=== PATIENT | female | born 1960 | race Caucasian/White ===

== ENCOUNTER 2017-05-21 11:41 | Emergency (ER) | payer OTHER ==
[2017-05-21 11:52] VITALS: TEMP 98.2
[2017-05-21 12:09] LABS: Basophils % (A) 1 %; CHCM 33.4; Eosinophils % (A) 2 %; HCT 43.5 % (34.0-46.0); HDW 2.57; HGB 14.5 gm/dL (11.4-16.0); Luc % (Auto) 2; Lymphocytes % (A) 32 %; MCHC 33.3 g/dL (31.0-37.0); MCV 90.1 fL (80.0-100.0); Mean Platelet Volume 6.3; Monocytes % (A) 4 %; Neutrophils % (A) 59 %; RBC 4.83 m/uL (3.80-5.40); WBC 6.3 k/uL (3.8-10.6); WBC (Perox) 5.92
[2017-05-21 12:10] LABS: Eosinophils # (A) 0.1 k/uL (0-0.7); Luc # (Auto) 0.14; Monocytes # (A) 0.3 k/uL (0-1.0); Neutrophils # (A) 3.7 k/uL (1.3-7.7)
[2017-05-21 12:11] LABS: Anion Gap 9 mmol/L; Blood Urea Nitrogen 16 mg/dL (7-17); Carbon Dioxide 25 mmol/L (22-30); Chloride 105 mmol/L (98-107); Glucose 98 mg/dL (74-99); Sodium 139 mmol/L (137-145)
[2017-05-21 12:12] LABS: ALT 27 U/L (9-52); AST 23 U/L (14-36); Alkaline Phosphatase 82 U/L (38-126); Calcium 9.7 mg/dL (8.4-10.2); Magnesium 1.9 mg/dL (1.6-2.3); Non-African American GFR(MDRD) >60 (>60 ml/min/1.73 sqM); Total Bilirubin 0.3 mg/dL (0.2-1.3); Total Protein 7.5 g/dL (6.3-8.2)
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
[2017-05-21 12:22] LABS: Creatine Kinase 610 U/L (30-135)
--- NOTE | 2017-05-21 12:22 | XR ---
EXAMINATION TYPE: XR chest 2V DATE OF EXAM: 05/21/2017 COMPARISON: 08/01/2016 TECHNIQUE: PA and lateral views submitted. HISTORY: Chest pain FINDINGS: The lungs are clear and there is no pneumothorax, pleural effusion, or focal pneumonia. Postsurgica l change overlying the cervical spine. Atherosclerotic change aorta. No overt failure. Chronic deform ities of the left rib cage. Arthropathy of the shoulder and hypertrophic change of the spine. Subcuta neous metallic device stable. IMPRESSION: 1. No acute process.
[2017-05-21 12:27] LABS: INR 0.9 (<1.2); Partial Thromboplastin Time 28.3 sec (22.0-30.0); Prothrombin Time 9.5 sec (9.0-12.0)
[2017-05-21 12:35] LABS: Creatine Kinase MB 1.4 ng/mL (0.0-2.4); Troponin I <0.012 ng/mL (0.000-0.034)
[2017-05-21 12:45] VITALS: RESP 18
[2017-05-21 13:33] VITALS: BP 186/81; PULSE 74
== END 2017-05-21 13:34 | disposition home or self-care (01) ==
LOC: EC 11:41
DX: R07.1 Chest pain on breathing (principal); E86.0 Dehydration; I10 Essential (primary) hypertension; R55 Syncope and collapse; K21.9 Gastro-esophageal reflux disease without esophagitis; Z79.899 Other long term (current) drug therapy; Z88.6 Allergy status to analgesic agent; Z91.041 Radiographic dye allergy status; Z88.8 Allergy status to other drugs, medicaments and biological substances; Z91.013 Allergy to seafood
CPT/HCPCS: 36415; 71020; 80053; 82550; 82553; 83735; 83880; 84484; 85025; 85379; 85610; 85730; 93005; 99285

== ENCOUNTER 2020-12-27 07:10 | Day surgery (SDC) | payer OTHER ==
[2020-12-25 09:54] VITALS: BMI 34.2
[~2020-12-27 07:10] MED LIST: ALPRAZolam 0.25 MG TAB PO PRN; ALPRAZolam 0.5 MG TAB PO PRN; ATORVASTATIN 80 MG TAB PO STA; NITROGLYCERIN SL TABS 0.4 MG TAB SUBLINGUAL PRN; SODIUM CHLORIDE 0.9% 1,000 ML in EMPTY BAG 1 BAG IV ONE
[2020-12-27] MEDS ORDERED: SODIUM CHLORIDE 0.9% 1,000 ML IV ONE (07:43)
[2020-12-27 07:45] VITALS: RESP 16; TEMP 97.7
[2020-12-27] MEDS ORDERED: METOPROLOL SUCCINATE (ER) 25 MG TAB.ER.24H PO STA (07:49)
[2020-12-27 07:54] LABS: Basophils % (A) 0 %; Eosinophils % (A) 0 %; HCT 42.1 % (34.0-46.0); Lymphocytes # (A) 1.4 k/uL (1.0-4.8); Lymphocytes % (A) 11 %; MCH 30.3 pg (25.0-35.0); MCHC 33.1 g/dL (31.0-37.0); MCV 91.3 fL (80.0-100.0); Mean Platelet Volume 6.9; Monocytes # (A) 0.5 k/uL (0-1.0); Monocytes % (A) 4 %; Neutrophils # (A) 10.3 k/uL (1.3-7.7); Neutrophils % (A) 84 %; Platelet Count 355 k/uL (150-450); RBC 4.61 m/uL (3.80-5.40); RDW 13.7 % (11.5-15.5); WBC 12.3 k/uL (3.8-10.6)
[2020-12-27 08:26] LABS: African American GFR (CKD) >90 (>60 ml/min/1.73 sqM); Anion Gap 12 mmol/L; Blood Urea Nitrogen 23 mg/dL (7-17); Carbon Dioxide 23 mmol/L (22-30); Chloride 106 mmol/L (98-107); Glucose 146 mg/dL (74-99); Non-African American GFR(CKD) 79 (>60 ml/min/1.73 sqM); Potassium 4.5 mmol/L (3.5-5.1); Sodium 141 mmol/L (137-145)
[2020-12-27] MEDS ORDERED: BENZOCAINE SPRAY 1 CAN MUCOUS MEM ONE (09:25)
[2020-12-27] MEDS: fentaNYL (PF) 50 MCG/ML 2 ML AMP IV ONE ×2 (09:25→09:28)
[2020-12-27] MEDS ORDERED: MIDAZOLAM 2 MG/2 ML VIAL IV ONE ×4 (09:25→10:10)
[2020-12-27] MEDS ORDERED: IV FLUID CONTINUATION 1,000 ML IV ONE (10:00)
[2020-12-27] MEDS ORDERED: fentaNYL (PF) 50 MCG/ML 2 ML AMP IV ONE (10:10)
[2020-12-27] MEDS ORDERED: LIDOCAINE 1% INJ 10MG/ML (20 ML MDV) SQ ONE (10:12)
[2020-12-27] MEDS ORDERED: VERAPAMIL SYRINGE (5 MG/10 ML) INTRAARTER ONE (10:15)
[2020-12-27] MEDS ORDERED: HEPARIN SODIUM 1,000 UN/ML (10ML VL) IV ONE (10:21)
[2020-12-27] MEDS ORDERED: IOPAMIDOL-370 125ML BTL INJ ONE (10:27)
--- NOTE | 2020-12-27 12:42 | P.TEE ---
Description of Procedure(s): Procedure performed: Transesophageal Echocardiogram with color flow doppler, pulsed wave doppler and continuous wave doppler, moderate conscious sedation Moderate conscious sedation: Moderate conscious sedation was supplied with direct supervision of myself using Versed and Fentanyl. Complications: none Indications: Moderate to severe aortic stenosis, chest pain and shortness breath with exertion History: Patient is a pleasant 60-year-old female with history of atrial tachycardia and moderate to severe aortic stenosis. She has been having increased symptoms of dyspnea on exertion and chest pain and therefore primary tube builder recommended MARLENE and heart catheterization to further assess. PROCEDURE: After the risks, benefits and alternatives of the above mentioned procedure was explained in detail with the patient, informed consent was obtained. Patient was brought to the lab in a fasting state. Patient was given IV Versed and Fentanyl for sedation. The throat was sprayed with Hurricane to anesthetize the throat. A lubricated Omni probe was then introduced into the esophagus and stomach and multiple views were obtained. 2D echo with color flow doppler, pulsed wave doppler and continuous wave doppler was utilized. Agitated saline bubbles were injected to assess for any intra-atrial shunt. The probe was then removed. Patient tolerated the procedure well. Patient was transferred to the post procedure area in stable and satisfactory condition. FINDINGS: 1. The aortic valve appears to be bicuspid with fusion of the noncoronary and left coronary cusps. There is severe aortic calcification and sclerosis with decreased cusp mobility. There is severe aortic stenosis with a max of 4.7 m/s and a mean gradient of 56 mmHg. There is mild to moderate aortic regurgitation. 2. The mitral valve appears be normal with mild mitral regurgitation.. 3. Tricuspid valve appears to be normal with trace tricuspid regurgitation. 4. The interatrial septum is intact. No evidence of PFO. 5. Left atrial appendage is free of clot. 6. Left ventricular size and function appear to be normal. Ejection fraction 60% without wall motion abnormalities 7. Left atrium appears to be mildly dilated.
[2020-12-27] MEDS ORDERED: RX INFO: IV CONTRAST WAS GIVEN 1 EACH MISC MISCELLANE PRN (12:44)
--- NOTE | 2020-12-27 12:44 | P.CARDCATH ---
Description of Procedure: PROCEDURES PERFORMED: Bilateral coronary angiography INDICATION: Severe aortic stenosis HISTORY: Patient is a pleasant 60-year-old female with history of hypertension, hyperlipidemia, moderate to severe aortic stenosis who has been having increased episodes of dyspnea on exertion as well as chest pain and therefore was recommended by primary digital advertising specialist to have MARLENE and heart catheterization to further assess. CONSENT:I have discussed the risks, benefits and alternative therapies for the above-mentioned procedure and for both sedation/analgesia as well as necessary blood product administration, if indicated, as they pertain to this patient. The patient has indicated understanding and acceptance of the risks and procedures discussed. PROCEDURE: After the risks, benefits and alternatives of the above mentioned procedure explained in detail with the patient, informed consent was obtained. Patient was taken to the catheterization lab and prepped and draped in usual fashion. 1% lidocaine was used to anesthetize the right radial artery. A 6- Bhutanese sheath was placed in the right radial artery using modified Seldinger technique. Left coronary angiography was performed with a 5-Bhutanese JL 3.5 catheter and right coronary angiography was performed with a 5-Bhutanese JR5 catheter in various views. The right radial sheath was removed and a TR band was placed with hemostasis achieved. The patient tolerated the procedure well. Patient was transported back to the post catheterization holding area in stable condition. Conscious Sedation: Patient was monitored under the direct supervision of vision of myself for conscious sedation using Versed and fentanyl for a total duration of 20 minutes HEMODYNAMICS: Aorta: 147/82 SELECTIVE CORONARY ARTERIOGRAPHY: LEFT MAIN: The left main is a large caliber vessel which bifurcates into the LAD and circumflex. There is no significant stenosis. LEFT ANTERIOR DESCENDING CORONARY ARTERY: LAD is a large caliber vessel which wraps around to the apex. There is a mid 40% LAD stenosis and otherwise only mild luminal irregularities. LEFT CIRCUMFLEX CORONARY ARTERY: Left circumflex is a moderate caliber vessel. The circumflex is tortuous. There are mild luminal irregularities. RIGHT CORONARY ARTERY: The right coronary artery is a large caliber vessel which gives off a PDA and PLV branch and is the dominant vessel. There is no significant stenosis. FINAL IMPRESSION: 1. Relatively normal coronary arteries other than a mid LAD 40% stenosis PLAN: 1. Aggressive risk factor modification per most recent ACC/AHA guidelines. 2. Follow-up in the office in 1-2 weeks.
[2020-12-27 14:10] VITALS: BP 132/69; PULSE 65
== END 2020-12-27 14:23 | disposition home or self-care (01) ==
LOC: CATHCVL 07:10
PROVIDERS: ATTEND Internal Medicine
DX: I08.3 Combined rheumatic disorders of mitral, aortic and tricuspid valves (principal); I25.10 Atherosclerotic heart disease of native coronary artery without angina pectoris; I77.1 Stricture of artery; I47.1 Supraventricular tachycardia; I10 Essential (primary) hypertension; Z20.822 Contact with and (suspected) exposure to COVID-19; M32.9 Systemic lupus erythematosus, unspecified; E78.5 Hyperlipidemia, unspecified; M79.7 Fibromyalgia; M06.9 Rheumatoid arthritis, unspecified; E78.01 Familial hypercholesterolemia; Z91.040 Latex allergy status; Z88.8 Allergy status to other drugs, medicaments and biological substances; Z91.048 Other nonmedicinal substance allergy status; Z79.899 Other long term (current) drug therapy
CPT/HCPCS: 93312; 93320; 93325; 93454; 80048; 85025; 87635; C1894; C1769; J2250; J2001; J3010; J1644; Q9967

== ENCOUNTER 2021-02-19 12:04 | Observation (INO) | payer OTHER ==
[2021-02-19] MEDS ORDERED: NITROGLYCERIN OINT 1 INCH/GM PACKET TOPICAL STA (12:18)
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
[2021-02-19 12:55] LABS: Basophils # (A) 0.1 k/uL (0-0.2); Basophils % (A) 1 %; Eosinophils # (A) 0.1 k/uL (0-0.7); Eosinophils % (A) 1 %; HCT 43.3 % (34.0-46.0); HGB 14.2 gm/dL (11.4-16.0); Lymphocytes # (A) 2.2 k/uL (1.0-4.8); Lymphocytes % (A) 26 %; MCH 29.7 pg (25.0-35.0); MCHC 32.8 g/dL (31.0-37.0); MCV 90.5 fL (80.0-100.0); Mean Platelet Volume 7.1; Monocytes # (A) 0.3 k/uL (0-1.0); Monocytes % (A) 4 %; Neutrophils # (A) 5.5 k/uL (1.3-7.7); Neutrophils % (A) 67 %; Platelet Count 292 k/uL (150-450); RBC 4.78 m/uL (3.80-5.40); RDW 13.5 % (11.5-15.5); WBC 8.2 k/uL (3.8-10.6)
--- NOTE | 2021-02-19 12:57 | XR ---
EXAMINATION TYPE: XR chest 2V DATE OF EXAM: 02/19/2021 COMPARISON: 05/21/2017 TECHNIQUE: PA and lateral views submitted. HISTORY: Pain FINDINGS: The heart is normal in size and there is atherosclerotic changes aorta with coarsened interstitium an d chronic rib deformities. Arthropathy of the shoulders. Postsurgical change overlying the cervical s pine. No pneumothorax or pleural effusion. Degenerative changes of the spine. IMPRESSION: 1. Heart size is normal in the interstitium is coarsened which may be chronic correlate for bronchiti s. Chronic interstitial lung disease in the differential.
[2021-02-19 13:12] LABS: ALT 21 U/L (4-34); AST 29 U/L (14-36); African American GFR (CKD) >90 (>60 ml/min/1.73 sqM); Albumin 4.7 g/dL (3.5-5.0); Alkaline Phosphatase 76 U/L (38-126); Anion Gap 7 mmol/L; Blood Urea Nitrogen 18 mg/dL (7-17); Calcium 10.2 mg/dL (8.4-10.2); Carbon Dioxide 29 mmol/L (22-30); Chloride 103 mmol/L (98-107); Glucose 110 mg/dL (74-99); Non-African American GFR(CKD) >90 (>60 ml/min/1.73 sqM); Potassium 4.8 mmol/L (3.5-5.1); Sodium 139 mmol/L (137-145); Total Bilirubin 0.4 mg/dL (0.2-1.3); Total Protein 7.5 g/dL (6.3-8.2)
[2021-02-19 13:17] LABS: D-Dimer 0.41 mg/L FEU (<0.60); INR 0.9 (<1.2); Prothrombin Time 9.6 sec (9.0-12.0)
[2021-02-19 13:38] LABS: Partial Thromboplastin Time 21.9 sec (22.0-30.0)
[2021-02-19] MEDS ORDERED: NITROGLYCERIN SL TABS 0.4 MG TAB SUBLINGUAL PRN (14:41)
[2021-02-19] MEDS: NITROGLYCERIN OINT 1 INCH/GM PACKET TOPICAL SCH ×2 (16:05→18:30)
[2021-02-19] MEDS ORDERED: CYCLOBENZAPRINE 5 MG TAB PO PRN (17:38)
[2021-02-19] MEDS ORDERED: ONDANSETRON ODT 4 MG TAB PO PRN (17:38)
[2021-02-19] MEDS ORDERED: diazePAM 2 MG TAB PO PRN (17:38)
[2021-02-19] MEDS ORDERED: bisacodyL 5 MG TABLET.DR PO PRN (17:38)
[2021-02-19] MEDS ORDERED: HEPARIN SODIUM 1,000 UN/ML (10ML VL) IV ONE (17:42)
[2021-02-19] MEDS ORDERED: HEPARIN SODIUM 1,000 UN/ML (10ML VL) IV PRN (17:42)
[2021-02-19] MEDS ORDERED: HEPARIN SOD,PORK IN 0.45% NACL 25,000 UNIT in 0.45% NACL 1 250ML.BAG IV SCH (17:45)
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
[2021-02-19] MEDS ORDERED: lisinopriL 20 MG TAB PO SCH (21:00)
[2021-02-19] MEDS: FOLIC ACID 1 MG TAB PO SCH (21:32)
[2021-02-20] MEDS: NITROGLYCERIN OINT 1 INCH/GM PACKET TOPICAL SCH ×2 (00:13→06:23)
[2021-02-20 07:29] LABS: Basophils % (A) 1 %; Eosinophils # (A) 0.1 k/uL (0-0.7); Eosinophils % (A) 2 %; HCT 38.1 % (34.0-46.0); HGB 13.1 gm/dL (11.4-16.0); Lymphocytes # (A) 2.5 k/uL (1.0-4.8); Lymphocytes % (A) 39 %; MCH 31.1 pg (25.0-35.0); MCHC 34.2 g/dL (31.0-37.0); MCV 90.7 fL (80.0-100.0); Mean Platelet Volume 6.9; Monocytes # (A) 0.3 k/uL (0-1.0); Monocytes % (A) 5 %; Neutrophils # (A) 3.4 k/uL (1.3-7.7); Neutrophils % (A) 53 %; Platelet Count 231 k/uL (150-450); RBC 4.21 m/uL (3.80-5.40); RDW 13.1 % (11.5-15.5); WBC 6.4 k/uL (3.8-10.6)
[2021-02-20 07:37] LABS: INR 0.9 (<1.2); Prothrombin Time 10.2 sec (9.0-12.0)
[2021-02-20] MEDS ORDERED: METOPROLOL SUCCINATE (ER) 25 MG TAB.ER.24H PO SCH (09:00)
[2021-02-20] MEDS: FOLIC ACID 1 MG TAB PO SCH (09:22)
[2021-02-20 10:19] VITALS: BP 158/89; PULSE 72; RESP 18; TEMP 97.6
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
[2021-02-20 11:51] LABS: Chol/HDL Ratio 7.63
[2021-02-20] MEDS ORDERED: EZETIMIBE 10 MG TAB PO SCH (12:00)
--- NOTE | 2021-02-20 14:58 | P.DS ---
Providers Date of admission: 02/19/21 14:41 Attending physician: Enedina Barbour Consults: 02/19/21 14:41 Consult Physician Urgent Consulting Provider: Junaid Mcneill Consult Reason/Comments: cp Do you want consulting provider notified?: Yes Primary care physician: Aubrey Clinton MD Hospital Course: Patient was a 61-year-old female came in with complaints of chest pain which is started after she became anxious while at dentist's office and was in pain at that time at the time her blood pressure was high patient did take some of her blood pressure medication after the dental procedure. Patient believes it's her anxiety although the dental office did call EMS and patient was sent to ER. Patient had some T-wave inversions from lead 4 to lead 6 on the EKG patient chest pain resolved denied any diaphoresis denied any nausea lightheadedness associated with the her chest pain. Patient does have history of severe mitral valvular disease for which patient is being evaluated for valve replacement. Patient doesn't have any history of heart failure had a recent cardiac catheterization in month of December 2020 which did not show any significant occlusion in any of the coronary arteries except f or 40% occlusion in the mid LAD. Patient does have mildly elevated troponins of 0.04 and 0.06. Chest x-ray was suspicious for atypical pneumonia although patient doesn't have any symptoms of atypical pneumonia. D-dimer is negative 02/20/2021 Patient was evaluated by cardiology cleared for discharge. Patient had has a recent cardiac catheterization which did not show any significant atheroscle rotic vascular disease. PHYSICAL EXAMINATION: GENERAL: The patient is alert and oriented x3, not in any acute distress. Well developed, well nourished. HEENT: Pupils are round and equally reacting to light. EOMI. No scleral icterus. No conjunctival pallor. Normocephalic, atraumatic. No pharyngeal erythema. No thyromegaly. CARDIOVASCULAR: S1 and S2 present. No murmurs, rubs, or gallops. PULMONARY: Chest is clear to auscultation, no wheezing or crackles. ABDOMEN: Soft, nontender, nondistended, normoactive bowel sounds. No palpable organomegaly. MUSCULOSKELETAL: No joint swelling or deformity. EXTREMITIES: No cyanosis, clubbing, or pedal edema. NEUROLOGICAL: Gross neurological examination did not reveal any focal deficits. SKIN: No rashes. Assessment and plan -Chest pain: Most probably related to anxiety patient had a recent cardiac catheterization and cardiac catheterization findings as mentioned above. Patient will be discharged today. I did stenosis may have contributed to her chest pain and other symptoms of occasional lightheadedness -Mildly elevated troponins low possibility of type I non-ST elevation [place] -Ruled out pulmonary embolism -Severe aortic stenosis without any congestive heart failure -Gastroesophageal reflux disease -hypertension -hyperlipidemia -Fibromyalgia Plan - Discharge Summary Discharge Rx Participant: No New Discharge Prescriptions: Continue diazePAM [Valium] 2 mg PO BID PRN PRN Reason: Anxiety oxyCODONE HCL [OxyIR] 5 mg PO Q6H PRN PRN Reason: Pain Ondansetron [Zofran ODT] 4 mg PO TID PRN PRN Reason: Nausea And Vomiting Cyclobenzaprine [Flexeril] 10 mg PO Q8H PRN PRN Reason: Muscle Pain/Spasm lisinopriL [Zestril] 20 mg PO HS Ergocalciferol (Vitamin D2) [Vitamin D2] 50,000 unit PO MOFR bisacodyL [Dulcolax] 5 mg PO DAILY PRN PRN Reason: Constipation Folic Acid 1 mg PO BID Ezetimibe [Zetia] 10 mg PO DAILY@1200 Metoprolol Succinate [Toprol XL] 25 mg PO DAILY Discharge Medication List Cyclobenzaprine [Flexeril] 10 mg PO Q8H PRN 05/28/16 [History] Ondansetron [Zofran ODT] 4 mg PO TID PRN 05/28/16 [History] diazePAM [Valium] 2 mg PO BID PRN 05/28/16 [History] lisinopriL [Zestril] 20 mg PO HS 05/28/16 [History] oxyCODONE HCL [OxyIR] 5 mg PO Q6H PRN 05/28/16 [History] Ergocalciferol (Vitamin D2) [Vitamin D2] 50,000 unit PO MOFR 05/21/17 [History] Ezetimibe [Zetia] 10 mg PO DAILY@1200 12/25/20 [History] Metoprolol Succinate [Toprol XL] 25 mg PO DAILY 12/25/20 [History] bisacodyL [Dulcolax] 5 mg PO DAILY PRN 12/25/20 [History] Folic Acid 1 mg PO BID 02/19/21 [History] Follow up Appointment(s)/Referral(s): Junaid Mcneill MD [STAFF PHYSICIAN] - 02/28/21 4:15 pm (Please keep previously scheduled appointment. ) Aubrey Clinton MD [Primary Care Provider] - 03/11/21 1:30 pm (Please keep previously scheduled appointment. ) Patient Instructions/Handouts: Chest Pain (DC), Aortic Stenosis (DC) Discharge Disposition: HOME SELF-CARE
[2021-02-21] MEDS ORDERED: ERGOCALCIFEROL 1,250 MCG (50,000 IU) CAPSULE PO SCH (09:00)
== END 2021-02-20 14:15 | disposition home or self-care (01) ==
LOC: EC 12:04 → 3SCARD 14:41
PROVIDERS: ADMIT Internal Medicine; ATTEND Internal Medicine
DX: R07.89 Other chest pain (principal); I08.0 Rheumatic disorders of both mitral and aortic valves; I25.10 Atherosclerotic heart disease of native coronary artery without angina pectoris; R79.89 Other specified abnormal findings of blood chemistry; I10 Essential (primary) hypertension; I47.1 Supraventricular tachycardia; I48.0 Paroxysmal atrial fibrillation; J84.9 Interstitial pulmonary disease, unspecified; E78.5 Hyperlipidemia, unspecified; F41.9 Anxiety disorder, unspecified; K21.9 Gastro-esophageal reflux disease without esophagitis; M06.9 Rheumatoid arthritis, unspecified; M79.7 Fibromyalgia; G43.909 Migraine, unspecified, not intractable, without status migrainosus; L93.1 Subacute cutaneous lupus erythematosus; K51.90 Ulcerative colitis, unspecified, without complications; G62.9 Polyneuropathy, unspecified; R41.3 Other amnesia; Z20.822 Contact with and (suspected) exposure to COVID-19; Z79.899 Other long term (current) drug therapy; Z88.6 Allergy status to analgesic agent; Z91.041 Radiographic dye allergy status; Z91.040 Latex allergy status; Z91.013 Allergy to seafood; Z88.8 Allergy status to other drugs, medicaments and biological substances; Z91.048 Other nonmedicinal substance allergy status; Z87.11 Personal history of peptic ulcer disease; Z87.820 Personal history of traumatic brain injury; Z90.710 Acquired absence of both cervix and uterus; Z90.49 Acquired absence of other specified parts of digestive tract; Z98.891 History of uterine scar from previous surgery; Z98.890 Other specified postprocedural states; Z80.9 Family history of malignant neoplasm, unspecified
CPT/HCPCS: 96366 ×3; 93005 ×2; 96376; 96365; 99285; 36415; 85379; 83880; 80061; 80053; 83735; 84484; 85025 ×2; 85610 ×2; 85730 ×2; 83721; 87635; 71046; G0378 ×2; J1644 ×2

== ENCOUNTER → 2021-03-11 | Outpatient (CLI) | payer OTHER ==
[2021-03-11 10:12] LABS: INR 0.9 (<1.2)
[2021-03-11 10:14] LABS: HCT 38.8 % (34.0-46.0); HGB 13.3 gm/dL (11.4-16.0); MCHC 34.2 g/dL (31.0-37.0); MCV 90.5 fL (80.0-100.0); Mean Platelet Volume 7.4; Platelet Count 281 k/uL (150-450); RBC 4.28 m/uL (3.80-5.40); RDW 12.9 % (11.5-15.5); WBC 9.7 k/uL (3.8-10.6)
[2021-03-11 10:20] LABS: ALT 26 U/L (4-34); AST 34 U/L (14-36); African American GFR (CKD) >90 (>60 ml/min/1.73 sqM); Albumin 4.8 g/dL (3.5-5.0); Alkaline Phosphatase 81 U/L (38-126); Anion Gap 6 mmol/L; Appearance,Urine Clear (Clear); Bilirubin,Urine Negative (Negative); Blood Urea Nitrogen 11 mg/dL (7-17); Blood,Urine Negative (Negative); Calcium 10.2 mg/dL (8.4-10.2); Carbon Dioxide 29 mmol/L (22-30); Chloride 104 mmol/L (98-107); Color,Urine Yellow; Glucose 115 mg/dL (74-99); Glucose,Urine (UA) Negative (Negative); Ketones,Urine Negative (Negative); Leukocyte Esterase,Urine Negative (Negative); Magnesium 1.9 mg/dL (1.6-2.3); Nitrite,Urine Negative (Negative); Non-African American GFR(CKD) 85 (>60 ml/min/1.73 sqM); Potassium 3.8 mmol/L (3.5-5.1); Protein,Urine Trace (Negative); Sodium 139 mmol/L (137-145); Specific Gravity,Urine 1.017 (1.001-1.035); Total Bilirubin 0.7 mg/dL (0.2-1.3); Total Protein 7.7 g/dL (6.3-8.2); Urobilinogen,Urine <2.0 mg/dL (<2.0)
[2021-03-11 11:53] LABS: T4, Free (Free Thyroxine) 1.29 ng/dL (0.78-2.19)
--- NOTE | 2021-03-11 14:36 | US ---
EXAMINATION TYPE: US carotid duplex BILAT DATE OF EXAM: 03/11/2021 COMPARISON: NONE CLINICAL HISTORY: OPEN HEART. EXAM MEASUREMENTS: RIGHT: Peak Systolic Velocity (PSV) cm/sec ----- Right CCA: 81.7 ----- Right ICA: 94.3 ----- Right ECA: 91.0 ICA/CCA ratio: 1.2 RIGHT: End Diastole cm/sec ----- Right CCA: 22.3 ----- Right ICA: 32.6 ----- Right ECA: 19.4 LEFT: Peak Systolic Velocity (PSV) cm/sec ----- Left CCA: 78.9 ----- Left ICA: 103.1 ----- Left ECA: 119.0 ICA/CCA ratio: 1.3 LEFT: End Diastole cm/sec ----- Left CCA: 18.3 ----- Left ICA: 34.5 ----- Left ECA: 18.8 VERTEBRALS (direction of flow): Right Vertebral: Antegrade Left Vertebral: Antegrade Rhythm: Normal Moderate plaque at bulbs bilaterally. No significant stenosis IMPRESSION: Atherosclerosis without sonographic evidence for hemodynamically significant stenosis in the bilatera l carotid arteries. Criteria for Assigning % of Stenosis / Diameter reduction (Estimation based on the indirect measurements of the internal carotid artery velocities (ICA PSV). 1. Normal (no stenosis)=ICA PSV < 125 cm/s: ratio < 2.0: ICA EDV<40 cm/s. 2. Less than 50% stenosis=ICA PSV < 125 cm/s: ratio < 2.0: ICA EDV<40 cm/s. 3. 50 to 69% stenosis=ICA PSV of 125 to 230 cm/s: ration 2.0 ? 4.0: ICA EDV 40-100 cm/s. 4. Greater than 70% stenosis to near occlusion= ICA PSV > 230 cm/s: ratio > 4.0: ICA EDV > 100 cm/s. 5. Near occlusion= ICA PSV velocities may be low or undetectable: variable ratio and ICA EDV. 6. Total occlusion=unable to detect flow.
[2021-03-11 18:53] LABS: Hemoglobin A1C 5.7 % (4.0-6.0)
[2021-03-12 01:20] LABS: Chol/HDL Ratio 5.88; Cholesterol 247 mg/dL (0-200)
[2021-03-12 03:01] LABS: Hepatitis B Core IgM Non-Reactive (Non-Reactive); Hepatitis B Surface Antigen Non-Reactive (Non-Reactive); Hepatitis C IgG Antibody Non-Reactive (Non-Reactive)
--- NOTE | 2021-03-12 12:30 | P.VSCSTY ---
Greater Saphenous Vein Mapping This is bilateral lower extremity greater saphenous vein mapping. Date of service: 03/11/2021 Vein quality and ultrasound appearance: We see no intraluminal thrombus or obvious wall changes.. Vein size groin right : 6.6 x 6.0 groin left: 6.2 x 5.0 High thigh right: 2.7 x 2.8 high thigh left: 5.1 x 4.0 Mid thigh right: 1.6 x 2.2 mid thigh left: 3.2 x 3.1 Above-knee right: 1.6 x 1.9 above- knee left: 2.5 x 2.0 Below knee right: 2.3 x 2.1 below-knee left: 2.2 x 2.4 Mid calf right: 2.3 x 2.7 mid calf left: 2.3 x 2.2 Ankle right: 2.6 x 1.7 ankle left: 2.2 x 2.1 Impression: Usable greater saphenous vein left leg. There is an area at the knee that may be a bit small for use as conduit. There may be some upper thigh vein usable on the right greater saphenous and potentially below the knee on the right. Mid thigh to knee appear to small for use as conduit. Clinical correlation recommended..
--- NOTE | 2021-03-12 12:30 | P.ARTDOP ---
Arterial Doppler LOWER EXTREMITY ARTERIAL DOPPLER: DATE OF SERVICE: 03/11/2021 Reason for study: Preop CABG. Doppler waveforms: Multiphasic bilaterally throughout. Pulse volume recording: []. Pressure gradients: None. Ankle-brachial indices: Greater than 1 bilaterally. Toe brachial indices: [] on the right, [] on the left Impression: Normal study.
[2021-03-13 16:36] LABS: Hepatitis A Antibody IgM Non-Reactive (Non-Reactive)
== END | disposition home or self-care (01) ==
LOC: LABPAT 08:50
PROVIDERS: ATTEND Thoracic Surgery (Cardiothoracic Vascular Surgery)
DX: Z01.810 Encounter for preprocedural cardiovascular examination (principal); Z20.822 Contact with and (suspected) exposure to COVID-19; I65.23 Occlusion and stenosis of bilateral carotid arteries; I10 Essential (primary) hypertension; I25.10 Atherosclerotic heart disease of native coronary artery without angina pectoris; I35.0 Nonrheumatic aortic (valve) stenosis; M06.9 Rheumatoid arthritis, unspecified; E78.5 Hyperlipidemia, unspecified
CPT/HCPCS: 94150; 84439; 80061; 80053; 80074; 84443; 83735; 85027; 85610; 85730; 81003; 87070; 87086; 83036; 93970; 93922; 93880; 36415; U0003; C9803; U0005; 93923

== ENCOUNTER 2021-03-14 05:32 | Inpatient (IN) | payer OTHER ==
--- NOTE | 2021-03-11 10:26 | P.PN ---
Progress Note - Text Progress Note Date: 03/11/21 5 meter walk test completed without difficulty: #1 4.02 sec #2 4.05 sec #3 3.66 sec
[~2021-03-14 05:32] MED LIST changes: +ALBUMIN HUMAN 25% 50 ML IV ONE; +ALBUMIN HUMAN 5% 500 ML IVPB ONE; -ALPRAZolam 0.25 MG TAB PO PRN; -ALPRAZolam 0.5 MG TAB PO PRN; +ASPIRIN 325 MG TAB PO ONE; +ATORVASTATIN 10 MG TAB PO ONE; -ATORVASTATIN 80 MG TAB PO STA; +CALCIUM CHLORIDE 100 MG/ML 10 ML SYRINGE IV ONE; +CHLORHEXIDINE GLUCONATE 15 ML CUP MUCOUS MEM ONE; +CLEVIDIPINE BUTYRATE 25 MG in EMPTY BAG 1 BAG IV ONE; +ELECTROLYTE-A SOLUTION 1,000 ML with POTASSIUM CHLORIDE 100 MEQ, MAGNESIUM SULFATE 16 M... IV ONE; +ELECTROLYTE-A SOLUTION 1,000 ML with POTASSIUM CHLORIDE 40 MEQ, MAGNESIUM SULFATE 16 ME... IV ONE; +HEPARIN SODIUM 1,000 UN/ML (10ML VL) IV ONE; +HEPARIN SODIUM,PORCINE 5,000 UNIT in SODIUM CHLORIDE 0.9% 500 ML 500 ML IV ONE; +INSULIN REGULAR 100 UNIT in SODIUM CHLORIDE 0.9% 100 ML IV ONE; +LACTATED RINGERS 1,000 ML IV ONE; +LACTATED RINGERS 1,000 ML IV SCH; +MAGNESIUM SULFATE MG 500 MG/ML IV ONE; +MANNITOL 25% 12.5 GM/50 ML VIAL IV ONE; +METOPROLOL TARTRATE 12.5 MG TAB PO ONE; +NITROGLYCERIN SL TABS 0.4 MG TAB SUBLINGUAL ONE; -NITROGLYCERIN SL TABS 0.4 MG TAB SUBLINGUAL PRN; +NITROGLYCERIN-D5W PMX 25 MG/250 ML BTL IV ONE; +NITROGLYCERIN-D5W PMX 50 MG in DEXTROSE/WATER 1 250ML.BAG IV ONE; +NOREPINEPHRINE 4 MG in SODIUM CHLORIDE 0.9% 250 ML IV ONE; +PAPAVERINE 360 MG in SODIUM CHLORIDE 0.9% 90 ML IV ONE; +PHENYLEPHRINE 10 MG/ML VIAL IV ONE; +PHENYLEPHRINE 40 MG in SODIUM CHLORIDE 0.9% 250 ML IV ONE; +PROTAMINE SULFATE 10 MG/ML 25 ML VIAL IV ONE; +PROTAMINE SULFATE 250 MG in EMPTY BAG 1 BAG IV ONE; +SODIUM BICARB 8.4% 50 ML SYR (1 MEQ/ML) IV ONE; +SODIUM CHLORIDE 0.9% 1,000 ML IV ONE; -SODIUM CHLORIDE 0.9% 1,000 ML in EMPTY BAG 1 BAG IV ONE; +TRANEXAMIC ACID 2,000 MG in SODIUM CHLORIDE 0.9% 80 ML IV ONE; +propofoL 1,000 MG/100 ML VIAL IV ONE
[2021-03-14] MEDS ORDERED: LIDOCAINE 1% (10MG/ML) FOR IV START INTRADERMA ONE (06:18)
[2021-03-14] MEDS ORDERED: MIDAZOLAM 2 MG/2 ML VIAL IV PRN (07:00)
[2021-03-14] MEDS ORDERED: VECURONIUM 10 MG VIAL IV ONE (07:44)
[2021-03-14] MEDS ORDERED: ELECTROLYTE-R (PH 7.4) 1,000 ML IV.SOLN IV ONE (07:44)
[2021-03-14] MEDS ORDERED: SODIUM CHLORIDE 0.9% 250 ML BAG ONE (07:44)
[2021-03-14] MEDS ORDERED: TRANEXAMIC ACID 1,000 MG/10 ML VIAL ONE (07:44)
[2021-03-14] MEDS ORDERED: MAGNESIUM SULFATE 4 MEQ/ML 10ML VIAL ONE (07:44)
[2021-03-14] MEDS ORDERED: CALCIUM CHLORIDE 100 MG/ML 10 ML SYRINGE ONE (07:44)
[2021-03-14] MEDS ORDERED: PROTAMINE SULFATE 10 MG/ML 25 ML VIAL IV ONE (07:44)
[2021-03-14] MEDS ORDERED: fentaNYL (PF) 50 MCG/ML 50 ML VIAL ONE (07:44)
[2021-03-14] MEDS ORDERED: CLEVIDIPINE BUTYRATE 25 MG/50 ML VIAL IV ONE (07:44)
[2021-03-14] MEDS ORDERED: PROPOFOL 10 MG/ML 20 ML VIAL IV ONE (07:44)
[2021-03-14] MEDS ORDERED: SODIUM CHLORIDE 0.9% IRRIG 1,000 ML BTL IRRIGATION ONE (07:44)
[2021-03-14] MEDS ORDERED: HEPARIN SODIUM,PORCINE 10,000 UNIT/ML 1 ML VIAL ONE (07:44)
[2021-03-14] MEDS ORDERED: LIDOCAINE 2% SYG (PF) 100 MG/5 ML ONE (07:44)
[2021-03-14] MEDS ORDERED: MIDAZOLAM 2 MG/2 ML VIAL ONE (07:44)
--- NOTE | 2021-03-14 08:00 | P.ANPRN ---
Procedure Note - Anesthesia - Invasive Line Right Arterial Line Time Out Performed: Yes Date of Procedure: 03/14/21 Time of Procedure: 07:41 Location of Patient: Phase II Preparation: Sterile Prep, Sterile Dressing Arterial Line Location: Radial Needle Guage: 20 Narrative: R arterial line placed by PROGRAM MANAGEMENT MANAGER Right Central Line Time Out Performed: Yes Date of Procedure: 03/14/21 Time of Procedure: 07:44 Location of Patient: Phase II Preparation: Sterile Prep, Sterile Dressing Ultrasound Used: Yes Purpose - Visualization and Identification of Vasculature: Yes Needle Guage: 18 Image Stored and Saved: Yes Narrative: 9F cordis placed using Seldinger technique Right Aurora Omar Time Out Performed: Yes Date of Procedure: 03/14/21 Time of Procedure: 07:49 Location of Patient: PreOp Preparation: Sterile Prep, Sterile Dressing Narrative: RICOAN floated to main PA. Secured @ 41 cm
[2021-03-14 08:49] LABS: ABG Base Excess 0.3 mmol/L; ABG HCO3 27 mmol/L (21-25); ABG Hematocrit 36 % (34.0-46.0); ABG PCO2 50 mmHg (35-45); ABG PH 7.33 (7.35-7.45); ABG PO2 281 mmHg (83-108); ABG Potassium Whole Blood 4.1 mmol/L (3.4-4.5); ABG TCO2 28 mmol/L (19-24)
[2021-03-14 09:40] LABS: ABG Base Excess 1.6 mmol/L; ABG HCO3 27 mmol/L (21-25); ABG Hematocrit 33 % (34.0-46.0); ABG Ionized Calcium 4.7 mg/dL (4.5-5.3); ABG PCO2 44 mmHg (35-45); ABG PO2 267 mmHg (83-108); ABG Potassium Whole Blood 4.1 mmol/L (3.4-4.5); ABG Sodium Whole Blood 140 mmol/L (135-146); ABG TCO2 28 mmol/L (19-24)
[2021-03-14 10:10] LABS: ABG Base Excess 0.6 mmol/L; ABG HCO3 25 mmol/L (21-25); ABG Hematocrit 26 % (34.0-46.0); ABG Lactic Acid Whole Blood 0.9 mmol/L (0.5-1.6); ABG PCO2 40 mmHg (35-45); ABG PH 7.41 (7.35-7.45); ABG PO2 318 mmHg (83-108); ABG Sodium Whole Blood 135 mmol/L (135-146); ABG TCO2 27 mmol/L (19-24)
[2021-03-14 10:45] LABS: ABG Base Excess 0.9 mmol/L; ABG HCO3 25 mmol/L (21-25); ABG Hematocrit 25 % (34.0-46.0); ABG Ionized Calcium 4.2 mg/dL (4.5-5.3); ABG Lactic Acid Whole Blood 0.8 mmol/L (0.5-1.6); ABG PCO2 39 mmHg (35-45); ABG PH 7.43 (7.35-7.45); ABG PO2 390 mmHg (83-108); ABG Potassium Whole Blood 5.1 mmol/L (3.4-4.5); ABG Sodium Whole Blood 137 mmol/L (135-146); ABG TCO2 27 mmol/L (19-24)
[2021-03-14 11:42] LABS: ABG Base Excess -0.4 mmol/L; ABG Glucose Whole Blood 136 mg/dL (75-99); ABG HCO3 25 mmol/L (21-25); ABG Hematocrit 29 % (34.0-46.0); ABG Ionized Calcium 4.7 mg/dL (4.5-5.3); ABG Lactic Acid Whole Blood 1.9 mmol/L (0.5-1.6); ABG PCO2 43 mmHg (35-45); ABG PH 7.37 (7.35-7.45); ABG PO2 362 mmHg (83-108); ABG Potassium Whole Blood 4.5 mmol/L (3.4-4.5); ABG Sodium Whole Blood 138 mmol/L (135-146); ABG TCO2 26 mmol/L (19-24)
[2021-03-14 11:46] LABS: ABG Glucose Whole Blood 105 mg/dL (75-99); ABG Lactic Acid Whole Blood 1.5 mmol/L (0.5-1.6); ABG Sodium Whole Blood 140 mmol/L (135-146)
[2021-03-14 11:48] LABS: ABG Glucose Whole Blood 118 mg/dL (75-99); ABG Lactic Acid Whole Blood 1.2 mmol/L (0.5-1.6)
[2021-03-14 11:49] LABS: ABG Glucose Whole Blood 126 mg/dL (75-99)
[2021-03-14 11:50] LABS: ABG Glucose Whole Blood 144 mg/dL (75-99)
--- NOTE | 2021-03-14 12:14 | P.ANPRN ---
Procedure Note - Anesthesia - MARLENE Intraop Pre Bypass MARLENE Intraop - Anesthesia Indication: Aortic stenosis Date of Procedure: 03/14/21 Pre-operative Diagnosis: Post-operative Diagnosis: Same Surgeon: Sergey Mercado Left Ventricle: EF 65% Ejection Fraction: Normal Regional Wall Motion Abnormalities: None Left Ventricle Hypertrophy: Yes (1.2 cm) R. Ventricle Function: Normal Aortic Valve: Peak 70 mmHg, Mean 40 mmHg Anatomy: Trileaflet Aortic Stenosis: Severe Aortic Regurgitation: Mild Mitral Stenosis: None Mitral Regurgitation: Mild Tricuspid Stenosis: None Tricuspid Regurgitation: Mild Pulmonic Stenosis: None Pulmonic Regurgitation: Trace R. Atrial Dilation: No R. Atrial PFO: Yes L. Atrial Dilation: No Aortic Dissection: No Aortic Calcification: Moderate Plural Effusion: None - MARLENE Intraop Post Bypass MARLENE Intraop Post Bypass Procedure Performed: AVR 23 mm bioprosthetic Ejection Fraction: Normal Regional Wall Motion Abnormalities: None R. Ventricle Function: Normal Aortic Valve: Peak 23 mmHg, Mean 9 mmHg Mitral Valve: Unchanged Tricuspid: moderate TR Pulmonic: Unchanged Aortic Dissection: No
[2021-03-14 12:37] LABS: Glucose,Whole Blood 139 mg/dL (75-99)
[2021-03-14] MEDS ORDERED: hydrALAZINE HCL 20 MG/ML 1 ML VIAL IVP PRN (12:38)
[2021-03-14] MEDS ORDERED: DEXTROSE 5% IN WATER 100 ML with AMIODARONE 150 MG IV PRN (12:38)
[2021-03-14] MEDS ORDERED: ALBUMIN HUMAN 5% 250 ML in EMPTY BAG 1 BAG IVPB PRN (12:38)
[2021-03-14] MEDS ORDERED: BENZOCAINE/MENTHOL LOZENG 1 EACH LOZENGE MUCOUS MEM PRN (12:38)
[2021-03-14] MEDS ORDERED: METOCLOPRAMIDE 5 MG/ML 2 ML VIAL IVP PRN (12:38)
[2021-03-14] MEDS ORDERED: Magnesium Replacement Protocol 1 EACH MISC MISCELLANE PRN (12:38)
[2021-03-14] MEDS ORDERED: Potassium Replacement Protocol 1 EACH MISC MISCELLANE PRN (12:38)
[2021-03-14] MEDS ORDERED: CALCIUM GLUCONATE 2 GM in SODIUM CHLORIDE 0.9% 100 ML IVPB PRN (12:38)
[2021-03-14] MEDS ORDERED: Phosphorus Replacement Protoco 1 EACH MISC MISCELLANE PRN (12:38)
[2021-03-14] MEDS ORDERED: IPRATROPIUM-ALBUTEROL 3 ML NEB INHALATION PRN (12:38)
[2021-03-14 12:49] LABS: ABG Base Excess 0.3 mmol/L; ABG HCO3 26 mmol/L (21-25); ABG Oxygen Saturation 99.6 % (94-97); ABG PCO2 45 mmHg (35-45); ABG PH 7.36 (7.35-7.45); ABG PO2 268 mmHg (83-108); ABG TCO2 27 mmol/L (19-24); Allen Test Performed? Yes
[2021-03-14 12:59] LABS: Basophils % (A) 0 %; Eosinophils # (A) 0.1 k/uL (0-0.7); Eosinophils % (A) 1 %; HCT 30.3 % (34.0-46.0); HGB 10.4 gm/dL (11.4-16.0); Lymphocytes # (A) 1.4 k/uL (1.0-4.8); Lymphocytes % (A) 16 %; MCH 31.6 pg (25.0-35.0); MCHC 34.3 g/dL (31.0-37.0); MCV 91.9 fL (80.0-100.0); Mean Platelet Volume 8.1; Monocytes # (A) 0.3 k/uL (0-1.0); Monocytes % (A) 4 %; Neutrophils # (A) 6.9 k/uL (1.3-7.7); Neutrophils % (A) 79 %; Platelet Count 160 k/uL (150-450); RDW 12.9 % (11.5-15.5); WBC 8.8 k/uL (3.8-10.6)
[2021-03-14 13:03] LABS: Ionized Calcium 5.1 mg/dL (4.5-5.3)
--- NOTE | 2021-03-14 13:03 | XR ---
EXAMINATION TYPE: XR chest 1V portable DATE OF EXAM: 03/14/2021 COMPARISON: Chest x-ray 02/19/2021 HISTORY: Postop cardiac surgery TECHNIQUE: Single frontal view of the chest is obtained. FINDINGS: Endotracheal tube and NG tube, right-sided chest tube, median sternal drain and right jugu lar central venous catheter are overlying appropriate positions. Patient is rotated and post median s ternotomy. Left atrial appendage clip placement is noted. Aorta is dense. There is no evident pneumot horax or pleural effusion. Lung volumes are low. Heart size may be accentuated due to rotation. Patie nt shows postop change to the cervical spine. Minimal basilar atelectatic changes are suspected. The osseous structures are stable. IMPRESSION: Satisfactory postoperative chest x-ray, expiratory rotated exam.
[2021-03-14] MEDS: CLEVIDIPINE BUTYRATE 25 MG in EMPTY BAG 1 BAG IV SCH ×2 (13:19→14:39)
[2021-03-14] MEDS: LACTATED RINGERS 1,000 ML IV SCH (13:19)
[2021-03-14 13:23] LABS: Glucose,Whole Blood 143 mg/dL (75-99)
[2021-03-14 13:24] LABS: ALT 25 U/L (4-34); AST 58 U/L (14-36); African American GFR (CKD) >90 (>60 ml/min/1.73 sqM); Albumin 2.6 g/dL (3.5-5.0); Alkaline Phosphatase 37 U/L (38-126); Anion Gap 3 mmol/L; Blood Urea Nitrogen 12 mg/dL (7-17); Calcium 8.4 mg/dL (8.4-10.2); Carbon Dioxide 26 mmol/L (22-30); Chloride 108 mmol/L (98-107); Glucose 130 mg/dL (74-99); Magnesium 2.8 mg/dL (1.6-2.3); Non-African American GFR(CKD) >90 (>60 ml/min/1.73 sqM); Potassium 4.3 mmol/L (3.5-5.1); Sodium 137 mmol/L (137-145); Total Bilirubin 0.4 mg/dL (0.2-1.3); Total Protein 4.4 g/dL (6.3-8.2)
[2021-03-14 13:26] LABS: Partial Thromboplastin Time 30.6 sec (22.0-30.0); Prothrombin Time 10.8 sec (9.0-12.0)
[2021-03-14 14:22] LABS: Glucose,Whole Blood 146 mg/dL (75-99)
[2021-03-14] MEDS: INSULIN REGULAR 100 UNIT in SODIUM CHLORIDE 0.9% 100 ML IV SCH (14:40)
[2021-03-14 15:08] LABS: Glucose,Whole Blood 148 mg/dL (75-99)
[2021-03-14 15:37] LABS: Basophils % (A) 0 %; Eosinophils % (A) 0 %; HCT 36.1 % (34.0-46.0); HGB 12.4 gm/dL (11.4-16.0); Lymphocytes # (A) 1.8 k/uL (1.0-4.8); Lymphocytes % (A) 14 %; MCH 31.4 pg (25.0-35.0); MCHC 34.3 g/dL (31.0-37.0); MCV 91.7 fL (80.0-100.0); Mean Platelet Volume 7.9; Monocytes # (A) 0.5 k/uL (0-1.0); Monocytes % (A) 4 %; Neutrophils # (A) 10.9 k/uL (1.3-7.7); Neutrophils % (A) 81 %; Platelet Count 245 k/uL (150-450); RBC 3.94 m/uL (3.80-5.40); WBC 13.4 k/uL (3.8-10.6)
[2021-03-14] MEDS: DEXMEDETOMIDINE/0.9% NACL(PMX) 400 MCG in EMPTY BAG 1 BAG IV SCH (15:53)
[2021-03-14] MEDS ORDERED: IPRATROPIUM-ALBUTEROL 3 ML NEB INHALATION SCH (16:00)
[2021-03-14 16:19] LABS: Glucose,Whole Blood 160 mg/dL (75-99)
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
[2021-03-14] MEDS ORDERED: MUPIROCIN 2% OINT 22 GM TUBE NASAL ONE (16:30)
[2021-03-14 16:37] LABS: ABG Base Excess 1.1 mmol/L; ABG HCO3 27 mmol/L (21-25); ABG Oxygen Saturation 98.6 % (94-97); ABG PCO2 47 mmHg (35-45); ABG PH 7.36 (7.35-7.45); ABG PO2 117 mmHg (83-108); ABG TCO2 28 mmol/L (19-24); Allen Test Performed? Yes
[2021-03-14 17:06] LABS: Glucose,Whole Blood 166 mg/dL (75-99)
[2021-03-14] MEDS: ACETAMINOPHEN IV (For NPO) 1,000 MG in EMPTY BAG 1 BAG IVPB SCH ×2 (17:09→23:01)
[2021-03-14 18:03] LABS: Glucose,Whole Blood 155 mg/dL (75-99)
--- NOTE | 2021-03-14 18:43 | CONS ---
CONSULTATION Mrs. Chowdhury is a 61-year-old female who is followed by Dr. Mcneill, underwent aortic valve replacement by Dr. Mercado. The patient has underwent cardiac catheterization in December by Dr. Pineda. At that time, was found to have mild obstructive disease in the mid LAD and had a transesophageal echocardiogram performed at the same time, showed bicuspid aortic valve with severe calcification and severe aortic stenosis with a mean gradient of 56 mmHg with mild to moderate aortic regurgitation. She also had mild mitral regurgitation and her left ventricle systolic function was normal. She is intubated and sedated at this time. Hemodynamically stable, in sinus mechanism. She was in the hospital on the 19 of February for vague chest discomfort. She has history of paroxysmal atrial tachycardia and atrial fibrillation, not anticoagulated because of prior bleeding. History of fibromyalgia, rheumatoid arthritis, and hyperlipidemia. MEDICATION: At the time of admission included Zestril 20 mg daily, metoprolol succinate 25 mg daily, Zetia 10 mg daily, and Flexeril. REVIEW OF SYSTEMS: Review of systems could not be obtained. PHYSICAL EXAMINATION: Blood pressure 120/70 with a heart rate in 70s. HEAD: Normocephalic. EYES: Sclerae anicteric. NECK: A Hamilton-Omar catheter noted in the right IJ. LUNGS: Clear to auscultation anteriorly. HEART: Regular rhythm, S1, S2. No S3. No rub or gallop appreciated. ABDOMEN: Soft, hypoactive bowel sounds. No organomegaly. EXTREMITIES: No edema. Dressing in place. LAB DATA: Lab data revealed a BUN and creatinine 12 and 0.62, potassium 4.3. IMPRESSION: 1. Status post aortic valve replacement. 2. Prior history of hyperlipidemia. 3. History of hypertension. 4. History of paroxysmal atrial fibrillation. RECOMMENDATION: From the cardiac standpoint, will continue the routine postoperative care. I am hopeful that she will be able to be weaned and extubated soon and depending on her blood pressure trend, her medical regimen will be adjusted. Thank you for this consult. We will follow with you. FELIPE / FRANCON: [id number] /
[2021-03-14 18:57] LABS: Glucose,Whole Blood 150 mg/dL (75-99)
[2021-03-14] MEDS: HEPARIN SODIUM,PORCINE/PF 5,000 UNIT/0.5 ML SYRINGE SQ SCH ×2 (19:00→23:47)
[2021-03-14] MEDS: EZETIMIBE 10 MG TAB PO SCH (19:00)
[2021-03-14] MEDS: ERGOCALCIFEROL 1,250 MCG (50,000 IU) CAPSULE PO SCH (19:00)
[2021-03-14 19:05] LABS: Basophils % (A) 0 %; Eosinophils % (A) 0 %; HGB 11.8 gm/dL (11.4-16.0); Lymphocytes # (A) 0.7 k/uL (1.0-4.8); Lymphocytes % (A) 6 %; MCH 31.7 pg (25.0-35.0); MCHC 34.8 g/dL (31.0-37.0); MCV 91.1 fL (80.0-100.0); Mean Platelet Volume 6.9; Monocytes # (A) 0.3 k/uL (0-1.0); Monocytes % (A) 3 %; Neutrophils # (A) 9.9 k/uL (1.3-7.7); Neutrophils % (A) 90 %; Platelet Count 215 k/uL (150-450); RBC 3.73 m/uL (3.80-5.40); RDW 13.4 % (11.5-15.5)
[2021-03-14 19:56] LABS: Glucose,Whole Blood 138 mg/dL (75-99)
[2021-03-14] MEDS: IPRATROPIUM-ALBUTEROL 3 ML NEB INHALATION SCH (20:11)
[2021-03-14] MEDS: FOLIC ACID 1 MG TAB PO SCH (20:21)
--- NOTE | 2021-03-14 20:48 | OP ---
OPERATIVE REPORT DATE OF SERVICE: 03/14/2021 ATTENDING SURGEON: Dr. Sergey Mercado. ASSISTANTS: Curt Munoz NP and DALIA Encarnacion. PREOPERATIVE DIAGNOSIS: Severe aortic stenosis. POSTOPERATIVE DIAGNOSIS: Same. PROCEDURE: Aortic valve replacement with a #23 mm Li Inspiris bioprosthetic aortic valve, clip ligation of the left atrial appendage with a 35 mm AtriClip, intraoperative MARLENE, and removal of the left anterior chest wall loop recorder. ANESTHESIA: General. BLOOD LOSS: 500 mL. SUMMARY: Patient brought to the operating room, placed supine position. From confucianist of a general endotracheal anesthetic, placement of a [place]-Omar catheter arterial line adequate IV access and a Pace catheter, the patient was carefully prepped and draped in normal sterile fashion using chlorhexidine paint and sterile towels. A midline incision in the chest made, sternum divided. Pericardium was opened. Heart size was mildly enlarged. Aorta was soft. The patient was then heparinized to an AST of greater than 480. The aorta and vena cava were cannulated. Antegrade and retrograde cardioplegic catheters positioned in the ascending aorta and the coronary sinus. The patient was placed on bypass cross-clamp placed. Heart arrested with 1 L of antegrade followed by 500 mL retrograde cardioplegia. Retrograde cardioplegia was delivered 3-500 mL at the end of each 20 minute interval. First, the base of the left atrial appendage was measured. A 35 mm AtriClip was secured at the base, officially obliterating the left atrial appendage. Next, a transverse aortotomy incision was made 2 cm distal to the takeoff of the right coronary artery. A handheld retractor was placed. The aortic valve was a trileaflet, extremely heavily calcified valve. The valve leaflet was excised, the anulus debrided and it was irrigated out again and again copiously with 2 L of cold saline. There were couple of calcific plaques on the proximal aortic wall and these were gently debrided until there was no evidence of any soft or mobile pieces, and again irrigated out again and again. It sized to a 23 mm Li Inspiris bioprosthetic aortic valve. 2-0 Tycron pledgeted sutures were placed ventricularly based circumferentially. These were then passed through the sewing cuff of the valve, which was seated and seated well. All sutures were then secured, tied and cut using the cor knot ligature system device. The aortotomy incision was then closed in a double layered pledgeted 4-0 Prolene vertical mattress followed by an over and over stitch from both sides. The patient was placed head down. Complete de-airing maneuvers performed 3 times. One L of warm blood retrograde cardioplegia was run. Cross-clamp was then removed. Once beating in normal sinus rhythm, the patient was brought off bypass. Came off bypass uneventfully with good hemodynamics. Protamine delivered, patient decannulated. Atrial ventricular pacing wires were placed. Mediastinal right pleural chest tubes were placed. At this point, the sternum was closed with four #6 sternal wires and 2 [id number] [place] sternal cable closure devices. Skin and subcutaneous tissue, fascia closed in 3 layers. Before closing the subcutaneous tissue, dissection was undertaken through the subcutaneous tissue to the left lateral chest wall, where the loop recorder was opened, removed, and excised and sent to pathology. The capsule was removed. Hemostasis was maintained and then the skin and the subcutaneous tissues and skin were closed. No complications. Postoperative MARLENE showed excellent aortic valve function. No perivalvular leak. Excellent gradients and the patient were transported to the cardiovascular intensive care unit in critical but stable condition. MMODL / IJN: [id number] /
[2021-03-14] MEDS: MUPIROCIN 2% OINT 22 GM TUBE NASAL SCH (20:56)
[2021-03-14 21:13] LABS: Glucose,Whole Blood 127 mg/dL (75-99)
[2021-03-14 23:09] LABS: Glucose,Whole Blood 110 mg/dL (75-99)
[2021-03-15] MEDS ORDERED: HYDROcodone/APAP 5-325MG 1 EACH TAB PO PRN (00:04)
[2021-03-15 00:14] LABS: Glucose,Whole Blood 144 mg/dL (75-99)
[2021-03-15] MEDS: DEXMEDETOMIDINE/0.9% NACL(PMX) 400 MCG in EMPTY BAG 1 BAG IV SCH (01:12)
[2021-03-15 01:24] LABS: Glucose,Whole Blood 130 mg/dL (75-99)
[2021-03-15] MEDS: HYDROcodone/APAP 5-325MG 1 EACH TAB PO PRN ×5 (02:41→21:09)
[2021-03-15 03:06] LABS: Glucose,Whole Blood 119 mg/dL (75-99)
[2021-03-15] MEDS: ONDANSETRON 4 MG/2 ML VIAL IVP PRN (03:37)
[2021-03-15 04:03] LABS: Glucose,Whole Blood 114 mg/dL (75-99)
[2021-03-15 04:37] LABS: Basophils % (A) 0 %; Eosinophils % (A) 0 %; HCT 29.7 % (34.0-46.0); HGB 10.1 gm/dL (11.4-16.0); Lymphocytes # (A) 1.3 k/uL (1.0-4.8); Lymphocytes % (A) 16 %; MCH 31.1 pg (25.0-35.0); MCHC 34.1 g/dL (31.0-37.0); MCV 91.2 fL (80.0-100.0); Mean Platelet Volume 7.5; Monocytes # (A) 0.3 k/uL (0-1.0); Monocytes % (A) 4 %; Neutrophils # (A) 6.3 k/uL (1.3-7.7); Neutrophils % (A) 78 %; Platelet Count 171 k/uL (150-450); RBC 3.25 m/uL (3.80-5.40); RDW 13.4 % (11.5-15.5); WBC 8.1 k/uL (3.8-10.6)
[2021-03-15 05:04] LABS: ALT 24 U/L (4-34); AST 41 U/L (14-36); African American GFR (CKD) >90 (>60 ml/min/1.73 sqM); Albumin 2.7 g/dL (3.5-5.0); Alkaline Phosphatase 44 U/L (38-126); Anion Gap 1 mmol/L; Blood Urea Nitrogen 9 mg/dL (7-17); Calcium 8.2 mg/dL (8.4-10.2); Carbon Dioxide 29 mmol/L (22-30); Chloride 103 mmol/L (98-107); Glucose 105 mg/dL (74-99); Magnesium 2.1 mg/dL (1.6-2.3); Non-African American GFR(CKD) >90 (>60 ml/min/1.73 sqM); Sodium 133 mmol/L (137-145); Total Bilirubin 0.2 mg/dL (0.2-1.3); Total Protein 4.8 g/dL (6.3-8.2)
[2021-03-15] MEDS: CYCLOBENZAPRINE 10 MG TAB PO PRN (05:35)
[2021-03-15 05:40] LABS: Glucose,Whole Blood 133 mg/dL (75-99)
[2021-03-15 07:08] LABS: Glucose,Whole Blood 121 mg/dL (75-99)
[2021-03-15 07:48] LABS: Glucose,Whole Blood 123 mg/dL (75-99)
--- NOTE | 2021-03-15 07:55 | XR ---
EXAMINATION TYPE: XR chest 1V portable DATE OF EXAM: 03/15/2021 COMPARISON: 03/14/2021 and prior HISTORY: 61 years Female. STUDY INDICATION GIVEN: Postoperative cardiac surgery TECHNIQUE: Portable AP semiupright chest radiograph FINDINGS AND IMPRESSION: Right thoracostomy tube tip projecting over the right hemithorax stable in position. [place]-Omar catheter again seen and is also stable in position. A catheter or mediastinal drain courses from inferiorly projecting over the middle mediastinum stable . Postsurgical changes in the mediastinum unchanged. Bibasilar left greater than right opacities again demonstrated with no significant change, could be o n the basis of atelectasis/edema/pneumonia. Enlarged cardiac silhouette stable. No pneumothorax or pleural effusion. No acute osseous abnormality.
--- NOTE | 2021-03-15 08:23 | PN ---
PROGRESS NOTE Mrs. Chowdhury is a 61-year-old female who underwent aortic valve replacement for bicuspid aortic valve disease and had a left atrial appendage clipping. She is doing well this morning. Hemodynamically, she is stable. She denies any chest pain. She denies any dizziness or palpitation. She denies any nausea. She is in sinus mechanism. She has some generalized discomfort. She is using her incentive spirometry and continues to be at this time on aspirin once a day, Lipitor 40 mg daily, Plavix 75 mg daily, and metoprolol tartrate 25 mg twice a day. PHYSICAL EXAMINATION: VITAL SIGNS: Blood pressure 107/56 with a heart in 70s. LUNGS: With mild decrease in breath sounds, no wheezes. HEART: Regular rate and rhythm, S1, S2. No S3 with systolic murmur. No diastolic murmur. ABDOMEN: Soft and nontender. EXTREMITIES: No edema. LAB DATA: BUN and creatinine of 9 and 0.54, potassium 4.0, hemoglobin 10.1. IMPRESSION: 1. Status post aortic valve replacement, stable. 2. History of hypertension. 3. History of hyperlipidemia. 4. Paroxysmal atrial fibrillation. Patient continues to be in sinus mechanism. RECOMMENDATION: From the cardiac standpoint, will continue present therapy. Follow her rhythm and depending on that, further recommendation will be made. In the past the patient was not anticoagulated because of the episodes of GI bleeding. MMODL / IJN: [id number] /
[2021-03-15] MEDS: IPRATROPIUM-ALBUTEROL 3 ML NEB INHALATION SCH ×4 (08:33→19:37)
--- NOTE | 2021-03-15 08:44 | P.PN ---
Subjective Progress Note Date: 03/15/21 Principal diagnosis: Severe aortic valve stenosis. Past medical history significant for hypertension, hyperlipidemia, fibromyalgia, lupus, rheumatoid arthritis, paroxysmal atrial tachycardia and fibrillation, GERD and memory impairment. POD #1 aortic valve replacement with a 23 mm Li Inspiris bioprosthetic aortic valve, clip ligation of the left atrial appendage with a 35 mm Atriclip, intraoperative transesophageal echocardiogram and removal of her left anterior chest wall loop recorder. The patient was seen in follow-up today 03/15/2021 at her bedside in the intens tran care unit. Currently she is sitting up to the bedside chair, is awake, alert and oriented 3 and is in no acute distress. She denies any complaints of shortness of breath at this time although was complaining of some surgical type pain to her chest tube insertion sites and with taking a deep breath. She was successfully extubated at 4:45 PM last evening and is currently on 2 L nasal cannula with oxygen saturations 97%. Achieving 500-750 mL on her incentive spirometry with much encouragement. Remained hemodynamically stable and currently is on no inotropic or pressor support. Right IJ Cordis with [place]-Omar catheter in place with current hemodynamic showing a cardiac output of 4.9, c ardiac index 2.6, PA pressures 26/8 and CVP 10 mmHg. Mediastinal and right pleural chest in place to low continuous wall suction -20 cm H2O. Draining thin serosanguineous drainage and no air leak is present. Objective - Vital Signs Vital signs: Vital Signs Temp 98.1 F 03/14/21 16:30 Pulse 76 03/15/21 07:00 Resp 12 03/15/21 07:00 BP 96/59 03/15/21 07:00 Pulse Ox 97 03/15/21 07:00 Intake & Output 03/14/21 03/15/21 03/15/21 18:59 06:59 18:59 Intake Total 712.784 317.903 78.369 Output Total 2965 1185 70 Balance -2252.216 -867.097 8.369 Weight 88.7 kg Intake: IV 205 162 23 cardiac output 100 120 20 pressure bag 54 42 3 Intake, IV Titration 507.784 155.903 55.369 Amount ACETAMINOPHEN IV (For NPO 100 ) 1,000 mg In Empty Bag 1 bag @ 400 mls/hr IVPB Q6HR DEAN Rx#:[id number] Clevidipine Butyrate 25 3 25.333 mg In Empty Bag 1 bag @ 1 MG/HR 2 mls/hr IV .Q24H DEAN Rx#:[id number] Dexmedetomidine/0.9% NaCl 11.297 56.414 50.908 (Pmx) 400 mcg In Empty Bag 1 bag @ Titrate IV . Q0M DEAN Rx#:[id number] Insulin Regular 100 unit 11.227 24.156 4.461 In Sodium Chloride 0.9% 100 ml @ Per Protocol IV .Q0M DEAN Rx#:[id number] Lactated Ringers 1,000 ml 300 50 @ 20 mls/hr IV .Q24H DEAN Rx#:[id number] ceFAZolin 2 gm In Sodium 50 Chloride 0.9% 50 ml @ 100 mls/hr IVPB Q8HR DEAN Rx# :[id number] propofoL 1,000 mg In 32.260 Empty Bag 1 bag @ Titrate IV .Q0M DEAN Rx#: [id number] Output: Chest Tube Drainage 140 185 40 mediastinal and right 140 185 40 pleural Urine 1625 1000 30 Estimated Blood Loss 1200 Other: Voiding Method Indwelling Catheter Indwelling Catheter ABP, PAP, CO, CI - Last Documented Arterial Blood Pressure 107/56 Pulmonary Artery Pressure 20/7 Cardiac Output 4.8 Cardiac Index 2.6 - Exam CONSTITUTIONAL: Sitting up to the bedside chair in the intensive care unit, appears comfortable, cooperative, no apparent acute distress. HEENT: Neck is supple, no JVD, no lymphadenopathy. Right IJ Cordis and [place]- Omar catheter in place and functioning. RESPIRATORY: Lungs sounds essentially clear throughout, diminished to his bilateral bases. Respirations are symmetrical and nonlabored. Currently on 2 L nasal cannula with oxygen saturations 97%. Able to achieve 500-750 mL on her incentive spirometry. Strong cough. CARDIOVASCULAR: Regular rhythm and rate. S1 and S2 present, negative for S3, gallop or murmur. Sternum is stable. Palpable peripheral pulses bilaterally, +1 edema to his bilateral lower extremities. No calf pain or tenderness noted. Heart hugger in place with patient demonstrating appropriate use. Knee-high SELENE hose and sequential compression devices in place to his bilateral lower extremities. GASTROINTESTINAL: Abdomen soft, nontender, nondistended. Hypoactive bowel sounds present 4 quadrants. Tolerating diet. No guarding or rigidity. GENITOURINARY: Pace present draining clear, yellow urine. Output 450 mL in the last 8 hours INTEGUMENTARY: Skin is warm and dry with no evidence of clubbing or cyanosis. Midline sternal incision clean dry and well approximated, covered with dry intact dressing. NEUROLOGIC: Cranial nerves II through XII intact. No focal deficits. MUSKULOSKELETAL: Able to move all extremities, strength equal bilaterally, generalized weakness. PSYCHIATRIC: Alert and oriented to person place and time, appropriate affect, intact judgment and insight. INVASIVE LINES AND TUBES: Mediastinal/right pleural chest tubes present and connected to low continuous wall suction -20 cm H2O, no air leaks present. Draining thin serosanguineous drainage with 85 mL output in the last 8 hours and 350 mL output since surgery. Atrial and ventricular epicardial pacemaker wires present, connected to a backup bedside pacemaker generator, VVI backup rate 50 bpm. Right internal jugular [place]/Cordis, right radial arterial line present. Last CO 4.9, CI 2.6, PA 26/8 and CVP 10 mmHg. - Labs CBC & Chem 7: 03/15/21 04:00 03/15/21 04:00 Labs: Abnormal Lab Results - Last 24 Hours (Table) 03/11/21 03/14/21 03/14/21 Range/Units 08:55 08:52 09:43 WBC (3.8-10.6) k/uL RBC (3.80-5.40) m/uL Hgb (11.4-16.0) gm/dL Hct (34.0-46.0) % Neutrophils # (1.3-7.7) k/uL Lymphocytes # (1.0-4.8) k/uL APTT (22.0-30.0) sec ABG pH 7.33 L (7.35-7.45) ABG pCO2 50 H (35-45) mmHg ABG pO2 281 H 267 H (83-108) mmHg ABG HCO3 27 H 27 H (21-25) mmol/L ABG Total CO2 28 H 28 H (19-24) mmol/L ABG O2 Saturation 100.0 H 100.0 H (94-97) % ABG Hematocrit 33 L (34.0-46.0) % ABG Potassium (3.4-4.5) mmol/L ABG Ionized Calcium (4.5-5.3) mg/dL ABG Glucose 105 H 118 H (75-99) mg/dL ABG Lactic Acid (0.5-1.6) mmol/L Hemoglobin 10.7 L (11.4-16.0) gm/dL Sodium (137-145) mmol/L Chloride (98-107) mmol/L Glucose (74-99) mg/dL POC Glucose (mg/dL) (75-99) mg/dL Calcium (8.4-10.2) mg/dL Magnesium (1.6-2.3) mg/dL AST (14-36) U/L Alkaline Phosphatase (38-126) U/L Total Protein (6.3-8.2) g/dL Albumin (3.5-5.0) g/dL Arterial Blood Potassium (3.4-4.5) mmol/L Arterial Blood Glucose 105 H 118 H (75-99) mg/dL Crossmatch See Detail 03/14/21 03/14/21 03/14/21 Range/Units 10:13 10:49 11:45 WBC (3.8-10.6) k/uL RBC (3.80-5.40) m/uL Hgb (11.4-16.0) gm/dL Hct (34.0-46.0) % Neutrophils # (1.3-7.7) k/uL Lymphocytes # (1.0-4.8) k/uL APTT (22.0-30.0) sec ABG pH (7.35-7.45) ABG pCO2 (35-45) mmHg ABG pO2 318 H 390 H 362 H (83-108) mmHg ABG HCO3 (21-25) mmol/L ABG Total CO2 27 H 27 H 26 H (19-24) mmol/L ABG O2 Saturation 100.0 H 100.0 H 100.0 H (94-97) % ABG Hematocrit 26 L 25 L 29 L (34.0-46.0) % ABG Potassium 5.0 H 5.1 H (3.4-4.5) mmol/L ABG Ionized Calcium 4.0 L 4.2 L (4.5-5.3) mg/dL ABG Glucose 126 H 144 H 136 H (75-99) mg/dL ABG Lactic Acid 1.9 H (0.5-1.6) mmol/L Hemoglobin 8.5 L 8.1 L 9.6 L (11.4-16.0) gm/dL Sodium (137-145) mmol/L Chloride (98-107) mmol/L Glucose (74-99) mg/dL POC Glucose (mg/dL) (75-99) mg/dL Calcium (8.4-10.2) mg/dL Magnesium (1.6-2.3) mg/dL AST (14-36) U/L Alkaline Phosphatase (38-126) U/L Total Protein (6.3-8.2) g/dL Albumin (3.5-5.0) g/dL Arterial Blood Potassium 5.0 H 5.1 H (3.4-4.5) mmol/L Arterial Blood Glucose 126 H 144 H 136 H (75-99) mg/dL Crossmatch 03/14/21 03/14/21 03/14/21 Range/Units 12:35 12:35 12:35 WBC (3.8-10.6) k/uL RBC 3.30 L (3.80-5.40) m/uL Hgb 10.4 L (11.4-16.0) gm/dL Hct 30.3 L (34.0-46.0) % Neutrophils # (1.3-7.7) k/uL Lymphocytes # (1.0-4.8) k/uL APTT 30.6 H (22.0-30.0) sec ABG pH (7.35-7.45) ABG pCO2 (35-45) mmHg ABG pO2 (83-108) mmHg ABG HCO3 (21-25) mmol/L ABG Total CO2 (19-24) mmol/L ABG O2 Saturation (94-97) % ABG Hematocrit (34.0-46.0) % ABG Potassium (3.4-4.5) mmol/L ABG Ionized Calcium (4.5-5.3) mg/dL ABG Glucose (75-99) mg/dL ABG Lactic Acid (0.5-1.6) mmol/L Hemoglobin (11.4-16.0) gm/dL Sodium (137-145) mmol/L Chloride (98-107) mmol/L Glucose (74-99) mg/dL POC Glucose (mg/dL) 139 H (75-99) mg/dL Calcium (8.4-10.2) mg/dL Magnesium (1.6-2.3) mg/dL AST (14-36) U/L Alkaline Phosphatase (38-126) U/L Total Protein (6.3-8.2) g/dL Albumin (3.5-5.0) g/dL Arterial Blood Potassium (3.4-4.5) mmol/L Arterial Blood Glucose (75-99) mg/dL Crossmatch 03/14/21 03/14/21 03/14/21 Range/Units 12:35 12:45 13:22 WBC (3.8-10.6) k/uL RBC (3.80-5.40) m/uL Hgb (11.4-16.0) gm/dL Hct (34.0-46.0) % Neutrophils # (1.3-7.7) k/uL Lymphocytes # (1.0-4.8) k/uL APTT (22.0-30.0) sec ABG pH (7.35-7.45) ABG pCO2 (35-45) mmHg ABG pO2 268 H (83-108) mmHg ABG HCO3 26 H (21-25) mmol/L ABG Total CO2 27 H (19-24) mmol/L ABG O2 Saturation 99.6 H (94-97) % ABG Hematocrit (34.0-46.0) % ABG Potassium (3.4-4.5) mmol/L ABG Ionized Calcium (4.5-5.3) mg/dL ABG Glucose (75-99) mg/dL ABG Lactic Acid (0.5-1.6) mmol/L Hemoglobin (11.4-16.0) gm/dL Sodium (137-145) mmol/L Chloride 108 H (98-107) mmol/L Glucose 130 H (74-99) mg/dL POC Glucose (mg/dL) 143 H (75-99) mg/dL Calcium (8.4-10.2) mg/dL Magnesium 2.8 H (1.6-2.3) mg/dL AST 58 H (14-36) U/L Alkaline Phosphatase 37 L (38-126) U/L Total Protein 4.4 L (6.3-8.2) g/dL Albumin 2.6 L (3.5-5.0) g/dL Arterial Blood Potassium (3.4-4.5) mmol/L Arterial Blood Glucose (75-99) mg/dL Crossmatch 03/14/21 03/14/21 03/14/21 Range/Units 14:21 15:06 15:27 WBC 13.4 H (3.8-10.6) k/uL RBC (3.80-5.40) m/uL Hgb (11.4-16.0) gm/dL Hct (34.0-46.0) % Neutrophils # 10.9 H (1.3-7.7) k/uL Lymphocytes # (1.0-4.8) k/uL APTT (22.0-30.0) sec ABG pH (7.35-7.45) ABG pCO2 (35-45) mmHg ABG pO2 (83-108) mmHg ABG HCO3 (21-25) mmol/L ABG Total CO2 (19-24) mmol/L ABG O2 Saturation (94-97) % ABG Hematocrit (34.0-46.0) % ABG Potassium (3.4-4.5) mmol/L ABG Ionized Calcium (4.5-5.3) mg/dL ABG Glucose (75-99) mg/dL ABG Lactic Acid (0.5-1.6) mmol/L Hemoglobin (11.4-16.0) gm/dL Sodium (137-145) mmol/L Chloride (98-107) mmol/L Glucose (74-99) mg/dL POC Glucose (mg/dL) 146 H 148 H (75-99) mg/dL Calcium (8.4-10.2) mg/dL Magnesium (1.6-2.3) mg/dL AST (14-36) U/L Alkaline Phosphatase (38-126) U/L Total Protein (6.3-8.2) g/dL Albumin (3.5-5.0) g/dL Arterial Blood Potassium (3.4-4.5) mmol/L Arterial Blood Glucose (75-99) mg/dL Crossmatch 03/14/21 03/14/21 03/14/21 Range/Units 16:18 16:31 17:04 WBC (3.8-10.6) k/uL RBC (3.80-5.40) m/uL Hgb (11.4-16.0) gm/dL Hct (34.0-46.0) % Neutrophils # (1.3-7.7) k/uL Lymphocytes # (1.0-4.8) k/uL APTT (22.0-30.0) sec ABG pH (7.35-7.45) ABG pCO2 47 H (35-45) mmHg ABG pO2 117 H (83-108) mmHg ABG HCO3 27 H (21-25) mmol/L ABG Total CO2 28 H (19-24) mmol/L ABG O2 Saturation 98.6 H (94-97) % ABG Hematocrit (34.0-46.0) % ABG Potassium (3.4-4.5) mmol/L ABG Ionized Calcium (4.5-5.3) mg/dL ABG Glucose (75-99) mg/dL ABG Lactic Acid (0.5-1.6) mmol/L Hemoglobin (11.4-16.0) gm/dL Sodium (137-145) mmol/L Chloride (98-107) mmol/L Glucose (74-99) mg/dL POC Glucose (mg/dL) 160 H 166 H (75-99) mg/dL Calcium (8.4-10.2) mg/dL Magnesium (1.6-2.3) mg/dL AST (14-36) U/L Alkaline Phosphatase (38-126) U/L Total Protein (6.3-8.2) g/dL Albumin (3.5-5.0) g/dL Arterial Blood Potassium (3.4-4.5) mmol/L Arterial Blood Glucose (75-99) mg/dL Crossmatch 03/14/21 03/14/21 03/14/21 Range/Units 18:03 18:55 18:56 WBC 11.0 H (3.8-10.6) k/uL RBC 3.73 L (3.80-5.40) m/uL Hgb (11.4-16.0) gm/dL Hct (34.0-46.0) % Neutrophils # 9.9 H (1.3-7.7) k/uL Lymphocytes # 0.7 L (1.0-4.8) k/uL APTT (22.0-30.0) sec ABG pH (7.35-7.45) ABG pCO2 (35-45) mmHg ABG pO2 (83-108) mmHg ABG HCO3 (21-25) mmol/L ABG Total CO2 (19-24) mmol/L ABG O2 Saturation (94-97) % ABG Hematocrit (34.0-46.0) % ABG Potassium (3.4-4.5) mmol/L ABG Ionized Calcium (4.5-5.3) mg/dL ABG Glucose (75-99) mg/dL ABG Lactic Acid (0.5-1.6) mmol/L Hemoglobin (11.4-16.0) gm/dL Sodium (137-145) mmol/L Chloride (98-107) mmol/L Glucose (74-99) mg/dL POC Glucose (mg/dL) 155 H 150 H (75-99) mg/dL Calcium (8.4-10.2) mg/dL Magnesium (1.6-2.3) mg/dL AST (14-36) U/L Alkaline Phosphatase (38-126) U/L Total Protein (6.3-8.2) g/dL Albumin (3.5-5.0) g/dL Arterial Blood Potassium (3.4-4.5) mmol/L Arterial Blood Glucose (75-99) mg/dL Crossmatch 03/14/21 03/14/21 03/14/21 Range/Units 19:55 21:01 22:57 WBC (3.8-10.6) k/uL RBC (3.80-5.40) m/uL Hgb (11.4-16.0) gm/dL Hct (34.0-46.0) % Neutrophils # (1.3-7.7) k/uL Lymphocytes # (1.0-4.8) k/uL APTT (22.0-30.0) sec ABG pH (7.35-7.45) ABG pCO2 (35-45) mmHg ABG pO2 (83-108) mmHg ABG HCO3 (21-25) mmol/L ABG Total CO2 (19-24) mmol/L ABG O2 Saturation (94-97) % ABG Hematocrit (34.0-46.0) % ABG Potassium (3.4-4.5) mmol/L ABG Ionized Calcium (4.5-5.3) mg/dL ABG Glucose (75-99) mg/dL ABG Lactic Acid (0.5-1.6) mmol/L Hemoglobin (11.4-16.0) gm/dL Sodium (137-145) mmol/L Chloride (98-107) mmol/L Glucose (74-99) mg/dL POC Glucose (mg/dL) 138 H 127 H 110 H (75-99) mg/dL Calcium (8.4-10.2) mg/dL Magnesium (1.6-2.3) mg/dL AST (14-36) U/L Alkaline Phosphatase (38-126) U/L Total Protein (6.3-8.2) g/dL Albumin (3.5-5.0) g/dL Arterial Blood Potassium (3.4-4.5) mmol/L Arterial Blood Glucose (75-99) mg/dL Crossmatch 03/15/21 03/15/21 03/15/21 Range/Units 00:13 01:13 02:55 WBC (3.8-10.6) k/uL RBC (3.80-5.40) m/uL Hgb (11.4-16.0) gm/dL Hct (34.0-46.0) % Neutrophils # (1.3-7.7) k/uL Lymphocytes # (1.0-4.8) k/uL APTT (22.0-30.0) sec ABG pH (7.35-7.45) ABG pCO2 (35-45) mmHg ABG pO2 (83-108) mmHg ABG HCO3 (21-25) mmol/L ABG Total CO2 (19-24) mmol/L ABG O2 Saturation (94-97) % ABG Hematocrit (34.0-46.0) % ABG Potassium (3.4-4.5) mmol/L ABG Ionized Calcium (4.5-5.3) mg/dL ABG Glucose (75-99) mg/dL ABG Lactic Acid (0.5-1.6) mmol/L Hemoglobin (11.4-16.0) gm/dL Sodium (137-145) mmol/L Chloride (98-107) mmol/L Glucose (74-99) mg/dL POC Glucose (mg/dL) 144 H 130 H 119 H (75-99) mg/dL Calcium (8.4-10.2) mg/dL Magnesium (1.6-2.3) mg/dL AST (14-36) U/L Alkaline Phosphatase (38-126) U/L Total Protein (6.3-8.2) g/dL Albumin (3.5-5.0) g/dL Arterial Blood Potassium (3.4-4.5) mmol/L Arterial Blood Glucose (75-99) mg/dL Crossmatch 03/15/21 03/15/21 03/15/21 Range/Units 04:00 04:00 04:01 WBC (3.8-10.6) k/uL RBC 3.25 L (3.80-5.40) m/uL Hgb 10.1 L (11.4-16.0) gm/dL Hct 29.7 L (34.0-46.0) % Neutrophils # (1.3-7.7) k/uL Lymphocytes # (1.0-4.8) k/uL APTT (22.0-30.0) sec ABG pH (7.35-7.45) ABG pCO2 (35-45) mmHg ABG pO2 (83-108) mmHg ABG HCO3 (21-25) mmol/L ABG Total CO2 (19-24) mmol/L ABG O2 Saturation (94-97) % ABG Hematocrit (34.0-46.0) % ABG Potassium (3.4-4.5) mmol/L ABG Ionized Calcium (4.5-5.3) mg/dL ABG Glucose (75-99) mg/dL ABG Lactic Acid (0.5-1.6) mmol/L Hemoglobin (11.4-16.0) gm/dL Sodium 133 L (137-145) mmol/L Chloride (98-107) mmol/L Glucose 105 H (74-99) mg/dL POC Glucose (mg/dL) 114 H (75-99) mg/dL Calcium 8.2 L (8.4-10.2) mg/dL Magnesium (1.6-2.3) mg/dL AST 41 H (14-36) U/L Alkaline Phosphatase (38-126) U/L Total Protein 4.8 L (6.3-8.2) g/dL Albumin 2.7 L (3.5-5.0) g/dL Arterial Blood Potassium (3.4-4.5) mmol/L Arterial Blood Glucose (75-99) mg/dL Crossmatch 03/15/21 03/15/21 03/15/21 Range/Units 05:21 07:07 07:47 WBC (3.8-10.6) k/uL RBC (3.80-5.40) m/uL Hgb (11.4-16.0) gm/dL Hct (34.0-46.0) % Neutrophils # (1.3-7.7) k/uL Lymphocytes # (1.0-4.8) k/uL APTT (22.0-30.0) sec ABG pH (7.35-7.45) ABG pCO2 (35-45) mmHg ABG pO2 (83-108) mmHg ABG HCO3 (21-25) mmol/L ABG Total CO2 (19-24) mmol/L ABG O2 Saturation (94-97) % ABG Hematocrit (34.0-46.0) % ABG Potassium (3.4-4.5) mmol/L ABG Ionized Calcium (4.5-5.3) mg/dL ABG Glucose (75-99) mg/dL ABG Lactic Acid (0.5-1.6) mmol/L Hemoglobin (11.4-16.0) gm/dL Sodium (137-145) mmol/L Chloride (98-107) mmol/L Glucose (74-99) mg/dL POC Glucose (mg/dL) 133 H 121 H 123 H (75-99) mg/dL Calcium (8.4-10.2) mg/dL Magnesium (1.6-2.3) mg/dL AST (14-36) U/L Alkaline Phosphatase (38-126) U/L Total Protein (6.3-8.2) g/dL Albumin (3.5-5.0) g/dL Arterial Blood Potassium (3.4-4.5) mmol/L Arterial Blood Glucose (75-99) mg/dL Crossmatch Assessment and Plan Assessment: 1. Severe aortic valve stenosis, status post aortic valve replacement with a 23 mm Li Inspiris bioprosthetic aortic valve 2. History of paroxysmal atrial tachycardia and fibrillation, status post clipping of her left atrial appendage and removal of loop recorder 3. Hypertension 4. Hyperlipidemia 5. Fibromyalgia 6. Lupus 7. Rheumatoid arthritis 8. GERD 9. Memory impairment 10. Lifetime nonsmoker Plan: 1. Continue aspirin, statin, zetia, Plavix, beta mo. Will increase her metoprolol titrate to 25 mg by mouth twice a day. 2. Encourage incentive spirometry 10 times every hour while awake. Bronchodilators per pulmonology management. 3. Increase activity, ambulate as tolerated. PT/OT/cardiac rehab consulted. 4. Will monitor daily labs and chest x-rays. Electrolyte replacement per protocol. No transfusion 5. GI/DVT prophylaxis. 6. Pain control with current medication regimen. 7. Insulin management per primary care service. Patient is not diabetic, hemoglobin A1c 5.7 %, although patient does need tight blood sugar control to prevent infection and promote sternal union. 8. Discontinue [place]. Connect Cordis to continueous CVP monitoring. 9. Continue mediastinal/right pleural chest tubes for another 24 hours 10. Continue Pace catheter for another 24 hours for strict accurate intake and output. Daily weights. 11. Home dose of folic acid and vitamin D2 restarted. 12. More recommendations to follow based on patient's clinical course. Time with Patient: Greater than 30
[2021-03-15] MEDS ORDERED: METOPROLOL TARTRATE 12.5 MG TAB PO SCH (09:00)
[2021-03-15] MEDS ORDERED: MAGNESIUM HYDROXIDE 2,400 MG/10 ML CUP PO PRN (09:00)
[2021-03-15] MEDS ORDERED: bisacodyL 10 MG SUPP RECTAL PRN (09:00)
[2021-03-15] MEDS: CLOPIDOGREL 75 MG TAB PO SCH (09:12)
[2021-03-15] MEDS: METOPROLOL TARTRATE 25 MG TAB PO SCH ×2 (09:12→21:11)
[2021-03-15] MEDS: FOLIC ACID 1 MG TAB PO SCH ×2 (09:12→21:11)
[2021-03-15] MEDS: ASPIRIN 325 MG TAB PO SCH (09:12)
[2021-03-15] MEDS: HEPARIN SODIUM,PORCINE/PF 5,000 UNIT/0.5 ML SYRINGE SQ SCH ×2 (09:12→17:22)
[2021-03-15] MEDS: ATORVASTATIN 40 MG TAB PO SCH (09:12)
[2021-03-15] MEDS: PANTOPRAZOLE 40 MG/10 ML VIAL IVP SCH (09:12)
[2021-03-15 09:25] LABS: Glucose,Whole Blood 131 mg/dL (75-99)
--- NOTE | 2021-03-15 10:37 | P.PN ---
Subjective Progress Note Date: 03/15/21 Principal diagnosis: Severe aortic valve stenosis This is a 61-year-old white female patient with past medical history severe aortic stenosis, hypertension, hyperlipidemia, fibromyalgia, paroxysmal atrial tachycardia and fibrillation, lupus, rheumatoid arthritis and dyslipidemia. Patient follows with Dr. Freed [facility]. Patient had a recent hospitalization for chest pain. Patient was undergoing outpatient evaluation with Dr. Cam jackson for possibility of aortic valve replacement. Recent cardiac catheterization showed 40% lesion in the mid LAD, a transesophageal echocardiogram showed severe aortic stenosis with a bicuspid valve with a mean gradient 56 mmHg. His chest x-ray from 02/19/2021 showed coarsened interstitium. And normal heart size. Patient outpatient PFT showed FEV1 of 1.9 L or 88% of predicted, FVC of 2.29 or 77% of predicted, consistent with mild restriction, MVV was 74.6. On 03/14/2021 patient underwent aortic valve replacement with a 23 mm bioprosthetic valve. Patient is seen in the postoperative period in the intensive care unit, on assist control mode of ventilation with a rate of 14, tidal volume is 400, FiO2 of 50% and PEEP of 10, sedated. Postoperative blood gas showed a pO2 of 268, pCO2 45, and pH of 7.36, and this was on the 100% FiO2 and FiO2 has since been dropped down to 50%, currently hemodynamically stable although requiring small amount of clot proximal for blood pressure control, at 2 mg per hour, Diprivan is a 40 mics per kilo per minute, insulin drip is at 2 units per hour, and lactated Ringer's at 50 ML per hour. In sinus mechanism with a rate of 70 BPM. PA pressure is 20/17, with CVP of 7, cardiac output is 3.8, and cardiac index is 2.0. One mediastinal and right pleural chest tube are Y-connected together, with small amount of serosanguineous output in the Pleur-evac, no evidence of air leak, postoperative chest x-ray shows satisfactory postoperative chest x-ray, no evident pneumothorax or pleural effusion, low lung volumes, minimal basilar atelectatic changes. Postoperative labs have been noted, white blood cell count is 13.4, hemoglobin is 12.4, no significant chest tube output, patient is producing in the order of 200-300 ML per hour. On 03/15/2021 patient seen in follow-up in the intensive care unit, she was successfully weaned and extubated from the mechanical ventilator last night at 1645, and patient was successfully weaned from the mechanical ventilator within 6 hours of or exit time which was 1223. She is currently awake and alert, oriented 3, breathing comfortably, she sits up in the chair, currently on 2 L of oxygen with a pulse ox of 96%, she is working on the incentive spirometer, she has been up out of bed this morning and ambulated out of for room in the unit, tolerated activity well, hemodynamically she is stable, not requiring any vasopressor support, she is in sinus mechanism with a rate of 90 BPM, she is currently on lactated Ringer's at 30 in all per hour, insulin drip is 2.5 units per hour. Her PA pressure is 20/6, CVP is 4, her cardiac output this morning is 5.9, and cardiac index is 3.2, she has one mediastinal and right pleural chest tube with small amount of serosanguineous output, no evidence of air leak, today's chest x-ray has been reviewed showing bibasilar opacities. Labs have been reviewed, white blood cell count is 8.1, hemoglobin is 10.1, sodium is 133, there is electrolyte and renal profile were unremarkable. Pace catheter is in place, and urine output is in the order of 20-50 ML per hour, chest tube output was 325 ML in the last 24 hours. Incisions are clean dry and intact. Objective - Vital Signs Vital signs: Vital Signs Temp 99.7 F H 03/15/21 08:00 Pulse 87 03/15/21 09:00 Resp 10 L 03/15/21 09:00 BP 96/59 03/15/21 07:00 Pulse Ox 96 03/15/21 09:00 Intake & Output 03/14/21 03/15/21 03/15/21 18:59 06:59 18:59 Intake Total 712.784 317.903 176.369 Output Total 2965 1185 245 Balance -2252.216 -867.097 -68.631 Weight 88.7 kg Intake: IV 205 162 121 Lactated Ringers 1,000 ml 80 @ 20 mls/hr IV .Q24H [facility] Rx#:[id number] cardiac output 100 120 20 pressure bag 54 42 21 Intake, IV Titration 507.784 155.903 55.369 Amount ACETAMINOPHEN IV (For NPO 100 ) 1,000 mg In Empty Bag 1 bag @ 400 mls/hr IVPB Q6HR [facility] Rx#:[id number] Clevidipine Butyrate 25 3 25.333 mg In Empty Bag 1 bag @ 1 MG/HR 2 mls/hr IV .Q24H [facility] Rx#:[id number] Dexmedetomidine/0.9% NaCl 11.297 56.414 50.908 (Pmx) 400 mcg In Empty Bag 1 bag @ Titrate IV . Q0M [facility] Rx#:[id number] Insulin Regular 100 unit 11.227 24.156 4.461 In Sodium Chloride 0.9% 100 ml @ Per Protocol IV .Q0M [facility] Rx#:[id number] Lactated Ringers 1,000 ml 300 50 @ 20 mls/hr IV .Q24H [facility] Rx#:[id number] ceFAZolin 2 gm In Sodium 50 Chloride 0.9% 50 ml @ 100 mls/hr IVPB Q8HR [facility] Rx# :[id number] propofoL 1,000 mg In 32.260 Empty Bag 1 bag @ Titrate IV .Q0M [facility] Rx#: [id number] Output: Chest Tube Drainage 140 185 90 mediastinal and right 140 185 90 pleural Urine 1625 1000 155 Estimated Blood Loss 1200 Other: Voiding Method Indwelling Catheter Indwelling Catheter Indwelling Catheter ABP, PAP, CO, CI - Last Documented Arterial Blood Pressure 92/64 Pulmonary Artery Pressure 18/6 Cardiac Output 4.9 Cardiac Index 2.6 - Exam GENERAL EXAM: Awake and alert and oriented 3, 61-year-old white [facility] in no apparent distress. HEAD: Normocephalic/atraumatic. EYES: Normal reaction of pupils, equal size. Conjunctiva pink, sclera white. NOSE: Clear with pink turbinates. THROAT: No erythema or exudates. NECK: No masses, no JVD, no thyroid enlargement, no adenopathy. CHEST: No chest wall deformity. Symmetrical expansion. Mediastinal chest tube clean dry and intact, 1 mediastinal and right pleural chest tube in place, connected together, small amount of sanguinous output in the Pleur-evac, co nnected to wall suction, epicardial wires connected to external pacemaker with backup mode, intrinsic rhythm is sinus rhythm LUNGS: Equal air entry with no crackles, wheeze, rhonchi or dullness. CVS: Regular rate and rhythm, normal S1 and S2, no gallops, no murmurs, no rubs ABDOMEN: Soft, nontender. No hepatosplenomegaly, normal bowel sounds, no guarding or rigidity. EXTREMITIES: No clubbing, no edema, no cyanosis, 2+ pulses and upper and lower extremities. MUSCULOSKELETAL: Muscle strength and tone normal. SPINE: No scoliosis or deformity SKIN: No rashes CENTRAL NERVOUS SYSTEM: Awake and alert, oriented 3 No focal deficits, tone is normal in all 4 extremities. - Labs CBC & Chem 7: 03/15/21 04:00 03/15/21 04:00 Labs: Abnormal Lab Results - Last 24 Hours (Table) 03/11/21 03/14/21 03/14/21 Range/Units 08:55 08:52 09:43 WBC (3.8-10.6) k/uL RBC (3.80-5.40) m/uL Hgb (11.4-16.0) gm/dL Hct (34.0-46.0) % Neutrophils # (1.3-7.7) k/uL Lymphocytes # (1.0-4.8) k/uL APTT (22.0-30.0) sec ABG pH 7.33 L (7.35-7.45) ABG pCO2 50 H (35-45) mmHg ABG pO2 281 H 267 H (83-108) mmHg ABG HCO3 27 H 27 H (21-25) mmol/L ABG Total CO2 28 H 28 H (19-24) mmol/L ABG O2 Saturation 100.0 H 100.0 H (94-97) % ABG Hematocrit 33 L (34.0-46.0) % ABG Potassium (3.4-4.5) mmol/L ABG Ionized Calcium (4.5-5.3) mg/dL ABG Glucose 105 H 118 H (75-99) mg/dL ABG Lactic Acid (0.5-1.6) mmol/L Hemoglobin 10.7 L (11.4-16.0) gm/dL Sodium (137-145) mmol/L Chloride (98-107) mmol/L Glucose (74-99) mg/dL POC Glucose (mg/dL) (75-99) mg/dL Calcium (8.4-10.2) mg/dL Magnesium (1.6-2.3) mg/dL AST (14-36) U/L Alkaline Phosphatase (38-126) U/L Total Protein (6.3-8.2) g/dL Albumin (3.5-5.0) g/dL Arterial Blood Potassium (3.4-4.5) mmol/L Arterial Blood Glucose 105 H 118 H (75-99) mg/dL Crossmatch See Detail 03/14/21 03/14/21 03/14/21 Range/Units 10:13 10:49 11:45 WBC (3.8-10.6) k/uL RBC (3.80-5.40) m/uL Hgb (11.4-16.0) gm/dL Hct (34.0-46.0) % Neutrophils # (1.3-7.7) k/uL Lymphocytes # (1.0-4.8) k/uL APTT (22.0-30.0) sec ABG pH (7.35-7.45) ABG pCO2 (35-45) mmHg ABG pO2 318 H 390 H 362 H (83-108) mmHg ABG HCO3 (21-25) mmol/L ABG Total CO2 27 H 27 H 26 H (19-24) mmol/L ABG O2 Saturation 100.0 H 100.0 H 100.0 H (94-97) % ABG Hematocrit 26 L 25 L 29 L (34.0-46.0) % ABG Potassium 5.0 H 5.1 H (3.4-4.5) mmol/L ABG Ionized Calcium 4.0 L 4.2 L (4.5-5.3) mg/dL ABG Glucose 126 H 144 H 136 H (75-99) mg/dL ABG Lactic Acid 1.9 H (0.5-1.6) mmol/L Hemoglobin 8.5 L 8.1 L 9.6 L (11.4-16.0) gm/dL Sodium (137-145) mmol/L Chloride (98-107) mmol/L Glucose (74-99) mg/dL POC Glucose (mg/dL) (75-99) mg/dL Calcium (8.4-10.2) mg/dL Magnesium (1.6-2.3) mg/dL AST (14-36) U/L Alkaline Phosphatase (38-126) U/L Total Protein (6.3-8.2) g/dL Albumin (3.5-5.0) g/dL Arterial Blood Potassium 5.0 H 5.1 H (3.4-4.5) mmol/L Arterial Blood Glucose 126 H 144 H 136 H (75-99) mg/dL Crossmatch 03/14/21 03/14/21 03/14/21 Range/Units 12:35 12:35 12:35 WBC (3.8-10.6) k/uL RBC 3.30 L (3.80-5.40) m/uL Hgb 10.4 L (11.4-16.0) gm/dL Hct 30.3 L (34.0-46.0) % Neutrophils # (1.3-7.7) k/uL Lymphocytes # (1.0-4.8) k/uL APTT 30.6 H (22.0-30.0) sec ABG pH (7.35-7.45) ABG pCO2 (35-45) mmHg ABG pO2 (83-108) mmHg ABG HCO3 (21-25) mmol/L ABG Total CO2 (19-24) mmol/L ABG O2 Saturation (94-97) % ABG Hematocrit (34.0-46.0) % ABG Potassium (3.4-4.5) mmol/L ABG Ionized Calcium (4.5-5.3) mg/dL ABG Glucose (75-99) mg/dL ABG Lactic Acid (0.5-1.6) mmol/L Hemoglobin (11.4-16.0) gm/dL Sodium (137-145) mmol/L Chloride (98-107) mmol/L Glucose (74-99) mg/dL POC Glucose (mg/dL) 139 H (75-99) mg/dL Calcium (8.4-10.2) mg/dL Magnesium (1.6-2.3) mg/dL AST (14-36) U/L Alkaline Phosphatase (38-126) U/L Total Protein (6.3-8.2) g/dL Albumin (3.5-5.0) g/dL Arterial Blood Potassium (3.4-4.5) mmol/L Arterial Blood Glucose (75-99) mg/dL Crossmatch 03/14/21 03/14/21 03/14/21 Range/Units 12:35 12:45 13:22 WBC (3.8-10.6) k/uL RBC (3.80-5.40) m/uL Hgb (11.4-16.0) gm/dL Hct (34.0-46.0) % Neutrophils # (1.3-7.7) k/uL Lymphocytes # (1.0-4.8) k/uL APTT (22.0-30.0) sec ABG pH (7.35-7.45) ABG pCO2 (35-45) mmHg ABG pO2 268 H (83-108) mmHg ABG HCO3 26 H (21-25) mmol/L ABG Total CO2 27 H (19-24) mmol/L ABG O2 Saturation 99.6 H (94-97) % ABG Hematocrit (34.0-46.0) % ABG Potassium (3.4-4.5) mmol/L ABG Ionized Calcium (4.5-5.3) mg/dL ABG Glucose (75-99) mg/dL ABG Lactic Acid (0.5-1.6) mmol/L Hemoglobin (11.4-16.0) gm/dL Sodium (137-145) mmol/L Chloride 108 H (98-107) mmol/L Glucose 130 H (74-99) mg/dL POC Glucose (mg/dL) 143 H (75-99) mg/dL Calcium (8.4-10.2) mg/dL Magnesium 2.8 H (1.6-2.3) mg/dL AST 58 H (14-36) U/L Alkaline Phosphatase 37 L (38-126) U/L Total Protein 4.4 L (6.3-8.2) g/dL Albumin 2.6 L (3.5-5.0) g/dL Arterial Blood Potassium (3.4-4.5) mmol/L Arterial Blood Glucose (75-99) mg/dL Crossmatch 03/14/21 03/14/21 03/14/21 Range/Units 14:21 15:06 15:27 WBC 13.4 H (3.8-10.6) k/uL RBC (3.80-5.40) m/uL Hgb (11.4-16.0) gm/dL Hct (34.0-46.0) % Neutrophils # 10.9 H (1.3-7.7) k/uL Lymphocytes # (1.0-4.8) k/uL APTT (22.0-30.0) sec ABG pH (7.35-7.45) ABG pCO2 (35-45) mmHg ABG pO2 (83-108) mmHg ABG HCO3 (21-25) mmol/L ABG Total CO2 (19-24) mmol/L ABG O2 Saturation (94-97) % ABG Hematocrit (34.0-46.0) % ABG Potassium (3.4-4.5) mmol/L ABG Ionized Calcium (4.5-5.3) mg/dL ABG Glucose (75-99) mg/dL ABG Lactic Acid (0.5-1.6) mmol/L Hemoglobin (11.4-16.0) gm/dL Sodium (137-145) mmol/L Chloride (98-107) mmol/L Glucose (74-99) mg/dL POC Glucose (mg/dL) 146 H 148 H (75-99) mg/dL Calcium (8.4-10.2) mg/dL Magnesium (1.6-2.3) mg/dL AST (14-36) U/L Alkaline Phosphatase (38-126) U/L Total Protein (6.3-8.2) g/dL Albumin (3.5-5.0) g/dL Arterial Blood Potassium (3.4-4.5) mmol/L Arterial Blood Glucose (75-99) mg/dL Crossmatch 03/14/21 03/14/21 03/14/21 Range/Units 16:18 16:31 17:04 WBC (3.8-10.6) k/uL RBC (3.80-5.40) m/uL Hgb (11.4-16.0) gm/dL Hct (34.0-46.0) % Neutrophils # (1.3-7.7) k/uL Lymphocytes # (1.0-4.8) k/uL APTT (22.0-30.0) sec ABG pH (7.35-7.45) ABG pCO2 47 H (35-45) mmHg ABG pO2 117 H (83-108) mmHg ABG HCO3 27 H (21-25) mmol/L ABG Total CO2 28 H (19-24) mmol/L ABG O2 Saturation 98.6 H (94-97) % ABG Hematocrit (34.0-46.0) % ABG Potassium (3.4-4.5) mmol/L ABG Ionized Calcium (4.5-5.3) mg/dL ABG Glucose (75-99) mg/dL ABG Lactic Acid (0.5-1.6) mmol/L Hemoglobin (11.4-16.0) gm/dL Sodium (137-145) mmol/L Chloride (98-107) mmol/L Glucose (74-99) mg/dL POC Glucose (mg/dL) 160 H 166 H (75-99) mg/dL Calcium (8.4-10.2) mg/dL Magnesium (1.6-2.3) mg/dL AST (14-36) U/L Alkaline Phosphatase (38-126) U/L Total Protein (6.3-8.2) g/dL Albumin (3.5-5.0) g/dL Arterial Blood Potassium (3.4-4.5) mmol/L Arterial Blood Glucose (75-99) mg/dL Crossmatch 03/14/21 03/14/21 03/14/21 Range/Units 18:03 18:55 18:56 WBC 11.0 H (3.8-10.6) k/uL RBC 3.73 L (3.80-5.40) m/uL Hgb (11.4-16.0) gm/dL Hct (34.0-46.0) % Neutrophils # 9.9 H (1.3-7.7) k/uL Lymphocytes # 0.7 L (1.0-4.8) k/uL APTT (22.0-30.0) sec ABG pH (7.35-7.45) ABG pCO2 (35-45) mmHg ABG pO2 (83-108) mmHg ABG HCO3 (21-25) mmol/L ABG Total CO2 (19-24) mmol/L ABG O2 Saturation (94-97) % ABG Hematocrit (34.0-46.0) % ABG Potassium (3.4-4.5) mmol/L ABG Ionized Calcium (4.5-5.3) mg/dL ABG Glucose (75-99) mg/dL ABG Lactic Acid (0.5-1.6) mmol/L Hemoglobin (11.4-16.0) gm/dL Sodium (137-145) mmol/L Chloride (98-107) mmol/L Glucose (74-99) mg/dL POC Glucose (mg/dL) 155 H 150 H (75-99) mg/dL Calcium (8.4-10.2) mg/dL Magnesium (1.6-2.3) mg/dL AST (14-36) U/L Alkaline Phosphatase (38-126) U/L Total Protein (6.3-8.2) g/dL Albumin (3.5-5.0) g/dL Arterial Blood Potassium (3.4-4.5) mmol/L Arterial Blood Glucose (75-99) mg/dL Crossmatch 03/14/21 03/14/21 03/14/21 Range/Units 19:55 21:01 22:57 WBC (3.8-10.6) k/uL RBC (3.80-5.40) m/uL Hgb (11.4-16.0) gm/dL Hct (34.0-46.0) % Neutrophils # (1.3-7.7) k/uL Lymphocytes # (1.0-4.8) k/uL APTT (22.0-30.0) sec ABG pH (7.35-7.45) ABG pCO2 (35-45) mmHg ABG pO2 (83-108) mmHg ABG HCO3 (21-25) mmol/L ABG Total CO2 (19-24) mmol/L ABG O2 Saturation (94-97) % ABG Hematocrit (34.0-46.0) % ABG Potassium (3.4-4.5) mmol/L ABG Ionized Calcium (4.5-5.3) mg/dL ABG Glucose (75-99) mg/dL ABG Lactic Acid (0.5-1.6) mmol/L Hemoglobin (11.4-16.0) gm/dL Sodium (137-145) mmol/L Chloride (98-107) mmol/L Glucose (74-99) mg/dL POC Glucose (mg/dL) 138 H 127 H 110 H (75-99) mg/dL Calcium (8.4-10.2) mg/dL Magnesium (1.6-2.3) mg/dL AST (14-36) U/L Alkaline Phosphatase (38-126) U/L Total Protein (6.3-8.2) g/dL Albumin (3.5-5.0) g/dL Arterial Blood Potassium (3.4-4.5) mmol/L Arterial Blood Glucose (75-99) mg/dL Crossmatch 03/15/21 03/15/21 03/15/21 Range/Units 00:13 01:13 02:55 WBC (3.8-10.6) k/uL RBC (3.80-5.40) m/uL Hgb (11.4-16.0) gm/dL Hct (34.0-46.0) % Neutrophils # (1.3-7.7) k/uL Lymphocytes # (1.0-4.8) k/uL APTT (22.0-30.0) sec ABG pH (7.35-7.45) ABG pCO2 (35-45) mmHg ABG pO2 (83-108) mmHg ABG HCO3 (21-25) mmol/L ABG Total CO2 (19-24) mmol/L ABG O2 Saturation (94-97) % ABG Hematocrit (34.0-46.0) % ABG Potassium (3.4-4.5) mmol/L ABG Ionized Calcium (4.5-5.3) mg/dL ABG Glucose (75-99) mg/dL ABG Lactic Acid (0.5-1.6) mmol/L Hemoglobin (11.4-16.0) gm/dL Sodium (137-145) mmol/L Chloride (98-107) mmol/L Glucose (74-99) mg/dL POC Glucose (mg/dL) 144 H 130 H 119 H (75-99) mg/dL Calcium (8.4-10.2) mg/dL Magnesium (1.6-2.3) mg/dL AST (14-36) U/L Alkaline Phosphatase (38-126) U/L Total Protein (6.3-8.2) g/dL Albumin (3.5-5.0) g/dL Arterial Blood Potassium (3.4-4.5) mmol/L Arterial Blood Glucose (75-99) mg/dL Crossmatch 03/15/21 03/15/21 03/15/21 Range/Units 04:00 04:00 04:01 WBC (3.8-10.6) k/uL RBC 3.25 L (3.80-5.40) m/uL Hgb 10.1 L (11.4-16.0) gm/dL Hct 29.7 L (34.0-46.0) % Neutrophils # (1.3-7.7) k/uL Lymphocytes # (1.0-4.8) k/uL APTT (22.0-30.0) sec ABG pH (7.35-7.45) ABG pCO2 (35-45) mmHg ABG pO2 (83-108) mmHg ABG HCO3 (21-25) mmol/L ABG Total CO2 (19-24) mmol/L ABG O2 Saturation (94-97) % ABG Hematocrit (34.0-46.0) % ABG Potassium (3.4-4.5) mmol/L ABG Ionized Calcium (4.5-5.3) mg/dL ABG Glucose (75-99) mg/dL ABG Lactic Acid (0.5-1.6) mmol/L Hemoglobin (11.4-16.0) gm/dL Sodium 133 L (137-145) mmol/L Chloride (98-107) mmol/L Glucose 105 H (74-99) mg/dL POC Glucose (mg/dL) 114 H (75-99) mg/dL Calcium 8.2 L (8.4-10.2) mg/dL Magnesium (1.6-2.3) mg/dL AST 41 H (14-36) U/L Alkaline Phosphatase (38-126) U/L Total Protein 4.8 L (6.3-8.2) g/dL Albumin 2.7 L (3.5-5.0) g/dL Arterial Blood Potassium (3.4-4.5) mmol/L Arterial Blood Glucose (75-99) mg/dL Crossmatch 03/15/21 03/15/21 03/15/21 Range/Units 05:21 07:07 07:47 WBC (3.8-10.6) k/uL RBC (3.80-5.40) m/uL Hgb (11.4-16.0) gm/dL Hct (34.0-46.0) % Neutrophils # (1.3-7.7) k/uL Lymphocytes # (1.0-4.8) k/uL APTT (22.0-30.0) sec ABG pH (7.35-7.45) ABG pCO2 (35-45) mmHg ABG pO2 (83-108) mmHg ABG HCO3 (21-25) mmol/L ABG Total CO2 (19-24) mmol/L ABG O2 Saturation (94-97) % ABG Hematocrit (34.0-46.0) % ABG Potassium (3.4-4.5) mmol/L ABG Ionized Calcium (4.5-5.3) mg/dL ABG Glucose (75-99) mg/dL ABG Lactic Acid (0.5-1.6) mmol/L Hemoglobin (11.4-16.0) gm/dL Sodium (137-145) mmol/L Chloride (98-107) mmol/L Glucose (74-99) mg/dL POC Glucose (mg/dL) 133 H 121 H 123 H (75-99) mg/dL Calcium (8.4-10.2) mg/dL Magnesium (1.6-2.3) mg/dL AST (14-36) U/L Alkaline Phosphatase (38-126) U/L Total Protein (6.3-8.2) g/dL Albumin (3.5-5.0) g/dL Arterial Blood Potassium (3.4-4.5) mmol/L Arterial Blood Glucose (75-99) mg/dL Crossmatch 03/15/21 Range/Units 09:23 WBC (3.8-10.6) k/uL RBC (3.80-5.40) m/uL Hgb (11.4-16.0) gm/dL Hct (34.0-46.0) % Neutrophils # (1.3-7.7) k/uL Lymphocytes # (1.0-4.8) k/uL APTT (22.0-30.0) sec ABG pH (7.35-7.45) ABG pCO2 (35-45) mmHg ABG pO2 (83-108) mmHg ABG HCO3 (21-25) mmol/L ABG Total CO2 (19-24) mmol/L ABG O2 Saturation (94-97) % ABG Hematocrit (34.0-46.0) % ABG Potassium (3.4-4.5) mmol/L ABG Ionized Calcium (4.5-5.3) mg/dL ABG Glucose (75-99) mg/dL ABG Lactic Acid (0.5-1.6) mmol/L Hemoglobin (11.4-16.0) gm/dL Sodium (137-145) mmol/L Chloride (98-107) mmol/L Glucose (74-99) mg/dL POC Glucose (mg/dL) 131 H (75-99) mg/dL Calcium (8.4-10.2) mg/dL Magnesium (1.6-2.3) mg/dL AST (14-36) U/L Alkaline Phosphatase (38-126) U/L Total Protein (6.3-8.2) g/dL Albumin (3.5-5.0) g/dL Arterial Blood Potassium (3.4-4.5) mmol/L Arterial Blood Glucose (75-99) mg/dL Crossmatch Assessment and Plan Plan: Assessment: #1. Severe aortic stenosis, status post aortic valve replacement, on 03/14/2021, postoperative day #1 #2. Routine ventilator management, patient successfully weaned and extubated within 6 hours of OR exit time on 03/14/2021 #3. History of bicuspid aortic stenosis #4. Hypertension #5. Fibromyalgia #6. History of ulcerative colitis #7. Lupus #8. Paroxysmal atrial tachycardia and fibrillation Plan: Patient is doing well, Tolerating extubation quite well so far Encouraging deep breathing and coughing, incentive spirometry use Todays chest x-ray has been reviewed Hemodynamic patient is stable In sinus mechanism not requiring any vasopressor support Tolerating ambulation GI and DVT prophylaxis We'll continue to follow I performed a history & physical examination of the patient and discussed their management with my nurse practitioner, Stephania Ying. I reviewed the nurse practitioner's note and agree with the documented findings and plan of care. Lung sounds are positive for diminished breath sounds throughout the lung beach. The findings and the impression was discussed with the patient. I a ttest to the documentation by the nurse practitioner. Time with Patient: Less than 30
[2021-03-15 11:01] LABS: Glucose,Whole Blood 117 mg/dL (75-99)
[2021-03-15] MEDS: LACTATED RINGERS 1,000 ML IV SCH (11:16)
[2021-03-15] MEDS: MUPIROCIN 2% OINT 22 GM TUBE NASAL SCH ×2 (12:23→21:11)
[2021-03-15] MEDS: EZETIMIBE 10 MG TAB PO SCH (12:25)
[2021-03-15 12:36] VITALS: BMI 35.7
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
[2021-03-15 13:09] LABS: Glucose,Whole Blood 109 mg/dL (75-99)
[2021-03-15 14:04] LABS: Glucose,Whole Blood 148 mg/dL (75-99)
[2021-03-15 17:07] LABS: Glucose,Whole Blood 115 mg/dL (75-99)
[2021-03-15 18:11] LABS: Glucose,Whole Blood 196 mg/dL (75-99)
[2021-03-15 19:07] LABS: Glucose,Whole Blood 225 mg/dL (75-99)
[2021-03-15 20:22] LABS: Glucose,Whole Blood 138 mg/dL (75-99)
[2021-03-15] MEDS: SENNOSIDES-DOCUSATE SODIUM 1 EACH TAB PO SCH (21:10)
[2021-03-15 21:19] LABS: Glucose,Whole Blood 124 mg/dL (75-99)
[2021-03-15 23:10] LABS: Glucose,Whole Blood 119 mg/dL (75-99)
[2021-03-16] MEDS: HEPARIN SODIUM,PORCINE/PF 5,000 UNIT/0.5 ML SYRINGE SQ SCH ×4 (00:04→23:10)
[2021-03-16 00:19] LABS: Glucose,Whole Blood 120 mg/dL (75-99)
[2021-03-16] MEDS: HYDROcodone/APAP 5-325MG 1 EACH TAB PO PRN ×3 (00:32→08:37)
[2021-03-16 02:05] LABS: Glucose,Whole Blood 128 mg/dL (75-99)
[2021-03-16] MEDS: INSULIN REGULAR 100 UNIT in SODIUM CHLORIDE 0.9% 100 ML IV SCH (02:08)
[2021-03-16 04:05] LABS: Glucose,Whole Blood 69 mg/dL (75-99)
[2021-03-16 04:23] LABS: Basophils % (A) 0 %; Eosinophils # (A) 0.1 k/uL (0-0.7); Eosinophils % (A) 1 %; HCT 30.1 % (34.0-46.0); HGB 10.2 gm/dL (11.4-16.0); Lymphocytes # (A) 2.3 k/uL (1.0-4.8); Lymphocytes % (A) 18 %; MCH 31.3 pg (25.0-35.0); MCHC 33.9 g/dL (31.0-37.0); MCV 92.5 fL (80.0-100.0); Mean Platelet Volume 7.8; Monocytes # (A) 0.6 k/uL (0-1.0); Monocytes % (A) 5 %; Neutrophils # (A) 9.4 k/uL (1.3-7.7); Neutrophils % (A) 75 %; Platelet Count 195 k/uL (150-450); RBC 3.26 m/uL (3.80-5.40); RDW 13.1 % (11.5-15.5); WBC 12.6 k/uL (3.8-10.6)
[2021-03-16 04:34] LABS: Ionized Calcium 4.9 mg/dL (4.5-5.3)
[2021-03-16 04:43] LABS: ALT 20 U/L (4-34); AST 45 U/L (14-36); African American GFR (CKD) >90 (>60 ml/min/1.73 sqM); Alkaline Phosphatase 57 U/L (38-126); Anion Gap 3 mmol/L; Blood Urea Nitrogen 11 mg/dL (7-17); Calcium 8.3 mg/dL (8.4-10.2); Carbon Dioxide 30 mmol/L (22-30); Chloride 101 mmol/L (98-107); Glucose 105 mg/dL (74-99); Non-African American GFR(CKD) >90 (>60 ml/min/1.73 sqM); Potassium 4.1 mmol/L (3.5-5.1); Sodium 134 mmol/L (137-145); Total Bilirubin 0.5 mg/dL (0.2-1.3); Total Protein 5.3 g/dL (6.3-8.2)
[2021-03-16 04:45] LABS: Glucose,Whole Blood 102 mg/dL (75-99)
[2021-03-16 06:14] LABS: Glucose,Whole Blood 129 mg/dL (75-99)
[2021-03-16 07:28] LABS: Glucose,Whole Blood 114 mg/dL (75-99)
--- NOTE | 2021-03-16 07:37 | XR ---
EXAMINATION TYPE: XR chest 1V portable DATE OF EXAM: 03/16/2021 COMPARISON: 03/15/2021 HISTORY: 61 years Female. STUDY INDICATION GIVEN: Postoperative cardiac surgery TECHNIQUE: AP portable chest radiograph FINDINGS AND IMPRESSION: Right thoracostomy tube tip projecting over the right hemithorax stable in position. [place] catheter not seen on this study. A catheter or mediastinal drain courses from inferiorly projecting over the middle mediastinum stabl e. Postsurgical changes in the mediastinum unchanged. Bibasilar left greater than right opacities again demonstrated with no significant change, could be o n the basis of atelectasis/edema/pneumonia. Enlarged cardiac silhouette stable. New small left pleural effusion. No pleural effusion on the right. No pneumothorax. Stable osseous structures
[2021-03-16] MEDS: PANTOPRAZOLE 40 MG/10 ML VIAL IVP SCH (08:36)
[2021-03-16] MEDS: FOLIC ACID 1 MG TAB PO SCH ×2 (08:37→21:03)
[2021-03-16] MEDS: CLOPIDOGREL 75 MG TAB PO SCH (08:38)
[2021-03-16] MEDS: METOPROLOL TARTRATE 25 MG TAB PO SCH ×2 (08:38→21:03)
[2021-03-16] MEDS: ASPIRIN 325 MG TAB PO SCH (08:38)
[2021-03-16] MEDS: ATORVASTATIN 40 MG TAB PO SCH (08:38)
[2021-03-16] MEDS: MUPIROCIN 2% OINT 22 GM TUBE NASAL SCH ×2 (08:39→21:20)
[2021-03-16] MEDS: LACTATED RINGERS 1,000 ML IV SCH (08:39)
[2021-03-16] MEDS: IPRATROPIUM-ALBUTEROL 3 ML NEB INHALATION SCH ×4 (08:48→20:45)
[2021-03-16] MEDS ORDERED: ACETAMINOPHEN TAB 325 MG TAB PO PRN (09:25)
[2021-03-16] MEDS ORDERED: FUROSEMIDE 10 MG/ML 4 ML VIAL IV STA (09:31)
--- NOTE | 2021-03-16 09:36 | P.PN ---
Subjective Progress Note Date: 03/16/21 Principal diagnosis: Severe aortic valve stenosis. Past medical history significant for hypertension, hyperlipidemia, fibromyalgia, lupus, rheumatoid arthritis, paroxysmal atrial tachycardia and fibrillation, GERD and memory impairment. POD #2 aortic valve replacement with a 23 mm Li Inspiris bioprosthetic aortic valve, clip ligation of the left atrial appendage with a 35 mm Atriclip, intraoperative transesophageal echocardiogram and removal of her left anterior chest wall loop recorder. Postoperative acute blood loss anemia, expected given hemodilution and cardiopu lmonary bypass. The patient was seen in follow-up today 03/16/2021 at her bedside in the intensive care unit. Currently she is sitting up to the bedside chair, is awake, alert and oriented 3 and is in no acute distress. She is complaining of some pain to her right pleural chest tube insertion site and to her right shoulder area, denies any complaints of shortness of breath. Bedside telemetry showing normal sinus rhythm heart rate 83 BPM. Right IJ cordis remains in place with current CVP pressure 11 mmHg. She remains hemodynamically stable and is currently on no inotropic or pressor support. Oxygen saturations are 98% on room air and she is achieving 750-1000 mL on her incentive spirometry with encouragement. She reports she was up ambulating in the intensive care unit hallway yesterday with assistance from nursing staff and physical therapy staff. Mediastinal and right pleural chest tubes remain in place to low continuous wall suction -20 cm H2O. No air leak is present. Draining thin serosanguineous drainage. Objective - Vital Signs Vital signs: Vital Signs Temp 98.2 F 03/16/21 04:00 Pulse 80 03/16/21 07:00 Resp 21 03/16/21 07:00 BP 134/71 03/16/21 07:00 Pulse Ox 98 03/16/21 07:00 Intake & Output 03/15/21 03/16/21 03/16/21 18:59 06:59 18:59 Intake Total 448.625 58.659 Output Total 860 530 Balance -411.375 -471.341 Weight 88.7 kg 89.1 kg Intake: IV 375 36 Lactated Ringers 1,000 ml 280 @ 20 mls/hr IV .Q24H [facility] [place] Rx#:[id number] cardiac output 20 pressure bag 75 36 Intake, IV Titration 73.625 22.659 Amount Dexmedetomidine/0.9% NaCl 50.908 (Pmx) 400 mcg In Empty Bag 1 bag @ Titrate IV . Q0M [facility] [place] Rx#:[id number] Insulin Regular 100 unit 22.717 22.659 In Sodium Chloride 0.9% 100 ml @ Per Protocol IV .Q0M [facility] Rx#:[id number] Output: Chest Tube Drainage 190 60 mediastinal and right 190 60 pleural Urine 670 470 Other: Voiding Method Indwelling Catheter Indwelling Catheter ABP, PAP, CO, CI - Last Documented Arterial Blood Pressure 133/60 Pulmonary Artery Pressure 23/9 Cardiac Output 4.9 Cardiac Index 2.6 - Exam CONSTITUTIONAL: Sitting up to the bedside chair in the intensive care unit, appears comfortable, cooperative, no apparent acute distress. HEENT: Neck is supple, no JVD, no lymphadenopathy. Right IJ Cordis in place and functioning. RESPIRATORY: Lungs sounds essentially clear throughout, diminished to her bilateral bases. Respirations are symmetrical and nonlabored. Currently on room air with oxygen saturations 98%. Able to achieve 750-1000 mL on her incentive spirometry. Strong cough. CARDIOVASCULAR: Regular rhythm and rate. S1 and S2 present, negative for S3, gallop or murmur. Sternum is stable. Palpable peripheral pulses bilaterally, +1 edema to his bilateral lower extremities. No calf pain or tenderness noted. Heart hugger in place with patient demonstrating appropriate use. Knee-high SELENE hose and sequential compression devices in place to her bilateral lower extremities. GASTROINTESTINAL: Abdomen soft, nontender, nondistended. Active bowel sounds present 4 quadrants. Tolerating diet. No guarding or rigidity. GENITOURINARY: Pace present draining clear, yellow urine. Output 270 mL in the last 8 hours INTEGUMENTARY: Skin is warm and dry with no evidence of clubbing or cyanosis. Midline sternal incision clean dry and well approximated, covered with dry intact dressing. NEUROLOGIC: Cranial nerves II through XII intact. No focal deficits. MUSKULOSKELETAL: Able to move all extremities, strength equal bilaterally, generalized weakness. PSYCHIATRIC: Alert and oriented to person place and time, appropriate affect, intact judgment and insight. INVASIVE LINES AND TUBES: Mediastinal/right pleural chest tubes present and connected to low continuous wall suction -20 cm H2O, no air leaks present. Draining thin serosanguineous drainage with 50 mL output in the last 8 hours and 250 mL output since surgery. Atrial and ventricular epicardial pacemaker wires present, connected to a backup bedside pacemaker generator, VVI backup rate 50 bpm. Right internal jugular Cordis, with CVP 11 mmHg. - Labs CBC & Chem 7: 03/16/21 03:45 03/16/21 03:45 Labs: Abnormal Lab Results - Last 24 Hours (Table) 03/15/21 03/15/21 03/15/21 Range/Units 09:23 11:00 13:08 WBC (3.8-10.6) k/uL RBC (3.80-5.40) m/uL Hgb (11.4-16.0) gm/dL Hct (34.0-46.0) % Neutrophils # (1.3-7.7) k/uL Sodium (137-145) mmol/L Glucose (74-99) mg/dL POC Glucose (mg/dL) 131 H 117 H 109 H (75-99) mg/dL Calcium (8.4-10.2) mg/dL AST (14-36) U/L Total Protein (6.3-8.2) g/dL Albumin (3.5-5.0) g/dL 03/15/21 03/15/21 03/15/21 Range/Units 14:02 17:06 18:10 WBC (3.8-10.6) k/uL RBC (3.80-5.40) m/uL Hgb (11.4-16.0) gm/dL Hct (34.0-46.0) % Neutrophils # (1.3-7.7) k/uL Sodium (137-145) mmol/L Glucose (74-99) mg/dL POC Glucose (mg/dL) 148 H 115 H 196 H (75-99) mg/dL Calcium (8.4-10.2) mg/dL AST (14-36) U/L Total Protein (6.3-8.2) g/dL Albumin (3.5-5.0) g/dL 03/15/21 03/15/21 03/15/21 Range/Units 19:06 20:09 21:17 WBC (3.8-10.6) k/uL RBC (3.80-5.40) m/uL Hgb (11.4-16.0) gm/dL Hct (34.0-46.0) % Neutrophils # (1.3-7.7) k/uL Sodium (137-145) mmol/L Glucose (74-99) mg/dL POC Glucose (mg/dL) 225 H 138 H 124 H (75-99) mg/dL Calcium (8.4-10.2) mg/dL AST (14-36) U/L Total Protein (6.3-8.2) g/dL Albumin (3.5-5.0) g/dL 03/15/21 03/16/21 03/16/21 Range/Units 23:08 00:07 02:03 WBC (3.8-10.6) k/uL RBC (3.80-5.40) m/uL Hgb (11.4-16.0) gm/dL Hct (34.0-46.0) % Neutrophils # (1.3-7.7) k/uL Sodium (137-145) mmol/L Glucose (74-99) mg/dL POC Glucose (mg/dL) 119 H 120 H 128 H (75-99) mg/dL Calcium (8.4-10.2) mg/dL AST (14-36) U/L Total Protein (6.3-8.2) g/dL Albumin (3.5-5.0) g/dL 03/16/21 03/16/21 03/16/21 Range/Units 03:45 03:45 04:02 WBC 12.6 H (3.8-10.6) k/uL RBC 3.26 L (3.80-5.40) m/uL Hgb 10.2 L (11.4-16.0) gm/dL Hct 30.1 L (34.0-46.0) % Neutrophils # 9.4 H (1.3-7.7) k/uL Sodium 134 L (137-145) mmol/L Glucose 105 H (74-99) mg/dL POC Glucose (mg/dL) 69 L (75-99) mg/dL Calcium 8.3 L (8.4-10.2) mg/dL AST 45 H (14-36) U/L Total Protein 5.3 L (6.3-8.2) g/dL Albumin 3.0 L (3.5-5.0) g/dL 03/16/21 03/16/21 03/16/21 Range/Units 04:43 06:13 07:26 WBC (3.8-10.6) k/uL RBC (3.80-5.40) m/uL Hgb (11.4-16.0) gm/dL Hct (34.0-46.0) % Neutrophils # (1.3-7.7) k/uL Sodium (137-145) mmol/L Glucose (74-99) mg/dL POC Glucose (mg/dL) 102 H 129 H 114 H (75-99) mg/dL Calcium (8.4-10.2) mg/dL AST (14-36) U/L Total Protein (6.3-8.2) g/dL Albumin (3.5-5.0) g/dL Assessment and Plan Assessment: 1. Severe aortic valve stenosis, status post aortic valve replacement with a 23 mm Li Inspiris bioprosthetic aortic valve 2. History of paroxysmal atrial tachycardia and fibrillation, status post clipping of her left atrial appendage and removal of loop recorder 3. Hypertension 4. Hyperlipidemia 5. Fibromyalgia 6. Lupus 7. Rheumatoid arthritis 8. GERD 9. Memory impairment 10. Lifetime nonsmoker 11. Postoperative acute blood loss anemia, expected given hemodilution and cardiopulmonary bypass pump Plan: 1. Continue aspirin, statin, zetia, Plavix, beta mo. Will increase her metoprolol titrate as tolerated. 2. Encourage incentive spirometry 10 times every hour while awake. Bronchodilators per pulmonology management. 3. Increase activity, ambulate as tolerated. PT/OT/cardiac rehab following. 4. Will monitor daily labs and chest x-rays. Electrolyte replacement per protocol. No transfusion. 5. GI/DVT prophylaxis. 6. Pain control with current medication regimen. Once her chest tubes have been removed we will discontinue the [place] and restart her on her home dose of oxycodone 5 mg by mouth every 6 hours when necessary pain. 7. Insulin management per primary care service. Patient is not diabetic, hemoglobin A1c 5.7 %, although patient does need tight blood sugar control to prevent infection and promote sternal union. 8. Discontinue right IJ Cordis. Remove right radial arterial line. 9. We will remove her mediastinal/right pleural chest tubes today. 10. Discontinue Pace catheter. Continue to record strict and accurate intake and output. Daily weights. 11. Continue home dose of folic acid and vitamin D2. 12. Ground her atrial and ventricular epicardial pacemaker wires. 13. Lasix 40 mg IV 1 now. 14. More recommendations to follow based on patient's clinical course. Time with Patient: Greater than 30
--- NOTE | 2021-03-16 10:41 | P.PN ---
Subjective This is a pleasant 61 years old female with past medical history of hypertension, hyperlipidemia, migraine headache, rheumatoid arthritis, ulcerativ e colitis, lupus, pancreatitis. History of anxiety. Patient was admitted for severe aortic valve stenosis status post aortic valve replacement with bioprosthetic aortic valve. Today is postoperative day #1. Patient today is lying in chair in the ICU, still in distress due to pain at the surgical site. She is hemodynamically stable Glucose control CBC and BMP and liver enzymes are unremarkable Patient is currently is on aspirin, Plavix, Zetia and metoprolol 03/16/2021 Patient generally doing well, this chest pain. No respiratory symptoms. Chest Place. She Is Hemodynamically Stable, Oxygen Saturation Long 90s. Mild Leukocytosis Mostly Reactive at 12.5 K. Hemoglobin Stable at 10.2. She Is Getting 1-2 Units of Insulin Every Hour, and Is on Diet, She Is with Hemoglobin A1c of 5.7%, Discussed with the Staff Patient Consultation to Insulin Sliding Scale. Normal bowel movement but she does not want laxative Several consultants on the case Objective - Vital Signs Vital signs: Vital Signs Temp 98.2 F 03/16/21 08:00 Pulse 81 03/16/21 10:00 Resp 12 03/16/21 10:00 BP 119/69 03/16/21 10:00 Pulse Ox 85 L 03/16/21 10:00 Intake & Output 03/15/21 03/16/21 03/16/21 18:59 06:59 18:59 Intake Total 448.625 58.659 309 Output Total 860 530 540 Balance -411.375 -471.341 -231 Weight 88.7 kg 89.1 kg Intake: IV 375 36 69 Lactated Ringers 1,000 ml 280 60 @ 20 mls/hr IV .Q24H [facility] Rx#:[id number] cardiac output 20 pressure bag 75 36 9 Intake, IV Titration 73.625 22.659 Amount Dexmedetomidine/0.9% NaCl 50.908 (Pmx) 400 mcg In Empty Bag 1 bag @ Titrate IV . Q0M [facility] Rx#:[id number] Insulin Regular 100 unit 22.717 22.659 In Sodium Chloride 0.9% 100 ml @ Per Protocol IV .Q0M [facility] Rx#:[id number] Oral 240 Output: Chest Tube Drainage 190 60 40 mediastinal and right 190 60 40 pleural Urine 670 470 500 Other: Voiding Method Indwelling Catheter Indwelling Catheter Indwelling Catheter ABP, PAP, CO, CI - Last Documented Arterial Blood Pressure 133/60 Pulmonary Artery Pressure 23/9 Cardiac Output 4.9 Cardiac Index 2.6 - Exam GENERAL: The patient is alert and oriented x3, not in any acute distress. Well developed, well nourished. HEENT: Pupils are round and equally reacting to light. EOMI. No scleral icterus. No conjunctival pallor. Normocephalic, atraumatic. No pharyngeal erythema. No thyromegaly. -CARDIOVASCULAR: S1 and S2 present. No murmurs, rubs, or gallops. Chest wall wound with dressing is in place, we will defer the rest of the exam to surgical team PULMONARY: Chest is clear to auscultation, no wheezing or crackles. ABDOMEN: Soft, nontender, nondistended, normoactive bowel sounds. No palpable organomegaly. MUSCULOSKELETAL: No joint swelling or deformity. EXTREMITIES: No cyanosis, clubbing, or pedal edema. NEUROLOGICAL: Gross neurological examination did not reveal any focal deficits. SKIN: No rashes. No petechiae - Labs CBC & Chem 7: 03/16/21 03:45 03/16/21 03:45 Labs: Abnormal Lab Results - Last 24 Hours (Table) 03/15/21 03/15/21 03/15/21 Range/Units 11:00 13:08 14:02 WBC (3.8-10.6) k/uL RBC (3.80-5.40) m/uL Hgb (11.4-16.0) gm/dL Hct (34.0-46.0) % Neutrophils # (1.3-7.7) k/uL Sodium (137-145) mmol/L Glucose (74-99) mg/dL POC Glucose (mg/dL) 117 H 109 H 148 H (75-99) mg/dL Calcium (8.4-10.2) mg/dL AST (14-36) U/L Total Protein (6.3-8.2) g/dL Albumin (3.5-5.0) g/dL 03/15/21 03/15/21 03/15/21 Range/Units 17:06 18:10 19:06 WBC (3.8-10.6) k/uL RBC (3.80-5.40) m/uL Hgb (11.4-16.0) gm/dL Hct (34.0-46.0) % Neutrophils # (1.3-7.7) k/uL Sodium (137-145) mmol/L Glucose (74-99) mg/dL POC Glucose (mg/dL) 115 H 196 H 225 H (75-99) mg/dL Calcium (8.4-10.2) mg/dL AST (14-36) U/L Total Protein (6.3-8.2) g/dL Albumin (3.5-5.0) g/dL 03/15/21 03/15/21 03/15/21 Range/Units 20:09 21:17 23:08 WBC (3.8-10.6) k/uL RBC (3.80-5.40) m/uL Hgb (11.4-16.0) gm/dL Hct (34.0-46.0) % Neutrophils # (1.3-7.7) k/uL Sodium (137-145) mmol/L Glucose (74-99) mg/dL POC Glucose (mg/dL) 138 H 124 H 119 H (75-99) mg/dL Calcium (8.4-10.2) mg/dL AST (14-36) U/L Total Protein (6.3-8.2) g/dL Albumin (3.5-5.0) g/dL 03/16/21 03/16/21 03/16/21 Range/Units 00:07 02:03 03:45 WBC 12.6 H (3.8-10.6) k/uL RBC 3.26 L (3.80-5.40) m/uL Hgb 10.2 L (11.4-16.0) gm/dL Hct 30.1 L (34.0-46.0) % Neutrophils # 9.4 H (1.3-7.7) k/uL Sodium (137-145) mmol/L Glucose (74-99) mg/dL POC Glucose (mg/dL) 120 H 128 H (75-99) mg/dL Calcium (8.4-10.2) mg/dL AST (14-36) U/L Total Protein (6.3-8.2) g/dL Albumin (3.5-5.0) g/dL 03/16/21 03/16/21 03/16/21 Range/Units 03:45 04:02 04:43 WBC (3.8-10.6) k/uL RBC (3.80-5.40) m/uL Hgb (11.4-16.0) gm/dL Hct (34.0-46.0) % Neutrophils # (1.3-7.7) k/uL Sodium 134 L (137-145) mmol/L Glucose 105 H (74-99) mg/dL POC Glucose (mg/dL) 69 L 102 H (75-99) mg/dL Calcium 8.3 L (8.4-10.2) mg/dL AST 45 H (14-36) U/L Total Protein 5.3 L (6.3-8.2) g/dL Albumin 3.0 L (3.5-5.0) g/dL 03/16/21 03/16/21 Range/Units 06:13 07:26 WBC (3.8-10.6) k/uL RBC (3.80-5.40) m/uL Hgb (11.4-16.0) gm/dL Hct (34.0-46.0) % Neutrophils # (1.3-7.7) k/uL Sodium (137-145) mmol/L Glucose (74-99) mg/dL POC Glucose (mg/dL) 129 H 114 H (75-99) mg/dL Calcium (8.4-10.2) mg/dL AST (14-36) U/L Total Protein (6.3-8.2) g/dL Albumin (3.5-5.0) g/dL Assessment and Plan Assessment: Severe aortic valve disease status post aortic valve replacement with bioprosthetic valve Hypertension Hyperlipidemia History of migraine headache History of rheumatoid arthritis History of ulcerative colitis History of lupus History of pancreatitis Plan: This is a pleasant 61 years old female who presents for aortic valve replacement. Patient currently kept in the ICU, she is on aspirin, Plavix, metoprolol and Zetia. Monitor glucose with insulin sliding scale Cardiothoracic surgery team, pulmonary team and cardiology team on the case Labs and medication were reviewed.. Continue same treatment. Continue with symptomatic treatment. Resume home medication. Monitor lytes and vitals. DVT and GI prophylaxis. Further recommendations depends on the clinical course of the patient DVT prophylaxis: Subcutaneous heparin GI Prophylaxis: Ppi Prognosis is guarded
--- NOTE | 2021-03-16 10:45 | PN ---
PROGRESS NOTE Mrs. Chowdhury is a 61-year-old female who presented to undergo aortic valve replacement. She is feeling reasonably well this morning. She is complaining of right-sided chest discomfort with some dyspnea. She is in sinus mechanism. She denies any dizziness or palpitation. She continues to be at this time on aspirin once a day, Lipitor 40 mg daily, Plavix 75 mg daily, Zetia 10 mg daily, and metoprolol tartrate 25 mg twice a day. PHYSICAL EXAMINATION: VITAL SIGNS: Blood pressure 134/70 with a heart rate in the 80s. LUNGS: With decreased air exchange bilaterally. HEART: Regular rate and rhythm S1, S2. No S3 with systolic murmur. No diastolic murmur. ABDOMEN: Soft, obese, nontender. EXTREMITIES: No edema. LAB DATA: Lab data revealed BUN and creatinine 11 and 0.53, potassium 4.1, hemoglobin of 10.2. Her chest x-ray revealed small left pleural effusion. IMPRESSION: 1. Status post aortic valve replacement, stable. 2. Chest wall discomfort. 3. History of hypertension. 4. History of hyperlipidemia. RECOMMENDATION: From the cardiac standpoint, she is stable. We will continue present therapy. Continue incentive spirometry. Increase her activity gradually and depending on her progress further recommendation will be made. MMODL / IJN: [id number] /
--- NOTE | 2021-03-16 11:07 | P.PN ---
Subjective Progress Note Date: 03/16/21 Principal diagnosis: Severe aortic valve stenosis This is a 61-year-old white female patient with past medical history severe aortic stenosis, hypertension, hyperlipidemia, fibromyalgia, paroxysmal atrial tachycardia and fibrillation, lupus, rheumatoid arthritis and dyslipidemia. Patient follows with Dr. Freed [facility]. Patient had a recent hospitalization for chest pain. Patient was undergoing outpatient evaluation with Dr. Cam jackson for possibility of aortic valve replacement. Recent cardiac catheterization showed 40% lesion in the mid LAD, a transesophageal echocardiogram showed severe aortic stenosis with a bicuspid valve with a mean gradient 56 mmHg. His chest x-ray from 02/19/2021 showed coarsened interstitium. And normal heart size. Patient outpatient PFT showed FEV1 of 1.9 L or 88% of predicted, FVC of 2.29 or 77% of predicted, consistent with mild restriction, MVV was 74.6. On 03/14/2021 patient underwent aortic valve replacement with a 23 mm bioprosthetic valve. Patient is seen in the postoperative period in the intensive care unit, on assist control mode of ventilation with a rate of 14, tidal volume is 400, FiO2 of 50% and PEEP of 10, sedated. Postoperative blood gas showed a pO2 of 268, pCO2 45, and pH of 7.36, and this was on the 100% FiO2 and FiO2 has since been dropped down to 50%, currently hemodynamically stable although requiring small amount of clot proximal for blood pressure control, at 2 mg per hour, Diprivan is a 40 mics per kilo per minute, insulin drip is at 2 units per hour, and lactated Ringer's at 50 ML per hour. In sinus mechanism with a rate of 70 BPM. PA pressure is 20/17, with CVP of 7, cardiac output is 3.8, and cardiac index is 2.0. One mediastinal and right pleural chest tube are Y-connected together, with small amount of serosanguineous output in the Pleur-evac, no evidence of air leak, postoperative chest x-ray shows satisfactory postoperative chest x-ray, no evident pneumothorax or pleural effusion, low lung volumes, minimal basilar atelectatic changes. Postoperative labs have been noted, white blood cell count is 13.4, hemoglobin is 12.4, no significant chest tube output, patient is producing in the order of 200-300 ML per hour. On 03/15/2021 patient seen in follow-up in the intensive care unit, she was successfully weaned and extubated from the mechanical ventilator last night at 1645, and patient was successfully weaned from the mechanical ventilator within 6 hours of or exit time which was 1223. She is currently awake and alert, oriented 3, breathing comfortably, she sits up in the chair, currently on 2 L of oxygen with a pulse ox of 96%, she is working on the incentive spirometer, she has been up out of bed this morning and ambulated out of for room in the unit, tolerated activity well, hemodynamically she is stable, not requiring any vasopressor support, she is in sinus mechanism with a rate of 90 BPM, she is currently on lactated Ringer's at 30 in all per hour, insulin drip is 2.5 units per hour. Her PA pressure is 20/6, CVP is 4, her cardiac output this morning is 5.9, and cardiac index is 3.2, she has one mediastinal and right pleural chest tube with small amount of serosanguineous output, no evidence of air leak, today's chest x-ray has been reviewed showing bibasilar opacities. Labs have been reviewed, white blood cell count is 8.1, hemoglobin is 10.1, sodium is 133, there is electrolyte and renal profile were unremarkable. Pace catheter is in place, and urine output is in the order of 20-50 ML per hour, chest tube output was 325 ML in the last 24 hours. Incisions are clean dry and intact. On 03/16/2021 patient seen in follow-up in intensive care unit, today is postoperative day #2, status post aortic valve replacement. She is awake and alert, oriented 3, breathing comfortably, she is sitting up in the recliner, room air pulse ox is 85-90%, she is working on incentive spirometer, she is achieving 1000 ML on the today, she is in sinus mechanism, with a rate of 89 BPM, she is not on any vasopressor support, insulin drip has been discontinued, she is on maintenance IV fluids with lactated Ringer's at 20 ML per hour. She is complaining of moderate incisional pain, is receiving pain medications. Today's chest x-ray shows bibasilar left greater than right opacities related to basilar atelectasis, and new small left pleural effusion. Still has a mediastinal and right pleural chest tube in place and there has been 250 ML of thin serosanguineous output from the chest tubes in last 24 hours, anticipate discontinuation of the chest tube today per cardiothoracic surgery, urine output is adequate, Pace catheter is also going to be discontinued today, her PA catheter has been discontinued yesterday, hemodynamically she is been stable, no arrhythmias overnight. She has been tolerating ambulation, no nausea or vomiting, she is tolerating oral intake. Today's labs have been reviewed, white blood cell count is 12.6, hemoglobin is 10.2, sodium is 134, the rest of the electrolytes and the renal profile were unremarkable. Objective - Vital Signs Vital signs: Vital Signs Temp 98.2 F 03/16/21 08:00 Pulse 81 03/16/21 10:00 Resp 12 03/16/21 10:00 BP 119/69 03/16/21 10:00 Pulse Ox 85 L 03/16/21 10:00 Intake & Output 03/15/21 03/16/21 03/16/21 18:59 06:59 18:59 Intake Total 448.625 58.659 309 Output Total 860 530 540 Balance -411.375 -471.341 -231 Weight 88.7 kg 89.1 kg Intake: IV 375 36 69 Lactated Ringers 1,000 ml 280 60 @ 20 mls/hr IV .Q24H [facility] Rx#:[id number] cardiac output 20 pressure bag 75 36 9 Intake, IV Titration 73.625 22.659 Amount Dexmedetomidine/0.9% NaCl 50.908 (Pmx) 400 mcg In Empty Bag 1 bag @ Titrate IV . Q0M [facility] Rx#:[id number] Insulin Regular 100 unit 22.717 22.659 In Sodium Chloride 0.9% 100 ml @ Per Protocol IV .Q0M [facility] Rx#:[id number] Oral 240 Output: Chest Tube Drainage 190 60 40 mediastinal and right 190 60 40 pleural Urine 670 470 500 Other: Voiding Method Indwelling Catheter Indwelling Catheter Indwelling Catheter ABP, PAP, CO, CI - Last Documented Arterial Blood Pressure 133/60 Pulmonary Artery Pressure 23/9 Cardiac Output 4.9 Cardiac Index 2.6 - Exam GENERAL EXAM: Awake and alert and oriented 3, 61-year-old white female comfortab le in no apparent distress. HEAD: Normocephalic/atraumatic. EYES: Normal reaction of pupils, equal size. Conjunctiva pink, sclera white. NOSE: Clear with pink turbinates. THROAT: No erythema or exudates. NECK: No masses, no JVD, no thyroid enlargement, no adenopathy. CHEST: No chest wall deformity. Symmetrical expansion. Mediastinal chest tube clean dry and intact, 1 mediastinal and right pleural chest tube in place, connected together, small amount of sanguinous output in the Pleur-evac, con nected to wall suction, epicardial wires connected to external pacemaker with backup mode, intrinsic rhythm is sinus rhythm LUNGS: Equal air entry with no crackles, wheeze, rhonchi or dullness. CVS: Regular rate and rhythm, normal S1 and S2, no gallops, no murmurs, no rubs ABDOMEN: Soft, nontender. No hepatosplenomegaly, normal bowel sounds, no guarding or rigidity. EXTREMITIES: No clubbing, no edema, no cyanosis, 2+ pulses and upper and lower extremities. MUSCULOSKELETAL: Muscle strength and tone normal. SPINE: No scoliosis or deformity SKIN: No rashes CENTRAL NERVOUS SYSTEM: Awake and alert, oriented 3 No focal deficits, tone is normal in all 4 extremities. - Labs CBC & Chem 7: 03/16/21 03:45 03/16/21 03:45 Labs: Abnormal Lab Results - Last 24 Hours (Table) 03/15/21 03/15/21 03/15/21 Range/Units 11:00 13:08 14:02 WBC (3.8-10.6) k/uL RBC (3.80-5.40) m/uL Hgb (11.4-16.0) gm/dL Hct (34.0-46.0) % Neutrophils # (1.3-7.7) k/uL Sodium (137-145) mmol/L Glucose (74-99) mg/dL POC Glucose (mg/dL) 117 H 109 H 148 H (75-99) mg/dL Calcium (8.4-10.2) mg/dL AST (14-36) U/L Total Protein (6.3-8.2) g/dL Albumin (3.5-5.0) g/dL 03/15/21 03/15/21 03/15/21 Range/Units 17:06 18:10 19:06 WBC (3.8-10.6) k/uL RBC (3.80-5.40) m/uL Hgb (11.4-16.0) gm/dL Hct (34.0-46.0) % Neutrophils # (1.3-7.7) k/uL Sodium (137-145) mmol/L Glucose (74-99) mg/dL POC Glucose (mg/dL) 115 H 196 H 225 H (75-99) mg/dL Calcium (8.4-10.2) mg/dL AST (14-36) U/L Total Protein (6.3-8.2) g/dL Albumin (3.5-5.0) g/dL 03/15/21 03/15/21 03/15/21 Range/Units 20:09 21:17 23:08 WBC (3.8-10.6) k/uL RBC (3.80-5.40) m/uL Hgb (11.4-16.0) gm/dL Hct (34.0-46.0) % Neutrophils # (1.3-7.7) k/uL Sodium (137-145) mmol/L Glucose (74-99) mg/dL POC Glucose (mg/dL) 138 H 124 H 119 H (75-99) mg/dL Calcium (8.4-10.2) mg/dL AST (14-36) U/L Total Protein (6.3-8.2) g/dL Albumin (3.5-5.0) g/dL 03/16/21 03/16/21 03/16/21 Range/Units 00:07 02:03 03:45 WBC 12.6 H (3.8-10.6) k/uL RBC 3.26 L (3.80-5.40) m/uL Hgb 10.2 L (11.4-16.0) gm/dL Hct 30.1 L (34.0-46.0) % Neutrophils # 9.4 H (1.3-7.7) k/uL Sodium (137-145) mmol/L Glucose (74-99) mg/dL POC Glucose (mg/dL) 120 H 128 H (75-99) mg/dL Calcium (8.4-10.2) mg/dL AST (14-36) U/L Total Protein (6.3-8.2) g/dL Albumin (3.5-5.0) g/dL 03/16/21 03/16/21 03/16/21 Range/Units 03:45 04:02 04:43 WBC (3.8-10.6) k/uL RBC (3.80-5.40) m/uL Hgb (11.4-16.0) gm/dL Hct (34.0-46.0) % Neutrophils # (1.3-7.7) k/uL Sodium 134 L (137-145) mmol/L Glucose 105 H (74-99) mg/dL POC Glucose (mg/dL) 69 L 102 H (75-99) mg/dL Calcium 8.3 L (8.4-10.2) mg/dL AST 45 H (14-36) U/L Total Protein 5.3 L (6.3-8.2) g/dL Albumin 3.0 L (3.5-5.0) g/dL 03/16/21 03/16/21 Range/Units 06:13 07:26 WBC (3.8-10.6) k/uL RBC (3.80-5.40) m/uL Hgb (11.4-16.0) gm/dL Hct (34.0-46.0) % Neutrophils # (1.3-7.7) k/uL Sodium (137-145) mmol/L Glucose (74-99) mg/dL POC Glucose (mg/dL) 129 H 114 H (75-99) mg/dL Calcium (8.4-10.2) mg/dL AST (14-36) U/L Total Protein (6.3-8.2) g/dL Albumin (3.5-5.0) g/dL Assessment and Plan Plan: Assessment: #1. Severe aortic stenosis, status post aortic valve replacement, on 03/14/2021, postoperative day #2 #2. Routine ventilator management, patient successfully weaned and extubated within 6 hours of OR exit time on 03/14/2021 #3. History of bicuspid aortic stenosis #4. Hypertension #5. Fibromyalgia #6. History of ulcerative colitis #7. Lupus #8. Paroxysmal atrial tachycardia and fibrillation Plan: Encourage deep breathing and coughing, incentive spirometry use Todays chest x-ray has been reviewed, showing bibasilar atelectasis and small left pleural effusion Hemodynamically patient is stable In sinus mechanism not requiring any vasopressor support Tolerating ambulation GI and DVT prophylaxis We'll continue to follow I performed a history & physical examination of the patient and discussed their management with my nurse practitioner, Stephania Ying. I reviewed the nurse practitioner's note and agree with the documented findings and plan of care. Lung sounds are positive for diminished breath sounds throughout the lung beach. The findings and the impression was discussed with the patient. I attest to the documentation by the nurse practitioner. Time with Patient: Less than 30
[2021-03-16 13:00] LABS: Glucose,Whole Blood 185 mg/dL (75-99)
[2021-03-16] MEDS: INSULIN ASPART (NovoLOG) 100 UNIT/ML VIAL SQ SCH ×3 (13:03→21:02)
[2021-03-16] MEDS: EZETIMIBE 10 MG TAB PO SCH (13:03)
[2021-03-16 17:39] LABS: Glucose,Whole Blood 103 mg/dL (75-99)
[2021-03-16 20:01] LABS: Glucose,Whole Blood 217 mg/dL (75-99)
[2021-03-16] MEDS: SENNOSIDES-DOCUSATE SODIUM 1 EACH TAB PO SCH (21:03)
[2021-03-16] MEDS: CYCLOBENZAPRINE 10 MG TAB PO PRN (21:03)
[2021-03-17] MEDS: CYCLOBENZAPRINE 10 MG TAB PO PRN ×3 (04:57→21:10)
[2021-03-17 06:14] LABS: Glucose,Whole Blood 127 mg/dL (75-99)
[2021-03-17] MEDS: INSULIN ASPART (NovoLOG) 100 UNIT/ML VIAL SQ SCH ×4 (06:27→21:00)
[2021-03-17] MEDS: PANTOPRAZOLE 40 MG TABLET PO SCH (06:38)
[2021-03-17] MEDS: IPRATROPIUM-ALBUTEROL 3 ML NEB INHALATION SCH ×4 (07:18→19:53)
[2021-03-17 07:47] LABS: HGB 10.3 gm/dL (11.4-16.0); MCH 31.3 pg (25.0-35.0); MCHC 33.4 g/dL (31.0-37.0); MCV 93.8 fL (80.0-100.0); Mean Platelet Volume 7.9; Platelet Count 236 k/uL (150-450); RDW 13.1 % (11.5-15.5); WBC 11.9 k/uL (3.8-10.6)
[2021-03-17] MEDS ORDERED: KETOROLAC 15 MG/ML 1 ML VIAL IVP STA ×2 (07:47→08:00)
--- NOTE | 2021-03-17 07:51 | XR ---
EXAMINATION TYPE: XR chest 2V DATE OF EXAM: 03/17/2021 COMPARISON: 03/16/2021 TECHNIQUE: PA and lateral views submitted. HISTORY: Postoperative FINDINGS: Right-sided chest tube is been no sizable pneumothorax. Bilateral pleural effusions and subsegmental areas of consolidation. Postoperative change overlying the mediastinum and cervical spine. Chronic ri b deformity stable. IMPRESSION: 1. Postoperative change with chest tube removal with no sizable thorax. 2. Correlate for mild venous congestion improving basilar infiltrate or atelectasis. Persistent small pleural effusion.
[2021-03-17 08:13] LABS: ALT 19 U/L (4-34); AST 29 U/L (14-36); African American GFR (CKD) >90 (>60 ml/min/1.73 sqM); Albumin 3.1 g/dL (3.5-5.0); Alkaline Phosphatase 73 U/L (38-126); Anion Gap 2 mmol/L; Blood Urea Nitrogen 14 mg/dL (7-17); Calcium 8.8 mg/dL (8.4-10.2); Carbon Dioxide 34 mmol/L (22-30); Chloride 99 mmol/L (98-107); Glucose 121 mg/dL (74-99); Non-African American GFR(CKD) >90 (>60 ml/min/1.73 sqM); Potassium 4.2 mmol/L (3.5-5.1); Sodium 135 mmol/L (137-145); Total Bilirubin 0.5 mg/dL (0.2-1.3); Total Protein 5.6 g/dL (6.3-8.2)
[2021-03-17] MEDS: ASPIRIN 325 MG TAB PO SCH (08:23)
[2021-03-17] MEDS: METOPROLOL TARTRATE 25 MG TAB PO SCH ×3 (08:23→21:00)
[2021-03-17] MEDS: HEPARIN SODIUM,PORCINE/PF 5,000 UNIT/0.5 ML SYRINGE SQ SCH ×3 (08:23→23:00)
[2021-03-17] MEDS: CLOPIDOGREL 75 MG TAB PO SCH (08:24)
[2021-03-17] MEDS: ATORVASTATIN 40 MG TAB PO SCH (08:24)
[2021-03-17] MEDS: FOLIC ACID 1 MG TAB PO SCH ×2 (08:24→21:00)
[2021-03-17] MEDS: ERGOCALCIFEROL 1,250 MCG (50,000 IU) CAPSULE PO SCH (08:24)
[2021-03-17 11:31] LABS: Glucose,Whole Blood 117 mg/dL (75-99)
--- NOTE | 2021-03-17 11:35 | P.PN ---
Subjective Progress Note Date: 03/17/21 Principal diagnosis: Severe aortic valve stenosis. Previous medical history of hypertension, hyperlipidemia, fibromyalgia, lupus, rheumatoid arthritis, paroxysmal atrial tachycardia and fibrillation, GERD and memory impairment. POD #3 aortic valve replacement with a 23 mm Li Inspiris bioprosthetic aortic valve, clip ligation of the left atrial appendage with a 35 mm Atriclip, intraoperative transesophageal echocardiogram and removal of her left anterior chest wall loop recorder. Postoperative acute blood loss anemia, expected given hemodilution and cardiopulmonary bypass. The patient's currently sitting up in bed on the cardiac stepdown unit in no acute distress. She does complain of postoperative chest pain, denies shortness of breath. She has been ambulatory in the hallway without difficulty. She remains in sinus rhythm and hemodynamically stable. Continues to be on room air with oxygen saturations in the high 90s, able to achieve 1500 mL on incentive spirometry. No other new concerns. Objective - Vital Signs Vital signs: Vital Signs Temp 98.5 F 03/17/21 08:20 Pulse 91 03/17/21 08:20 Resp 18 03/17/21 08:20 BP 122/63 03/17/21 08:20 Pulse Ox 92 L 03/17/21 08:20 Intake & Output 03/16/21 03/17/21 03/17/21 18:59 06:59 18:59 Intake Total 549 100 0 Output Total 1315 350 Balance -766 -250 0 Weight 86.9 kg Intake: IV 69 Lactated Ringers 1,000 ml 60 @ 20 mls/hr IV .Q24H [facility] Rx#:[id number] pressure bag 9 Oral 480 100 0 Output: Chest Tube Drainage 40 mediastinal and right 40 pleural Urine 1275 350 Other: Voiding Method Indwelling Catheter Toilet Toilet # Voids 1 ABP, PAP, CO, CI - Last Documented Arterial Blood Pressure 133/60 Pulmonary Artery Pressure 23/9 Cardiac Output 4.9 Cardiac Index 2.6 - Exam CONSTITUTIONAL: Appears comfortable, cooperative, no acute distress RESPIRATORY: Lungs sounds diminished bilaterally. Respirations even, nonlabored. Currently on room air with oxygen saturation 97%. Able to achieve 1500 mL on incentive spirometry. Strong cough. CARDIOVASCULAR: S1, S2 present. Regular rate and rhythm, sinus rhythm on telemetry. Sternum stable. Palpable peripheral pulses bilaterally. No edema present. No calf pain or tenderness noted. Heart hugger in place with patient demonstrating appropriate use. Antiembolism stockings, SCDs present. GASTROINTESTINAL: Abdomen soft, nontender, nondistended. Active bowel sounds present 4 quadrants. Tolerating diet. Positive flatus. GENITOURINARY: Continues to void INTEGUMENTARY: Skin is warm and dry with evidence of good perfusion. Anterior chest incision well approximated and covered with dry intact dressing. NEUROLOGIC: Cranial nerves II through XII intact MUSKULOSKELETAL: Able to move all extremities, strength equal bilaterally, gait normal PSYCHIATRIC: Alert and oriented to person place and time, appropriate affect, intact judgment and insight INVASIVE LINES AND TUBES: A/V epicardial pacemaker wires present, grounded. - Allied health notes Allied health notes reviewed: nursing - Labs CBC & Chem 7: 03/17/21 06:52 03/17/21 06:52 Labs: Abnormal Lab Results - Last 24 Hours (Table) 03/16/21 03/16/21 03/16/21 Range/Units 12:59 17:37 19:59 WBC (3.8-10.6) k/uL RBC (3.80-5.40) m/uL Hgb (11.4-16.0) gm/dL Hct (34.0-46.0) % Sodium (137-145) mmol/L Carbon Dioxide (22-30) mmol/L Glucose (74-99) mg/dL POC Glucose (mg/dL) 185 H 103 H 217 H (75-99) mg/dL Total Protein (6.3-8.2) g/dL Albumin (3.5-5.0) g/dL 03/17/21 03/17/21 03/17/21 Range/Units 06:12 06:52 06:52 WBC 11.9 H (3.8-10.6) k/uL RBC 3.30 L (3.80-5.40) m/uL Hgb 10.3 L (11.4-16.0) gm/dL Hct 31.0 L (34.0-46.0) % Sodium 135 L (137-145) mmol/L Carbon Dioxide 34 H (22-30) mmol/L Glucose 121 H (74-99) mg/dL POC Glucose (mg/dL) 127 H (75-99) mg/dL Total Protein 5.6 L (6.3-8.2) g/dL Albumin 3.1 L (3.5-5.0) g/dL - Imaging and Cardiology Chest x-ray: report reviewed, image reviewed Assessment and Plan Assessment: 1. Severe aortic valve stenosis, status post aortic valve replacement with a 23 mm Li Inspiris bioprosthetic aortic valve 2. History of paroxysmal atrial tachycardia and fibrillation, status post clipping of her left atrial appendage and removal of loop recorder 3. Hypertension 4. Hyperlipidemia 5. Fibromyalgia 6. Lupus 7. Rheumatoid arthritis 8. GERD 9. Memory impairment 10. Lifetime nonsmoker 11. Postoperative acute blood loss anemia, expected given hemodilution and cardiopulmonary bypass pump Plan: 1. Continue aspirin, statin, zetia, Plavix, beta mo. Will increase beta mo as tolerated. 2. Encourage incentive spirometry 10 times every hour while awake. Bronchodilators per pulmonology management. 3. Increase activity, ambulate as tolerated. PT/OT/cardiac rehab following. 4. Will monitor daily labs and chest x-rays. Electrolyte replacement per protocol. No transfusion. 5. GI/DVT prophylaxis. 6. Pain control with current medication regimen. 7. Insulin management per primary care service. Patient is not diabetic, hemoglobin A1c 5.7 %, although patient does need tight blood sugar control to prevent infection and promote sternal union. 8. Strict accurate intake and output, daily weights 9. Discharge planning in progress. Anticipate discharge to home with home care tomorrow 10. More recommendations to follow Time with Patient: Greater than 30
[2021-03-17] MEDS ORDERED: KETOROLAC 15 MG/ML 1 ML VIAL IVP SCH (12:00)
[2021-03-17] MEDS: EZETIMIBE 10 MG TAB PO SCH (12:04)
[2021-03-17] MEDS: MUPIROCIN 2% OINT 22 GM TUBE NASAL SCH ×2 (12:04→21:01)
--- NOTE | 2021-03-17 12:37 | P.PN ---
Subjective This is a pleasant 61 years old female with past medical history of hypertension, hyperlipidemia, migraine headache, rheumatoid arthritis, ulcerativ e colitis, lupus, pancreatitis. History of anxiety. Patient was admitted for severe aortic valve stenosis status post aortic valve replacement with bioprosthetic aortic valve. Today is postoperative day #1. Patient today is lying in chair in the ICU, still in distress due to pain at the surgical site. She is hemodynamically stable Glucose control CBC and BMP and liver enzymes are unremarkable Patient is currently is on aspirin, Plavix, Zetia and metoprolol 03/16/2021 Patient generally doing well, this chest pain. No respiratory symptoms. Chest Place. She Is Hemodynamically Stable, Oxygen Saturation Long 90s. Mild Leukocytosis Mostly Reactive at 12.5 K. Hemoglobin Stable at 10.2. She Is Getting 1-2 Units of Insulin Every Hour, and Is on Diet, She Is with Hemoglobin A1c of 5.7%, Discussed with the Staff Patient Consultation to Insulin Sliding Scale. Normal bowel movement but she does not want laxative Several consultants on the case 03/17/2021 Patient is awake and alert, she is complaining of from some pain at surgical site. She is hemodynamically stable Labs showed only mild leukocytosis which is stable. Sugar is controlled 117-127 today She remains on aspirin and Plavix, metoprolol Objective - Vital Signs Vital signs: Vital Signs Temp 98.6 F 03/17/21 12:01 Pulse 77 03/17/21 12:01 Resp 16 03/17/21 12:01 BP 124/62 03/17/21 12:01 Pulse Ox 97 03/17/21 12:01 Intake & Output 03/16/21 03/17/21 03/17/21 18:59 06:59 18:59 Intake Total 549 100 0 Output Total 1315 350 Balance -766 -250 0 Weight 86.9 kg Intake: IV 69 Lactated Ringers 1,000 ml 60 @ 20 mls/hr IV .Q24H [facility] Rx#:[id number] pressure bag 9 Oral 480 100 0 Output: Chest Tube Drainage 40 mediastinal and right 40 pleural Urine 1275 350 Other: Voiding Method Indwelling Catheter Toilet Toilet # Voids 1 1 ABP, PAP, CO, CI - Last Documented Arterial Blood Pressure 133/60 Pulmonary Artery Pressure 23/9 Cardiac Output 4.9 Cardiac Index 2.6 - Exam GENERAL: The patient is alert and oriented x3, not in any acute distress. Well developed, well nourished. HEENT: Pupils are round and equally reacting to light. EOMI. No scleral icterus. No conjunctival pallor. Normocephalic, atraumatic. No pharyngeal erythema. No thyromegaly. -CARDIOVASCULAR: S1 and S2 present. No murmurs, rubs, or gallops. Chest wall wound with dressing is in place, we will defer the rest of the exam to surgical team PULMONARY: Chest is clear to auscultation, no wheezing or crackles. ABDOMEN: Soft, nontender, nondistended, normoactive bowel sounds. No palpable organomegaly. MUSCULOSKELETAL: No joint swelling or deformity. EXTREMITIES: No cyanosis, clubbing, or pedal edema. NEUROLOGICAL: Gross neurological examination did not reveal any focal deficits. SKIN: No rashes. No petechiae - Labs CBC & Chem 7: 03/17/21 06:52 03/17/21 06:52 Labs: Abnormal Lab Results - Last 24 Hours (Table) 03/16/21 03/16/21 03/16/21 Range/Units 12:59 17:37 19:59 WBC (3.8-10.6) k/uL RBC (3.80-5.40) m/uL Hgb (11.4-16.0) gm/dL Hct (34.0-46.0) % Sodium (137-145) mmol/L Carbon Dioxide (22-30) mmol/L Glucose (74-99) mg/dL POC Glucose (mg/dL) 185 H 103 H 217 H (75-99) mg/dL Total Protein (6.3-8.2) g/dL Albumin (3.5-5.0) g/dL 03/17/21 03/17/21 03/17/21 Range/Units 06:12 06:52 06:52 WBC 11.9 H (3.8-10.6) k/uL RBC 3.30 L (3.80-5.40) m/uL Hgb 10.3 L (11.4-16.0) gm/dL Hct 31.0 L (34.0-46.0) % Sodium 135 L (137-145) mmol/L Carbon Dioxide 34 H (22-30) mmol/L Glucose 121 H (74-99) mg/dL POC Glucose (mg/dL) 127 H (75-99) mg/dL Total Protein 5.6 L (6.3-8.2) g/dL Albumin 3.1 L (3.5-5.0) g/dL 03/17/21 Range/Units 11:29 WBC (3.8-10.6) k/uL RBC (3.80-5.40) m/uL Hgb (11.4-16.0) gm/dL Hct (34.0-46.0) % Sodium (137-145) mmol/L Carbon Dioxide (22-30) mmol/L Glucose (74-99) mg/dL POC Glucose (mg/dL) 117 H (75-99) mg/dL Total Protein (6.3-8.2) g/dL Albumin (3.5-5.0) g/dL Assessment and Plan Assessment: Severe aortic valve disease status post aortic valve replacement with bioprosthetic valve Hypertension Hyperlipidemia History of migraine headache History of rheumatoid arthritis History of ulcerative colitis History of lupus History of pancreatitis Plan: This is a pleasant 61 years old female who presents for aortic valve replace ment. Patient currently kept in the ICU, she is on aspirin, Plavix, metoprolol and Zetia. Monitor glucose with insulin sliding scale Cardiothoracic surgery team, pulmonary team and cardiology team on the case Labs and medication were reviewed.. Continue same treatment. Continue with symptomatic treatment. Resume home medication. Monitor lytes and vitals. DVT and GI prophylaxis. Further recommendations depends on the clinical course of the patient DVT prophylaxis: Subcutaneous heparin GI Prophylaxis: Ppi Prognosis is guarded
[2021-03-17] MEDS ORDERED: FUROSEMIDE 10 MG/ML 4 ML VIAL IV STA (13:34)
--- NOTE | 2021-03-17 14:37 | P.PN ---
Subjective Progress Note Date: 03/17/21 Principal diagnosis: Severe aortic valve stenosis This is a 61-year-old white female patient with past medical history severe aortic stenosis, hypertension, hyperlipidemia, fibromyalgia, paroxysmal atrial tachycardia and fibrillation, lupus, rheumatoid arthritis and dyslipidemia. Patient follows with Dr. Freed [facility]. Patient had a recent hospitalization for chest pain. Patient was undergoing outpatient evaluation with Dr. Cam jackson for possibility of aortic valve replacement. Recent cardiac catheterization showed 40% lesion in the mid LAD, a transesophageal echocardiogram showed severe aortic stenosis with a bicuspid valve with a mean gradient 56 mmHg. His chest x-ray from 02/19/2021 showed coarsened interstitium. And normal heart size. Patient outpatient PFT showed FEV1 of 1.9 L or 88% of predicted, FVC of 2.29 or 77% of predicted, consistent with mild restriction, MVV was 74.6. On 03/14/2021 patient underwent aortic valve replacement with a 23 mm bioprosthetic valve. Patient is seen in the postoperative period in the intensive care unit, on assist control mode of ventilation with a rate of 14, tidal volume is 400, FiO2 of 50% and PEEP of 10, sedated. Postoperative blood gas showed a pO2 of 268, pCO2 45, and pH of 7.36, and this was on the 100% FiO2 and FiO2 has since been dropped down to 50%, currently hemodynamically stable although requiring small amount of clot proximal for blood pressure control, at 2 mg per hour, Diprivan is a 40 mics per kilo per minute, insulin drip is at 2 units per hour, and lactated Ringer's at 50 ML per hour. In sinus mechanism with a rate of 70 BPM. PA pressure is 20/17, with CVP of 7, cardiac output is 3.8, and cardiac index is 2.0. One mediastinal and right pleural chest tube are Y-connected together, with small amount of serosanguineous output in the Pleur-evac, no evidence of air leak, postoperative chest x-ray shows satisfactory postoperative chest x-ray, no evident pneumothorax or pleural effusion, low lung volumes, minimal basilar atelectatic changes. Postoperative labs have been noted, white blood cell count is 13.4, hemoglobin is 12.4, no significant chest tube output, patient is producing in the order of 200-300 ML per hour. On 03/15/2021 patient seen in follow-up in the intensive care unit, she was successfully weaned and extubated from the mechanical ventilator last night at 1645, and patient was successfully weaned from the mechanical ventilator within 6 hours of or exit time which was 1223. She is currently awake and alert, oriented 3, breathing comfortably, she sits up in the chair, currently on 2 L of oxygen with a pulse ox of 96%, she is working on the incentive spirometer, she has been up out of bed this morning and ambulated out of for room in the unit, tolerated activity well, hemodynamically she is stable, not requiring any vasopressor support, she is in sinus mechanism with a rate of 90 BPM, she is currently on lactated Ringer's at 30 in all per hour, insulin drip is 2.5 units per hour. Her PA pressure is 20/6, CVP is 4, her cardiac output this morning is 5.9, and cardiac index is 3.2, she has one mediastinal and right pleural chest tube with small amount of serosanguineous output, no evidence of air leak, today's chest x-ray has been reviewed showing bibasilar opacities. Labs have been reviewed, white blood cell count is 8.1, hemoglobin is 10.1, sodium is 133, there is electrolyte and renal profile were unremarkable. Pace catheter is in place, and urine output is in the order of 20-50 ML per hour, chest tube output was 325 ML in the last 24 hours. Incisions are clean dry and intact. On 03/16/2021 patient seen in follow-up in intensive care unit, today is postoperative day #2, status post aortic valve replacement. She is awake and alert, oriented 3, breathing comfortably, she is sitting up in the recliner, room air pulse ox is 85-90%, she is working on incentive spirometer, she is achieving 1000 ML on the today, she is in sinus mechanism, with a rate of 89 BPM, she is not on any vasopressor support, insulin drip has been discontinued, she is on maintenance IV fluids with lactated Ringer's at 20 ML per hour. She is complaining of moderate incisional pain, is receiving pain medications. Today's chest x-ray shows bibasilar left greater than right opacities related to basilar atelectasis, and new small left pleural effusion. Still has a mediastinal and right pleural chest tube in place and there has been 250 ML of thin serosanguineous output from the chest tubes in last 24 hours, anticipate discontinuation of the chest tube today per cardiothoracic surgery, urine output is adequate, Pace catheter is also going to be discontinued today, her PA catheter has been discontinued yesterday, hemodynamically she is been stable, no arrhythmias overnight. She has been tolerating ambulation, no nausea or vomiting, she is tolerating oral intake. Today's labs have been reviewed, white blood cell count is 12.6, hemoglobin is 10.2, sodium is 134, the rest of the electrolytes and the renal profile were unremarkable. On 03/17/2021 patient is seen in follow-up on selective care unit, today's postoperative day #3, status post aortic valve replacement. Patient is doing well, breathing currently, she is currently on room air, pulse ox is 97%, she is afebrile, hemodynamically she is stable, she is working on the incentive spirometer. She is achieving about 800 on the today. Room air pulse ox is 97%. Today's chest x-ray has been reviewed, showing no sizable pneumothorax, bilateral pleural effusions and subsegmental areas of consolidation. Chest tubes have been removed, she's been ambulating tolerating activity well. She remains in sinus mechanism, hemodynamically she has been stable. Objective - Vital Signs Vital signs: Vital Signs Temp 98.6 F 03/17/21 12:01 Pulse 77 03/17/21 13:45 Resp 16 03/17/21 13:45 BP 124/62 03/17/21 12:01 Pulse Ox 97 03/17/21 12:01 Intake & Output 03/16/21 03/17/21 03/17/21 18:59 06:59 18:59 Intake Total 549 100 0 Output Total 1315 350 Balance -766 -250 0 Weight 86.9 kg Intake: IV 69 Lactated Ringers 1,000 ml 60 @ 20 mls/hr IV .Q24H DEAN Rx#:[id number] pressure bag 9 Oral 480 100 0 Output: Chest Tube Drainage 40 mediastinal and right 40 pleural Urine 1275 350 Other: Voiding Method Indwelling Catheter Toilet Toilet # Voids 1 1 ABP, PAP, CO, CI - Last Documented Arterial Blood Pressure 133/60 Pulmonary Artery Pressure 23/9 Cardiac Output 4.9 Cardiac Index 2.6 - Exam GENERAL EXAM: Awake and alert and oriented 3, 61-year-old white female comfortable in no apparent distress. HEAD: Normocephalic/atraumatic. EYES: Normal reaction of pupils, equal size. Conjunctiva pink, sclera white. NOSE: Clear with pink turbinates. THROAT: No erythema or exudates. NECK: No masses, no JVD, no thyroid enlargement, no adenopathy. CHEST: No chest wall deformity. Symmetrical expansion. Interval removal of mediastinal and right pleural chest tubes, chest tube sites are clean dry and intact. LUNGS: Equal air entry with no crackles, wheeze, rhonchi or dullness. CVS: Regular rate and rhythm, normal S1 and S2, no gallops, no murmurs, no rubs ABDOMEN: Soft, nontender. No hepatosplenomegaly, normal bowel sounds, no guarding or rigidity. EXTREMITIES: No clubbing, no edema, no cyanosis, 2+ pulses and upper and lower extremities. MUSCULOSKELETAL: Muscle strength and tone normal. SPINE: No scoliosis or deformity SKIN: No rashes CENTRAL NERVOUS SYSTEM: Awake and alert, oriented 3 No focal deficits, tone is normal in all 4 extremities. - Labs CBC & Chem 7: 03/17/21 06:52 03/17/21 06:52 Labs: Abnormal Lab Results - Last 24 Hours (Table) 03/16/21 03/16/21 03/17/21 Range/Units 17:37 19:59 06:12 WBC (3.8-10.6) k/uL RBC (3.80-5.40) m/uL Hgb (11.4-16.0) gm/dL Hct (34.0-46.0) % Sodium (137-145) mmol/L Carbon Dioxide (22-30) mmol/L Glucose (74-99) mg/dL POC Glucose (mg/dL) 103 H 217 H 127 H (75-99) mg/dL Total Protein (6.3-8.2) g/dL Albumin (3.5-5.0) g/dL 03/17/21 03/17/21 03/17/21 Range/Units 06:52 06:52 11:29 WBC 11.9 H (3.8-10.6) k/uL RBC 3.30 L (3.80-5.40) m/uL Hgb 10.3 L (11.4-16.0) gm/dL Hct 31.0 L (34.0-46.0) % Sodium 135 L (137-145) mmol/L Carbon Dioxide 34 H (22-30) mmol/L Glucose 121 H (74-99) mg/dL POC Glucose (mg/dL) 117 H (75-99) mg/dL Total Protein 5.6 L (6.3-8.2) g/dL Albumin 3.1 L (3.5-5.0) g/dL Assessment and Plan Plan: Assessment: #1. Severe aortic stenosis, status post aortic valve replacement, on 03/14/2021, postoperative day #3 #2. Routine ventilator management, patient successfully weaned and extubated within 6 hours of OR exit time on 03/14/2021 #3. History of bicuspid aortic stenosis #4. Hypertension #5. Fibromyalgia #6. History of ulcerative colitis #7. Lupus #8. Paroxysmal atrial tachycardia and fibrillation Plan: Patient is doing well Continue encouraging deep breathing and coughing Today's chest x-ray has been reviewed Chest tubes have been reviewed Vital signs are stable Possible discharge home tomorrow We'll continue to follow I performed a history & physical examination of the patient and discussed their management with my nurse practitioner, Stephania Ying. I reviewed the nurse practitioner's note and agree with the documented findings and plan of care. Lung sounds are positive for diminished breath sounds throughout the lung beach. The findings and the impression was discussed with the patient. I attest to the documentation by the nurse practitioner. Time with Patient: Less than 30
--- NOTE | 2021-03-17 14:57 | P.PN ---
Subjective Patient is a pleasant 61 year old female with a past medical history of hypertension, hyperlipidemia, fibromyalgia, lupus, rheumatoid arthritis, paro xysmal atrial tachycardia and fibrillation, GERD and memory impairment. Follows in the office with Dr. Mcneill. Patient is POD #3 aortic valve replacement on 03/14/2021. Patient seen and examined this morning at bedside. No acute distress. She does complain of some mild postoperative chest pain, denies shortness of breath. She is hemodynamically stable. No concerns. Blood pressure 124/62, heart rate 77, afebrile, maintaining oxygen saturation is on room air. Laboratory data reviewed, WBC 11.9, hemoglobin 10.3, platelets 263, sodium 135, potassium 4.2, BUN 14, serum creatinine 0.6. Patient currently maintained on aspirin 325 mg daily, atorvastatin 40 mg daily, Plavix 75 mg daily, that he had 10 mg daily, metoprolol tartrate 25 mg 3 times a day. She is currently maintaining sinus mechanism GENERAL: Well-appearing, well-nourished and in no acute distress. NECK: Supple without JVD or thyromegaly. LUNGS: Breath sounds clear to auscultation bilaterally. Respiration equal and unlabored. No wheezes, rales or rhonchi. HEART: Regular rate and rhythm without murmurs, rubs or gallops. S1 and S2 heard. Anterior chest incision covered with dressing is dry and intact. She continues to have epicardial pacemaker wires present EXTREMITIES: Normal range of motion, no edema. No clubbing or cyanosis. Peripheral pulses intact. ASSESSMENT Severe aortic stenosis Status post aortic valve replacement History of paroxysmal atrial tachycardia and atrial fibrillation status post living her left atrial appendage History of hypertension History of hyperlipidemia PLAN Continue current present medical therapy with aspirin, statin, Zetia, Plavix and beta mo. Encourage incentive spirometry and increase activity as tolerated. Primary management from cardiothoracic surgery We will continue to follow. Further recommendations based on clinical course. Nurse Practitioner note has been reviewed, I agree with a documented findings and plan of care. Patient was seen and examined. Objective - Vital Signs Vital signs: Vital Signs Temp 98.5 F 03/17/21 08:20 Pulse 91 03/17/21 08:20 Resp 18 03/17/21 08:20 BP 122/63 03/17/21 08:20 Pulse Ox 92 L 03/17/21 08:20 Intake & Output 03/16/21 03/17/21 03/17/21 18:59 06:59 18:59 Intake Total 549 100 0 Output Total 1315 350 Balance -766 -250 0 Weight 86.9 kg Intake: IV 69 Lactated Ringers 1,000 ml 60 @ 20 mls/hr IV .Q24H DEAN Rx#:[id number] pressure bag 9 Oral 480 100 0 Output: Chest Tube Drainage 40 mediastinal and right 40 pleural Urine 1275 350 Other: Voiding Method Indwelling Catheter Toilet # Voids 1 ABP, PAP, CO, CI - Last Documented Arterial Blood Pressure 133/60 Pulmonary Artery Pressure 23/9 Cardiac Output 4.9 Cardiac Index 2.6 - Labs CBC & Chem 7: 03/17/21 06:52 03/17/21 06:52 Labs: Abnormal Lab Results - Last 24 Hours (Table) 03/16/21 03/16/21 03/16/21 Range/Units 12:59 17:37 19:59 WBC (3.8-10.6) k/uL RBC (3.80-5.40) m/uL Hgb (11.4-16.0) gm/dL Hct (34.0-46.0) % Sodium (137-145) mmol/L Carbon Dioxide (22-30) mmol/L Glucose (74-99) mg/dL POC Glucose (mg/dL) 185 H 103 H 217 H (75-99) mg/dL Total Protein (6.3-8.2) g/dL Albumin (3.5-5.0) g/dL 03/17/21 03/17/21 03/17/21 Range/Units 06:12 06:52 06:52 WBC 11.9 H (3.8-10.6) k/uL RBC 3.30 L (3.80-5.40) m/uL Hgb 10.3 L (11.4-16.0) gm/dL Hct 31.0 L (34.0-46.0) % Sodium 135 L (137-145) mmol/L Carbon Dioxide 34 H (22-30) mmol/L Glucose 121 H (74-99) mg/dL POC Glucose (mg/dL) 127 H (75-99) mg/dL Total Protein 5.6 L (6.3-8.2) g/dL Albumin 3.1 L (3.5-5.0) g/dL
[2021-03-17 16:48] LABS: Glucose,Whole Blood 144 mg/dL (75-99)
[2021-03-17] MEDS: AMIODARONE 360 MG in DEXTROSE 5% IN WATER 200 ML IV PRN ×4 (18:24→22:50)
[2021-03-17] MEDS: diazePAM 2 MG TAB PO PRN (18:36)
[2021-03-17 19:44] LABS: Glucose,Whole Blood 153 mg/dL (75-99)
[2021-03-17] MEDS: SENNOSIDES-DOCUSATE SODIUM 1 EACH TAB PO SCH (21:00)
[2021-03-18] MEDS: AMIODARONE 450 MG in DEXTROSE 5% IN WATER 250 ML IV PRN ×4 (00:56→16:35)
[2021-03-18 06:09] LABS: Glucose,Whole Blood 130 mg/dL (75-99)
[2021-03-18] MEDS: CYCLOBENZAPRINE 10 MG TAB PO PRN ×2 (06:12→16:34)
[2021-03-18] MEDS: PANTOPRAZOLE 40 MG TABLET PO SCH (06:47)
[2021-03-18] MEDS: INSULIN ASPART (NovoLOG) 100 UNIT/ML VIAL SQ SCH ×4 (06:47→21:13)
[2021-03-18] MEDS: ATORVASTATIN 40 MG TAB PO SCH (08:44)
[2021-03-18] MEDS: ASPIRIN 325 MG TAB PO SCH (08:44)
[2021-03-18] MEDS: FOLIC ACID 1 MG TAB PO SCH ×2 (08:44→21:12)
[2021-03-18] MEDS: CLOPIDOGREL 75 MG TAB PO SCH (08:45)
[2021-03-18] MEDS: AMIODARONE 200 MG TAB PO SCH ×2 (08:45→21:12)
[2021-03-18] MEDS: METOPROLOL TARTRATE 25 MG TAB PO SCH ×3 (08:47→21:12)
[2021-03-18] MEDS: HEPARIN SODIUM,PORCINE/PF 5,000 UNIT/0.5 ML SYRINGE SQ SCH ×3 (08:48→22:44)
[2021-03-18] MEDS: IPRATROPIUM-ALBUTEROL 3 ML NEB INHALATION SCH ×4 (08:53→20:40)
[2021-03-18 09:39] LABS: HCT 31.5 % (34.0-46.0); HGB 10.1 gm/dL (11.4-16.0); MCV 93.7 fL (80.0-100.0); Mean Platelet Volume 7.8; Platelet Count 302 k/uL (150-450); RBC 3.37 m/uL (3.80-5.40); RDW 13.2 % (11.5-15.5); WBC 8.7 k/uL (3.8-10.6)
[2021-03-18 09:49] LABS: African American GFR (CKD) >90 (>60 ml/min/1.73 sqM); Anion Gap 6 mmol/L; Blood Urea Nitrogen 14 mg/dL (7-17); Calcium 8.9 mg/dL (8.4-10.2); Carbon Dioxide 31 mmol/L (22-30); Chloride 98 mmol/L (98-107); Glucose 132 mg/dL (74-99); Non-African American GFR(CKD) >90 (>60 ml/min/1.73 sqM); Potassium 4.3 mmol/L (3.5-5.1); Sodium 135 mmol/L (137-145)
--- NOTE | 2021-03-18 09:59 | XR ---
EXAMINATION TYPE: XR chest 2V DATE OF EXAM: 03/18/2021 COMPARISON: 03/17/2021 TECHNIQUE: PA and lateral views submitted. HISTORY: Post cardiac surgery FINDINGS: Coarsened interstitium. There are chronic rib deformities. Postsurgical change involving the mediasti num and cervical spine. Small bilateral effusions with subsegmental changes. IMPRESSION: 1. Bilateral subsegmental area of infiltrate or atelectasis with interstitial pneumonitis or mild les ous congestion stable in appearance.
[2021-03-18] MEDS ORDERED: FUROSEMIDE 10 MG/ML 4 ML VIAL IV STA (10:05)
--- NOTE | 2021-03-18 10:17 | P.PN ---
Subjective Progress Note Date: 03/18/21 Principal diagnosis: Severe aortic valve stenosis. Previous medical history of hypertension, hyperlipidemia, fibromyalgia, lupus, rheumatoid arthritis, paroxysmal atrial tachycardia and fibrillation, GERD and memory impairment. POD #4 aortic valve replacement with a 23 mm Li Inspiris bioprosthetic aortic valve, clip ligation of the left atrial appendage with a 35 mm Atriclip, intraoperative transesophageal echocardiogram and removal of her left anterior chest wall loop recorder. Postoperative acute blood loss anemia, expected given hemodilution and cardiopulmonary bypass. Postoperative atrial fibrillation, known common occurrence after open heart surgery especially given patient's prior history of atrial fibrillation The patient's currently sitting up in bed on the cardiac stepdown unit in no acute distress. She does complain of postoperative chest pain, denies shortness of breath. She has been ambulatory in the hallway without difficulty. She did have a couple of hours of atrial fibrillation with rapid ventricular response yesterday afternoon, was initiated on amiodarone protocol, currently in sinus rhythm and hemodynamically stable. Continues to be on room air with oxygen saturations in the high 90s, able to achieve 1500 mL on incentive spirometry. Of note, patient had visitation from son over the weekend, subsequently patient's son tested positive for Covid, patient has not been vaccinated Objective - Vital Signs Vital signs: Vital Signs Temp 97.3 F L 03/18/21 07:44 Pulse 79 03/18/21 08:00 Resp 19 03/18/21 08:00 BP 115/69 03/18/21 07:44 Pulse Ox 93 L 03/18/21 07:44 Intake & Output 03/17/21 03/18/21 03/18/21 18:59 06:59 18:59 Intake Total 358 163.096 Output Total 1400 1350 Balance -6962 -1186.904 Weight 88.4 kg Intake: IV 10 Invasive Line 1 10 Intake, IV Titration 153.096 Amount Amiodarone 360 mg In 153.096 Dextrose 5% in Water 200 ml @ 1 MG/MIN 34.533 mls/ hr IV .Q6H PRN Rx#: [id number] Oral 358 Output: Urine 1400 1350 Other: Voiding Method Toilet Toilet Toilet # Voids 1 ABP, PAP, CO, CI - Last Documented Arterial Blood Pressure 133/60 Pulmonary Artery Pressure 23/9 Cardiac Output 4.9 Cardiac Index 2.6 - Exam CONSTITUTIONAL: Appears comfortable, cooperative, no acute distress RESPIRATORY: Lungs sounds diminished bilaterally. Respirations even, nonlabored. Currently on room air with oxygen saturation 93%. Able to achieve 1500 mL on incentive spirometry. Strong cough. CARDIOVASCULAR: S1, S2 present. Regular rate and rhythm, sinus rhythm on telemetry. Sternum stable. Palpable peripheral pulses bilaterally. No edema present. No calf pain or tenderness noted. Heart hugger in place with patient demonstrating appropriate use. Antiembolism stockings, SCDs present. GASTROINTESTINAL: Abdomen soft, nontender, nondistended. Active bowel sounds present 4 quadrants. Tolerating diet. Positive bowel movement yesterday per patient GENITOURINARY: Continues to void INTEGUMENTARY: Skin is warm and dry with evidence of good perfusion. Anterior chest incision well approximated and covered with dry intact dressing. NEUROLOGIC: Cranial nerves II through XII intact MUSKULOSKELETAL: Able to move all extremities, strength equal bilaterally, gait normal PSYCHIATRIC: Alert and oriented to person place and time, appropriate affect, intact judgment and insight INVASIVE LINES AND TUBES: A/V epicardial pacemaker wires present, grounded. - Allied health notes Allied health notes reviewed: nursing - Labs CBC & Chem 7: 03/18/21 07:47 03/18/21 07:47 Labs: Abnormal Lab Results - Last 24 Hours (Table) 03/17/21 03/17/21 03/17/21 Range/Units 11:29 16:46 19:42 RBC (3.80-5.40) m/uL Hgb (11.4-16.0) gm/dL Hct (34.0-46.0) % Sodium (137-145) mmol/L Carbon Dioxide (22-30) mmol/L Glucose (74-99) mg/dL POC Glucose (mg/dL) 117 H 144 H 153 H (75-99) mg/dL 03/18/21 03/18/21 03/18/21 Range/Units 06:07 07:47 07:47 RBC 3.37 L (3.80-5.40) m/uL Hgb 10.1 L (11.4-16.0) gm/dL Hct 31.5 L (34.0-46.0) % Sodium 135 L (137-145) mmol/L Carbon Dioxide 31 H (22-30) mmol/L Glucose 132 H (74-99) mg/dL POC Glucose (mg/dL) 130 H (75-99) mg/dL - Imaging and Cardiology Chest x-ray: report reviewed, image reviewed Assessment and Plan Assessment: 1. Severe aortic valve stenosis, status post aortic valve replacement with a 23 mm Li Inspiris bioprosthetic aortic valve 2. History of paroxysmal atrial tachycardia and fibrillation, status post clipping of her left atrial appendage and removal of loop recorder 3. Hypertension 4. Hyperlipidemia 5. Fibromyalgia 6. Lupus 7. Rheumatoid arthritis 8. GERD 9. Memory impairment 10. Lifetime nonsmoker 11. Postoperative acute blood loss anemia, expected given hemodilution and cardiopulmonary bypass pump 12. Postoperative atrial fibrillation, currently sinus 13. Exposure to Covid, no vaccination Plan: 1. Continue aspirin, statin, zetia, Plavix, beta mo. Will increase beta mo as tolerated. 2. Continue amiodarone, will transition to oral. No anticoagulation unless in each of fibrillation greater than 24 hours 3. Encourage incentive spirometry 10 times every hour while awake. Bronchodilators per pulmonology management. 4. Increase activity, ambulate as tolerated. PT/OT/cardiac rehab following. 5. Will monitor daily labs and chest x-rays. Electrolyte replacement per protocol. No transfusion. 6. GI/DVT prophylaxis. 7. Pain control with current medication regimen. 8. Insulin management per primary care service. Patient is not diabetic, hemoglobin A1c 5.7 %, although patient does need tight blood sugar control to prevent infection and promote sternal union. 9. Strict accurate intake and output, daily weights 10. Discharge planning in progress. Anticipate discharge to home with home care in the next 24-48 hours 11. Will monitor for signs and symptoms of Covid infection due to exposure from son's visitation over the weekend 12. More recommendations to follow Time with Patient: Greater than 30
--- NOTE | 2021-03-18 11:16 | P.PN ---
Subjective Progress Note Date: 03/18/21 Principal diagnosis: Severe aortic valve stenosis This is a 61-year-old white female patient with past medical history severe aortic stenosis, hypertension, hyperlipidemia, fibromyalgia, paroxysmal atrial tachycardia and fibrillation, lupus, rheumatoid arthritis and dyslipidemia. Patient follows with Dr. Freed [facility]. Patient had a recent hospitalization for chest pain. Patient was undergoing outpatient evaluation with Dr. Cam jackson for possibility of aortic valve replacement. Recent cardiac catheterization showed 40% lesion in the mid LAD, a transesophageal echocardiogram showed severe aortic stenosis with a bicuspid valve with a mean gradient 56 mmHg. His chest x-ray from 02/19/2021 showed coarsened interstitium. And normal heart size. Patient outpatient PFT showed FEV1 of 1.9 L or 88% of predicted, FVC of 2.29 or 77% of predicted, consistent with mild restriction, MVV was 74.6. On 03/14/2021 patient underwent aortic valve replacement with a 23 mm bioprosthetic valve. Patient is seen in the postoperative period in the intensive care unit, on assist control mode of ventilation with a rate of 14, tidal volume is 400, FiO2 of 50% and PEEP of 10, sedated. Postoperative blood gas showed a pO2 of 268, pCO2 45, and pH of 7.36, and this was on the 100% FiO2 and FiO2 has since been dropped down to 50%, currently hemodynamically stable although requiring small amount of clot proximal for blood pressure control, at 2 mg per hour, Diprivan is a 40 mics per kilo per minute, insulin drip is at 2 units per hour, and lactated Ringer's at 50 ML per hour. In sinus mechanism with a rate of 70 BPM. PA pressure is 20/17, with CVP of 7, cardiac output is 3.8, and cardiac index is 2.0. One mediastinal and right pleural chest tube are Y-connected together, with small amount of serosanguineous output in the Pleur-evac, no evidence of air leak, postoperative chest x-ray shows satisfactory postoperative chest x-ray, no evident pneumothorax or pleural effusion, low lung volumes, minimal basilar atelectatic changes. Postoperative labs have been noted, white blood cell count is 13.4, hemoglobin is 12.4, no significant chest tube output, patient is producing in the order of 200-300 ML per hour. On 03/15/2021 patient seen in follow-up in the intensive care unit, she was successfully weaned and extubated from the mechanical ventilator last night at 1645, and patient was successfully weaned from the mechanical ventilator within 6 hours of or exit time which was 1223. She is currently awake and alert, oriented 3, breathing comfortably, she sits up in the chair, currently on 2 L of oxygen with a pulse ox of 96%, she is working on the incentive spirometer, she has been up out of bed this morning and ambulated out of for room in the unit, tolerated activity well, hemodynamically she is stable, not requiring any vasopressor support, she is in sinus mechanism with a rate of 90 BPM, she is currently on lactated Ringer's at 30 in all per hour, insulin drip is 2.5 units per hour. Her PA pressure is 20/6, CVP is 4, her cardiac output this morning is 5.9, and cardiac index is 3.2, she has one mediastinal and right pleural chest tube with small amount of serosanguineous output, no evidence of air leak, today's chest x-ray has been reviewed showing bibasilar opacities. Labs have been reviewed, white blood cell count is 8.1, hemoglobin is 10.1, sodium is 133, there is electrolyte and renal profile were unremarkable. Pace catheter is in place, and urine output is in the order of 20-50 ML per hour, chest tube output was 325 ML in the last 24 hours. Incisions are clean dry and intact. On 03/16/2021 patient seen in follow-up in intensive care unit, today is postoperative day #2, status post aortic valve replacement. She is awake and alert, oriented 3, breathing comfortably, she is sitting up in the recliner, room air pulse ox is 85-90%, she is working on incentive spirometer, she is achieving 1000 ML on the today, she is in sinus mechanism, with a rate of 89 BPM, she is not on any vasopressor support, insulin drip has been discontinued, she is on maintenance IV fluids with lactated Ringer's at 20 ML per hour. She is complaining of moderate incisional pain, is receiving pain medications. Today's chest x-ray shows bibasilar left greater than right opacities related to basilar atelectasis, and new small left pleural effusion. Still has a mediastinal and right pleural chest tube in place and there has been 250 ML of thin serosanguineous output from the chest tubes in last 24 hours, anticipate discontinuation of the chest tube today per cardiothoracic surgery, urine output is adequate, Pace catheter is also going to be discontinued today, her PA catheter has been discontinued yesterday, hemodynamically she is been stable, no arrhythmias overnight. She has been tolerating ambulation, no nausea or vomiting, she is tolerating oral intake. Today's labs have been reviewed, white blood cell count is 12.6, hemoglobin is 10.2, sodium is 134, the rest of the electrolytes and the renal profile were unremarkable. On 03/17/2021 patient is seen in follow-up on selective care unit, today's postoperative day #3, status post aortic valve replacement. Patient is doing well, breathing currently, she is currently on room air, pulse ox is 97%, she is afebrile, hemodynamically she is stable, she is working on the incentive spirometer. She is achieving about 800 on the today. Room air pulse ox is 97%. Today's chest x-ray has been reviewed, showing no sizable pneumothorax, bilateral pleural effusions and subsegmental areas of consolidation. Chest tubes have been removed, she's been ambulating tolerating activity well. She remains in sinus mechanism, hemodynamically she has been stable. On 03/18/2021 patient seen in follow-up on selective care unit. Patient is to operative day #4, status post aortic valve replacement, last night she went into A. fib with RVR, and she was started on amiodarone infusion per protocol. She did back to sinus rhythm after, and she did feel much better. This morning she remains in sinus mechanism with a rate of 74 BPM, she is breathing comfortably, she is on room air, with pulse ox of 93%. The breathing is nonlabored, she is pulling 1.5 L on the incentive spirometer. Chest x-ray shows bilateral subsegmental areas of atelectasis with interstitial pneumonitis and mild venous congestion. She received a dose of IV Lasix per CT surgery. She has produced 2.7 L in urine output over last 24 hours, and she is in -2.2 L net fluid balance over last 24 hours. Lung sounds reveal some mild bibasilar crackles. Objective - Vital Signs Vital signs: Vital Signs Temp 97.3 F L 03/18/21 07:44 Pulse 79 03/18/21 08:00 Resp 19 03/18/21 08:00 BP 115/69 03/18/21 07:44 Pulse Ox 93 L 03/18/21 07:44 Intake & Output 03/17/21 03/18/21 03/18/21 18:59 06:59 18:59 Intake Total 358 163.096 Output Total 1400 1350 800 Balance -1042 -1186.904 -800 Weight 88.4 kg Intake: IV 10 Invasive Line 1 10 Intake, IV Titration 153.096 Amount Amiodarone 360 mg In 153.096 Dextrose 5% in Water 200 ml @ 1 MG/MIN 34.533 mls/ hr IV .Q6H PRN Rx#: [id number] Oral 358 Output: Urine 1400 1350 800 Other: Voiding Method Toilet Toilet Toilet # Voids 1 ABP, PAP, CO, CI - Last Documented Arterial Blood Pressure 133/60 Pulmonary Artery Pressure 23/9 Cardiac Output 4.9 Cardiac Index 2.6 - Exam GENERAL EXAM: Awake and alert and oriented 3, 61-year-old white female comfortable in no apparent distress. HEAD: Normocephalic/atraumatic. EYES: Normal reaction of pupils, equal size. Conjunctiva pink, sclera white. NOSE: Clear with pink turbinates. THROAT: No erythema or exudates. NECK: No masses, no JVD, no thyroid enlargement, no adenopathy. CHEST: No chest wall deformity. Symmetrical expansion. Interval removal of mediastinal and right pleural chest tubes, chest tube sites are clean dry and intact. LUNGS: Equal air entry with no crackles, wheeze, rhonchi or dullness. CVS: Regular rate and rhythm, normal S1 and S2, no gallops, no murmurs, no rubs ABDOMEN: Soft, nontender. No hepatosplenomegaly, normal bowel sounds, no guarding or rigidity. EXTREMITIES: No clubbing, no edema, no cyanosis, 2+ pulses and upper and lower extremities. MUSCULOSKELETAL: Muscle strength and tone normal. SPINE: No scoliosis or deformity SKIN: No rashes CENTRAL NERVOUS SYSTEM: Awake and alert, oriented 3 No focal deficits, tone is normal in all 4 extremities. - Labs CBC & Chem 7: 03/18/21 07:47 03/18/21 07:47 Labs: Abnormal Lab Results - Last 24 Hours (Table) 03/17/21 03/17/21 03/17/21 Range/Units 11:29 16:46 19:42 RBC (3.80-5.40) m/uL Hgb (11.4-16.0) gm/dL Hct (34.0-46.0) % Sodium (137-145) mmol/L Carbon Dioxide (22-30) mmol/L Glucose (74-99) mg/dL POC Glucose (mg/dL) 117 H 144 H 153 H (75-99) mg/dL 03/18/21 03/18/21 03/18/21 Range/Units 06:07 07:47 07:47 RBC 3.37 L (3.80-5.40) m/uL Hgb 10.1 L (11.4-16.0) gm/dL Hct 31.5 L (34.0-46.0) % Sodium 135 L (137-145) mmol/L Carbon Dioxide 31 H (22-30) mmol/L Glucose 132 H (74-99) mg/dL POC Glucose (mg/dL) 130 H (75-99) mg/dL Assessment and Plan Plan: Assessment: #1. Severe aortic stenosis, status post aortic valve replacement, on 03/14/2021, postoperative day #4 #2. Routine ventilator management, patient successfully weaned and extubated within 6 hours of OR exit time on 03/14/2021 #3. History of bicuspid aortic stenosis #4. Hypertension #5. Fibromyalgia #6. History of ulcerative colitis #7. Lupus #8. Paroxysmal atrial tachycardia and fibrillation #9. Post-operative A. fib with RVR, patient is currently back in sinus mechanism after being initiated on amiodarone infusion per protocol Plan: Today's chest x-ray has been reviewed Received a dose of Lasix Currently back in sinus mechanism She is on amiodarone infusion Encouraged deep breathing and coughing Chest tubes have been removed Vital signs are stable We'll continue to follow I performed a history & physical examination of the patient and discussed their management with my nurse practitioner, Stephania Ying. I reviewed the nurse pr actitioner's note and agree with the documented findings and plan of care. Lung sounds are positive for diminished breath sounds throughout the lung beach. The findings and the impression was discussed with the patient. I attest to the documentation by the nurse practitioner. Time with Patient: Less than 30
[2021-03-18] MEDS: EZETIMIBE 10 MG TAB PO SCH (11:18)
[2021-03-18 12:04] LABS: Glucose,Whole Blood 128 mg/dL (75-99)
[2021-03-18] MEDS: diazePAM 2 MG TAB PO PRN ×2 (12:50→22:33)
--- NOTE | 2021-03-18 13:19 | P.PN ---
Subjective This is a pleasant 61 years old female with past medical history of hypertension, hyperlipidemia, migraine headache, rheumatoid arthritis, ulcerativ e colitis, lupus, pancreatitis. History of anxiety. Patient was admitted for severe aortic valve stenosis status post aortic valve replacement with bioprosthetic aortic valve. Today is postoperative day #1. Patient today is lying in chair in the ICU, still in distress due to pain at the surgical site. She is hemodynamically stable Glucose control CBC and BMP and liver enzymes are unremarkable Patient is currently is on aspirin, Plavix, Zetia and metoprolol 03/16/2021 Patient generally doing well, this chest pain. No respiratory symptoms. Chest Place. She Is Hemodynamically Stable, Oxygen Saturation Long 90s. Mild Leukocytosis Mostly Reactive at 12.5 K. Hemoglobin Stable at 10.2. She Is Getting 1-2 Units of Insulin Every Hour, and Is on Diet, She Is with Hemoglobin A1c of 5.7%, Discussed with the Staff Patient Consultation to Insulin Sliding Scale. Normal bowel movement but she does not want laxative Several consultants on the case 03/17/2021 Patient is awake and alert, she is complaining of from some pain at surgical site. She is hemodynamically stable Labs showed only mild leukocytosis which is stable. Sugar is controlled 117-127 today She remains on aspirin and Plavix, metoprolol 03/18/2021 Patient was doing well and clinically stable however overnight she developed tachycardia with a heart rate around 170 secondary to A. fib with RVR Patient currently her heart rate is controlled Y on amiodarone drip Chest x-ray repeated today showing bilateral infiltrates suspicious for atelectasis. Most likely secondary to fluid, 1 dose of IV Lasix. WBC back to normal today Sugars controlled BMP and CBC other than that are unremarkable. Current cardiac medication like aspirin and Plavix, metoprolol and lisinopril Objective - Vital Signs Vital signs: Vital Signs Temp 98.8 F 03/18/21 11:43 Pulse 70 03/18/21 11:45 Resp 18 03/18/21 11:43 BP 120/78 03/18/21 11:43 Pulse Ox 97 03/18/21 11:43 Intake & Output 03/17/21 03/18/21 03/18/21 18:59 06:59 18:59 Intake Total 358 163.096 Output Total 1400 1350 800 Balance -1042 -1186.904 -800 Weight 88.4 kg Intake: IV 10 Invasive Line 1 10 Intake, IV Titration 153.096 Amount Amiodarone 360 mg In 153.096 Dextrose 5% in Water 200 ml @ 1 MG/MIN 34.533 mls/ hr IV .Q6H PRN Rx#: [id number] Oral 358 Output: Urine 1400 1350 800 Other: Voiding Method Toilet Toilet Toilet # Voids 1 ABP, PAP, CO, CI - Last Documented Arterial Blood Pressure 133/60 Pulmonary Artery Pressure 23/9 Cardiac Output 4.9 Cardiac Index 2.6 - Exam GENERAL: The patient is alert and oriented x3, not in any acute distress. Well developed, well nourished. HEENT: Pupils are round and equally reacting to light. EOMI. No scleral icterus. No conjunctival pallor. Normocephalic, atraumatic. No pharyngeal erythema. No thyromegaly. -CARDIOVASCULAR: S1 and S2 present. No murmurs, rubs, or gallops. Chest wall wound with dressing is in place, we will defer the rest of the exam to surgical team PULMONARY: Chest is clear to auscultation, no wheezing or crackles. ABDOMEN: Soft, nontender, nondistended, normoactive bowel sounds. No palpable organomegaly. MUSCULOSKELETAL: No joint swelling or deformity. EXTREMITIES: No cyanosis, clubbing, or pedal edema. NEUROLOGICAL: Gross neurological examination did not reveal any focal deficits. SKIN: No rashes. No petechiae - Labs CBC & Chem 7: 03/18/21 07:47 03/18/21 07:47 Labs: Abnormal Lab Results - Last 24 Hours (Table) 03/17/21 03/17/21 03/18/21 Range/Units 16:46 19:42 06:07 RBC (3.80-5.40) m/uL Hgb (11.4-16.0) gm/dL Hct (34.0-46.0) % Sodium (137-145) mmol/L Carbon Dioxide (22-30) mmol/L Glucose (74-99) mg/dL POC Glucose (mg/dL) 144 H 153 H 130 H (75-99) mg/dL 03/18/21 03/18/21 03/18/21 Range/Units 07:47 07:47 12:01 RBC 3.37 L (3.80-5.40) m/uL Hgb 10.1 L (11.4-16.0) gm/dL Hct 31.5 L (34.0-46.0) % Sodium 135 L (137-145) mmol/L Carbon Dioxide 31 H (22-30) mmol/L Glucose 132 H (74-99) mg/dL POC Glucose (mg/dL) 128 H (75-99) mg/dL Assessment and Plan Assessment: Severe aortic valve disease status post aortic valve replacement with bioprosthetic valve Hypertension Hyperlipidemia History of migraine headache History of rheumatoid arthritis History of ulcerative colitis History of lupus History of pancreatitis Plan: This is a pleasant 61 years old female who presents for aortic valve replacement. Patient currently kept in the ICU, she is on aspirin, Plavix, metoprolol and Zetia. Monitor glucose with insulin sliding scale Cardiothoracic surgery team, pulmonary team and cardiology team on the case Labs and medication were reviewed.. Continue same treatment. Continue with symptomatic treatment. Resume home medication. Monitor lytes and vitals. DVT and GI prophylaxis. Further recommendations depends on the clinical course of the patient DVT prophylaxis: Subcutaneous heparin GI Prophylaxis: Ppi Prognosis is guarded
--- NOTE | 2021-03-18 13:59 | P.PN ---
Subjective Patient is a pleasant 61 year old female with a past medical history of hypertension, hyperlipidemia, fibromyalgia, lupus, rheumatoid arthritis, paro xysmal atrial tachycardia vs fibrillation and had a loop recorder placed in 06/2016, GERD and memory impairment. Follows in the office with Dr. Mcneill. Patient is POD #4 aortic valve replacement on 03/14/2021. Patient seen and examined this morning at bedside. No acute distress. Yesterday afternoon around 5pm, patient went into atrial fibrillation with RVR HR 170s, she was initiated on amiodarone protocol, telemetry reviewed patient was in atrial fibrillation and 2:1 atrial flutter around 10pm. She was symptomatic felt some black spotting in her eyes and did not feel well. Currently she is feel fine with no complaints. She is currently in sinus rhythm and hemodynamically stable. Blood p ressure 120/78, heart rate 68, afebrile, maintaining oxygen saturation is on room air. Laboratory data reviewed, WBC 8.7, hemoglobin 10.1, platelets 302, sodium 135, potassium 4.3, BUN 14, serum creatinine 0.7. Patient currently maintained on amiodarone 400 mg twice a day aspirin 325 mg daily, atorvastatin 40 mg daily, Plavix 75 mg daily, that he had 10 mg daily, metoprolol tartrate 25 mg 3 times a day. She is currently maintaining sinus mechanism. Loop recorder device check on 01/20/2021 revealed no new observations since 12/20/2019, no atrial fibrillation or tachycardia. Since the loop recorder was placed, no evidence of atrial fibrillation or atrial tachycardia. There were 2 episodes of tachycardia and 10 episodes of bradycardia. GENERAL: Well-appearing, well-nourished and in no acute distress. NECK: Supple without JVD or thyromegaly. LUNGS: Breath sounds clear to auscultation bilaterally. Respiration equal and unlabored. No wheezes, rales or rhonchi. HEART: Regular rate and rhythm without murmurs, rubs or gallops. S1 and S2 heard. Anterior chest incision covered with dressing is dry and intact. EXTREMITIES: Normal range of motion, no edema. No clubbing or cyanosis. Teresita pheral pulses intact. ASSESSMENT Severe aortic stenosis Status post aortic valve replacement Postoperative atrial fibrillation, currently sinus History of paroxysmal atrial tachycardia vs atrial fibrillation status post clipping of her left atrial appendage and removal of loop recorder. History of hypertension History of hyperlipidemia PLAN Continue current present medical therapy with aspirin, statin, Zetia, Plavix and beta mo. Anticoagulation on hold at this time and can be addressed as an outpatient Encourage incentive spirometry and increase activity as tolerated. Primary management from cardiothoracic surgery We will continue to follow. Further recommendations based on clinical course. Patient to follow up as an outpatient with Dr. Mcneill Nurse Practitioner note has been reviewed, I agree with a documented findings and plan of care. Patient was seen and examined. Objective - Vital Signs Vital signs: Vital Signs Temp 98.8 F 03/18/21 11:43 Pulse 68 03/18/21 13:34 Resp 18 03/18/21 13:34 BP 120/78 03/18/21 11:43 Pulse Ox 97 03/18/21 11:43 Intake & Output 03/17/21 03/18/21 03/18/21 18:59 06:59 18:59 Intake Total 358 163.096 Output Total 1400 1350 800 Balance -1042 -1186.904 -800 Weight 88.4 kg Intake: IV 10 Invasive Line 1 10 Intake, IV Titration 153.096 Amount Amiodarone 360 mg In 153.096 Dextrose 5% in Water 200 ml @ 1 MG/MIN 34.533 mls/ hr IV .Q6H PRN Rx#: [id number] Oral 358 Output: Urine 1400 1350 800 Other: Voiding Method Toilet Toilet Toilet # Voids 1 ABP, PAP, CO, CI - Last Documented Arterial Blood Pressure 133/60 Pulmonary Artery Pressure 23/9 Cardiac Output 4.9 Cardiac Index 2.6 - Labs CBC & Chem 7: 03/18/21 07:47 03/18/21 07:47 Labs: Abnormal Lab Results - Last 24 Hours (Table) 03/17/21 03/17/21 03/18/21 Range/Units 16:46 19:42 06:07 RBC (3.80-5.40) m/uL Hgb (11.4-16.0) gm/dL Hct (34.0-46.0) % Sodium (137-145) mmol/L Carbon Dioxide (22-30) mmol/L Glucose (74-99) mg/dL POC Glucose (mg/dL) 144 H 153 H 130 H (75-99) mg/dL 03/18/21 03/18/21 03/18/21 Range/Units 07:47 07:47 12:01 RBC 3.37 L (3.80-5.40) m/uL Hgb 10.1 L (11.4-16.0) gm/dL Hct 31.5 L (34.0-46.0) % Sodium 135 L (137-145) mmol/L Carbon Dioxide 31 H (22-30) mmol/L Glucose 132 H (74-99) mg/dL POC Glucose (mg/dL) 128 H (75-99) mg/dL
[2021-03-18] MEDS: ONDANSETRON 4 MG/2 ML VIAL IVP PRN (15:50)
[2021-03-18 17:14] LABS: Glucose,Whole Blood 135 mg/dL (75-99)
[2021-03-18 20:05] LABS: Glucose,Whole Blood 154 mg/dL (75-99)
[2021-03-18] MEDS: SENNOSIDES-DOCUSATE SODIUM 1 EACH TAB PO SCH (21:12)
[2021-03-19 06:45] LABS: Glucose,Whole Blood 133 mg/dL (75-99)
[2021-03-19] MEDS: PANTOPRAZOLE 40 MG TABLET PO SCH (06:50)
[2021-03-19] MEDS: INSULIN ASPART (NovoLOG) 100 UNIT/ML VIAL SQ SCH ×3 (06:51→17:50)
[2021-03-19 07:25] LABS: HCT 26.8 % (34.0-46.0); HGB 9.3 gm/dL (11.4-16.0); MCH 32.2 pg (25.0-35.0); MCHC 34.6 g/dL (31.0-37.0); Mean Platelet Volume 7.8; Platelet Count 290 k/uL (150-450); RBC 2.88 m/uL (3.80-5.40); RDW 13.1 % (11.5-15.5); WBC 6.2 k/uL (3.8-10.6)
[2021-03-19 07:39] LABS: African American GFR (CKD) >90 (>60 ml/min/1.73 sqM); Anion Gap 4 mmol/L; Blood Urea Nitrogen 13 mg/dL (7-17); Calcium 8.5 mg/dL (8.4-10.2); Carbon Dioxide 33 mmol/L (22-30); Chloride 97 mmol/L (98-107); Glucose 136 mg/dL (74-99); Non-African American GFR(CKD) 82 (>60 ml/min/1.73 sqM); Potassium 3.8 mmol/L (3.5-5.1); Sodium 134 mmol/L (137-145)
[2021-03-19] MEDS: IPRATROPIUM-ALBUTEROL 3 ML NEB INHALATION SCH ×3 (07:42→15:16)
--- NOTE | 2021-03-19 08:23 | P.PN ---
Subjective Progress Note Date: 03/19/21 Principal diagnosis: Severe aortic valve stenosis. Previous medical history of hypertension, hyperlipidemia, fibromyalgia, lupus, rheumatoid arthritis, paroxysmal atrial tachycardia and fibrillation, GERD and memory impairment. POD #5 aortic valve replacement with a 23 mm Li Inspiris bioprosthetic aortic valve, clip ligation of the left atrial appendage with a 35 mm Atriclip, intraoperative transesophageal echocardiogram and removal of her left anterior chest wall loop recorder. Postoperative acute blood loss anemia, expected given hemodilution and cardiopulmonary bypass. Postoperative atrial fibrillation, known common occurrence after open heart surgery especially given patient's prior history of atrial fibrillation The patient's currently sitting up in a recliner on the cardiac stepdown unit in no acute distress. She does complain of postoperative chest pain but states controlled on current medication regimen, denies shortness of breath. She has been ambulatory in the hallway without difficulty. Remains in sinus rhythm and hemodynamically stable. Continues to be on room air with oxygen saturations in the high 90s, able to achieve 1500 mL on incentive spirometry. Of note, patient had visitation from son over the weekend, subsequently patient's son tested positive for Covid, patient has not been vaccinated Objective - Vital Signs Vital signs: Vital Signs Temp 98.6 F 03/19/21 04:00 Pulse 76 03/19/21 04:00 Resp 17 03/19/21 04:00 BP 134/65 03/19/21 04:00 Pulse Ox 94 L 03/19/21 04:00 Intake & Output 03/18/21 03/19/21 03/19/21 18:59 06:59 18:59 Intake Total 490 46.112 Output Total 1300 600 Balance -810 -553.888 Weight 85.7 kg Intake: Intake, IV Titration 250 46.112 Amount Amiodarone 450 mg In 250 46.112 Dextrose 5% in Water 250 ml @ 0.5 MG/MIN 16.667 mls/hr IV .Q15H PRN Rx#: [id number] Oral 240 Output: Urine 1300 600 Other: Voiding Method Toilet Toilet # Voids 2 ABP, PAP, CO, CI - Last Documented Arterial Blood Pressure 133/60 Pulmonary Artery Pressure 23/9 Cardiac Output 4.9 Cardiac Index 2.6 - Exam CONSTITUTIONAL: Appears comfortable, cooperative, no acute distress RESPIRATORY: Lungs sounds diminished bilaterally. Respirations even, nonlabored. Currently on room air with oxygen saturation 93%. Able to achieve 1500 mL on incentive spirometry. Strong cough. CARDIOVASCULAR: S1, S2 present. Regular rate and rhythm, sinus rhythm on telemetry. Sternum stable. Palpable peripheral pulses bilaterally. No edema present. No calf pain or tenderness noted. Heart hugger in place with patient demonstrating appropriate use. Antiembolism stockings, SCDs present. GASTROINTESTINAL: Abdomen soft, nontender, nondistended. Active bowel sounds present 4 quadrants. Tolerating diet. Positive bowel movement per patient GENITOURINARY: Continues to void INTEGUMENTARY: Skin is warm and dry with evidence of good perfusion. Anterior chest incision well approximated NEUROLOGIC: Cranial nerves II through XII intact MUSKULOSKELETAL: Able to move all extremities, strength equal bilaterally, gait normal PSYCHIATRIC: Alert and oriented to person place and time, appropriate affect, intact judgment and insight - Allied health notes Allied health notes reviewed: nursing - Labs CBC & Chem 7: 03/19/21 06:19 03/19/21 06:19 Labs: Abnormal Lab Results - Last 24 Hours (Table) 03/18/21 03/18/21 03/18/21 Range/Units 07:47 07:47 12:01 RBC 3.37 L (3.80-5.40) m/uL Hgb 10.1 L (11.4-16.0) gm/dL Hct 31.5 L (34.0-46.0) % Sodium 135 L (137-145) mmol/L Carbon Dioxide 31 H (22-30) mmol/L Glucose 132 H (74-99) mg/dL POC Glucose (mg/dL) 128 H (75-99) mg/dL 03/18/21 03/18/21 03/19/21 Range/Units 17:12 20:04 06:19 RBC 2.88 L (3.80-5.40) m/uL Hgb 9.3 L (11.4-16.0) gm/dL Hct 26.8 L (34.0-46.0) % Sodium (137-145) mmol/L Carbon Dioxide (22-30) mmol/L Glucose (74-99) mg/dL POC Glucose (mg/dL) 135 H 154 H (75-99) mg/dL 03/19/21 Range/Units 06:44 RBC (3.80-5.40) m/uL Hgb (11.4-16.0) gm/dL Hct (34.0-46.0) % Sodium (137-145) mmol/L Carbon Dioxide (22-30) mmol/L Glucose (74-99) mg/dL POC Glucose (mg/dL) 133 H (75-99) mg/dL - Imaging and Cardiology Chest x-ray: image reviewed Assessment and Plan Assessment: 1. Severe aortic valve stenosis, status post aortic valve replacement with a 23 mm Li Inspiris bioprosthetic aortic valve 2. History of paroxysmal atrial tachycardia and fibrillation, status post clipping of her left atrial appendage and removal of loop recorder 3. Hypertension 4. Hyperlipidemia 5. Fibromyalgia 6. Lupus 7. Rheumatoid arthritis 8. GERD 9. Memory impairment 10. Lifetime nonsmoker 11. Postoperative acute blood loss anemia, expected given hemodilution and cardiopulmonary bypass pump 12. Postoperative atrial fibrillation, currently sinus 13. Exposure to Covid, no vaccination Plan: 1. Continue aspirin, statin, zetia, Plavix, beta mo. Will increase beta mo as tolerated. 2. Continue amiodarone, will taper dose at discharge. No anticoagulation unless in each of fibrillation greater than 24 hours 3. Encourage incentive spirometry 10 times every hour while awake. Bronchodilators per pulmonology management. 4. Increase activity, ambulate as tolerated. PT/OT/cardiac rehab following. 5. Will monitor daily labs and chest x-rays. Electrolyte replacement per protocol. No transfusion. 6. GI/DVT prophylaxis. 7. Pain control with current medication regimen. 8. Insulin management per primary care service. Patient is not diabetic, hemoglobin A1c 5.7 %, although patient does need tight blood sugar control to prevent infection and promote sternal union. 9. Strict accurate intake and output, daily weights 10. Discharge planning in progress. Anticipate discharge to home with home care this afternoon 11. Will monitor for signs and symptoms of Covid infection due to exposure from son's visitation over the weekend 12. More recommendations to follow Time with Patient: Greater than 30
[2021-03-19] MEDS ORDERED: FUROSEMIDE 10 MG/ML 2 ML VIAL IV ONE (08:29)
[2021-03-19] MEDS ORDERED: POTASSIUM CHLORIDE ER 20 MEQ TAB.ER PO STA (08:30)
[2021-03-19] MEDS: ASPIRIN 325 MG TAB PO SCH (09:01)
[2021-03-19] MEDS: AMIODARONE 200 MG TAB PO SCH (09:03)
[2021-03-19] MEDS: FOLIC ACID 1 MG TAB PO SCH (09:03)
[2021-03-19] MEDS: METOPROLOL TARTRATE 25 MG TAB PO SCH ×2 (09:04→15:26)
[2021-03-19] MEDS: HEPARIN SODIUM,PORCINE/PF 5,000 UNIT/0.5 ML SYRINGE SQ SCH ×2 (09:04→15:26)
[2021-03-19] MEDS: ATORVASTATIN 40 MG TAB PO SCH (09:04)
[2021-03-19] MEDS: CLOPIDOGREL 75 MG TAB PO SCH (09:04)
--- NOTE | 2021-03-19 09:11 | XR ---
EXAMINATION TYPE: XR chest 2V DATE OF EXAM: 03/19/2021 COMPARISON: 03/18/2021 TECHNIQUE: PA and lateral views submitted. HISTORY: Post cardiac surgery FINDINGS: Heart is enlarged and there is bilateral pleural effusions with diffuse interstitial pattern. Postsur gical change overlying the mediastinum and cervical spine. No pneumothorax. Chronic rib deformity see n. IMPRESSION: 1. Correlate for mild CHF otherwise consider interstitial pneumonitis. Findings stable.
[2021-03-19 11:40] VITALS: RESP 18; TEMP 98.5
--- NOTE | 2021-03-19 11:47 | P.PN ---
Subjective Patient is a pleasant 61 year old female with a past medical history of hypertension, hyperlipidemia, fibromyalgia, lupus, rheumatoid arthritis, paro xysmal atrial tachycardia vs fibrillation and had a loop recorder placed in 06/2016, GERD and memory impairment. Follows in the office with Dr. Mcneill. Patient is POD #5 aortic valve replacement on 03/14/2021. Patient seen and examined this morning at bedside. No acute distress. 03/17/21 around 5pm, patient went into atrial fibrillation with RVR HR 170s, she was initiated on amiodarone protocol, telemetry reviewed patient was in atrial fibrillation and 2:1 atrial flutter until around 10pm. She was symptomatic felt some black spotting in her eyes and did not feel well. She has not been in atrial fibrillation since. Currently she is feel fine, feels a little weak. She is currently in sinus rhythm and hemodynamically stable. blood pressure 120/59, heart rate 71, afebrile, maintaining oxygen saturations on room air. Laboratory data reviewed, WBC 6.2, hemoglobin 9.3, platelets 290, sodium 134, potassium 3.8, BUN 13, serum creatinine 0.7, magnesium 2.0 Patient currently maintained on amiodarone 400 mg twice a day aspirin 325 mg daily, atorvastatin 40 mg daily, Plavix 75 mg daily, that he had 10 mg daily, metoprolol tartrate 25 mg 3 times a day. She is currently maintaining sinus mechanism. Loop recorder device check on 01/20/2021 revealed no new observations since 12/20/2019, no atrial fibrillation or tachycardia. Since the loop recorder was placed, no evidence of atrial fibrillation or atrial tachycardia. There were 2 episodes of tachycardia and 10 episodes of bradycardia. GENERAL: Well-appearing, well-nourished and in no acute distress. NECK: Supple without JVD or thyromegaly. LUNGS: Breath sounds clear to auscultation bilaterally. Respiration equal and unlabored. No wheezes, rales or rhonchi. HEART: Regular rate and rhythm without murmurs, rubs or gallops. S1 and S2 heard. Anterior chest incision covered with dressing is dry and intact. EXTREMITIES: Normal range of motion, no edema. No clubbing or cyanosis. Peripheral pulses intact. ASSESSMENT Severe aortic stenosis Status post aortic valve replacement Postoperative atrial fibrillation, currently sinus History of paroxysmal atrial tachycardia vs atrial fibrillation status post clipping of her left atrial appendage and removal of loop recorder. History of hypertension History of hyperlipidemia PLAN Continue current present medical therapy with amiodarone, aspirin, statin, Zetia, Plavix and beta mo. Anticoagulation on hold at this time and can be addressed as an outpatient Encourage incentive spirometry and increase activity as tolerated. Primary management from cardiothoracic surgery We will continue to follow until discharge which patient may be discharged home later this afternoon. Patient to follow up as an outpatient with Dr. Mcneill Nurse Practitioner note has been reviewed, I agree with a documented findings and plan of care. Patient was seen and examined. Objective - Vital Signs Vital signs: Vital Signs Temp 98.5 F 03/19/21 11:39 Pulse 63 03/19/21 11:39 Resp 18 03/19/21 11:39 BP 107/55 03/19/21 11:39 Pulse Ox 100 03/19/21 11:39 Intake & Output 03/18/21 03/19/21 03/19/21 18:59 06:59 18:59 Intake Total 490 46.112 Output Total 1300 600 Balance -810 -553.888 Weight 85.7 kg Intake: Intake, IV Titration 250 46.112 Amount Amiodarone 450 mg In 250 46.112 Dextrose 5% in Water 250 ml @ 0.5 MG/MIN 16.667 mls/hr IV .Q15H PRN Rx#: [id number] Oral 240 Output: Urine 1300 600 Other: Voiding Method Toilet Toilet Toilet # Voids 2 ABP, PAP, CO, CI - Last Documented Arterial Blood Pressure 133/60 Pulmonary Artery Pressure 23/9 Cardiac Output 4.9 Cardiac Index 2.6 - Labs CBC & Chem 7: 03/19/21 06:19 03/19/21 06:19 Labs: Abnormal Lab Results - Last 24 Hours (Table) 03/18/21 03/18/21 03/18/21 Range/Units 12:01 17:12 20:04 RBC (3.80-5.40) m/uL Hgb (11.4-16.0) gm/dL Hct (34.0-46.0) % Sodium (137-145) mmol/L Chloride (98-107) mmol/L Carbon Dioxide (22-30) mmol/L Glucose (74-99) mg/dL POC Glucose (mg/dL) 128 H 135 H 154 H (75-99) mg/dL 03/19/21 03/19/21 03/19/21 Range/Units 06:19 06:19 06:44 RBC 2.88 L (3.80-5.40) m/uL Hgb 9.3 L (11.4-16.0) gm/dL Hct 26.8 L (34.0-46.0) % Sodium 134 L (137-145) mmol/L Chloride 97 L (98-107) mmol/L Carbon Dioxide 33 H (22-30) mmol/L Glucose 136 H (74-99) mg/dL POC Glucose (mg/dL) 133 H (75-99) mg/dL
[2021-03-19 12:00] LABS: Glucose,Whole Blood 137 mg/dL (75-99)
[2021-03-19] MEDS: EZETIMIBE 10 MG TAB PO SCH (12:13)
--- NOTE | 2021-03-19 13:32 | P.PN ---
Subjective Progress Note Date: 03/19/21 Principal diagnosis: Severe aortic valve stenosis This is a 61-year-old white female patient with past medical history severe aortic stenosis, hypertension, hyperlipidemia, fibromyalgia, paroxysmal atrial tachycardia and fibrillation, lupus, rheumatoid arthritis and dyslipidemia. Patient follows with Dr. [facility]ed [facility]. Patient had a recent hospitalization for chest pain. Patient was undergoing outpatient evaluation with Dr. Cam jackson for possibility of aortic valve replacement. Recent cardiac catheterization showed 40% lesion in the mid LAD, a transesophageal echocardiogram showed severe aortic stenosis with a bicuspid valve with a mean gradient 56 mmHg. His chest x-ray from 02/19/2021 showed coarsened interstitium. And normal heart size. Patient outpatient PFT showed FEV1 of 1.9 L or 88% of predicted, FVC of 2.29 or 77% of predicted, consistent with mild restriction, MVV was 74.6. On 03/14/2021 patient underwent aortic valve replacement with a 23 mm bioprosthetic valve. Patient is seen in the postoperative period in the intensive care unit, on assist control mode of ventilation with a rate of 14, tidal volume is 400, FiO2 of 50% and PEEP of 10, sedated. Postoperative blood gas showed a pO2 of 268, pCO2 45, and pH of 7.36, and this was on the 100% FiO2 and FiO2 has since been dropped down to 50%, currently hemodynamically stable although requiring small amount of clot proximal for blood pressure control, at 2 mg per hour, Diprivan is a 40 mics per kilo per minute, insulin drip is at 2 units per hour, and lactated Ringer's at 50 ML per hour. In sinus mechanism with a rate of 70 BPM. PA pressure is 20/17, with CVP of 7, cardiac output is 3.8, and cardiac index is 2.0. One mediastinal and right pleural chest tube are Y-connected together, with small amount of serosanguineous output in the Pleur-evac, no evidence of air leak, postoperative chest x-ray shows satisfactory postoperative chest x-ray, no evident pneumothorax or pleural effusion, low lung volumes, minimal basilar atelectatic changes. Postoperative labs have been noted, white blood cell count is 13.4, hemoglobin is 12.4, no significant chest tube output, patient is producing in the order of 200-300 ML per hour. On 03/15/2021 patient seen in follow-up in the intensive care unit, she was successfully weaned and extubated from the mechanical ventilator last night at 1645, and patient was successfully weaned from the mechanical ventilator within 6 hours of or exit time which was 1223. She is currently awake and alert, oriented 3, breathing comfortably, she sits up in the chair, currently on 2 L of oxygen with a pulse ox of 96%, she is working on the incentive spirometer, she has been up out of bed this morning and ambulated out of for room in the unit, tolerated activity well, hemodynamically she is stable, not requiring any vasopressor support, she is in sinus mechanism with a rate of 90 BPM, she is currently on lactated Ringer's at 30 in all per hour, insulin drip is 2.5 units per hour. Her PA pressure is 20/6, CVP is 4, her cardiac output this morning is 5.9, and cardiac index is 3.2, she has one mediastinal and right pleural chest tube with small amount of serosanguineous output, no evidence of air leak, today's chest x-ray has been reviewed showing bibasilar opacities. Labs have been reviewed, white blood cell count is 8.1, hemoglobin is 10.1, sodium is 133, there is electrolyte and renal profile were unremarkable. Pace catheter is in place, and urine output is in the order of 20-50 ML per hour, chest tube output was 325 ML in the last 24 hours. Incisions are clean dry and intact. On 03/16/2021 patient seen in follow-up in intensive care unit, today is postoperative day #2, status post aortic valve replacement. She is awake and alert, oriented 3, breathing comfortably, she is sitting up in the recliner, room air pulse ox is 85-90%, she is working on incentive spirometer, she is achieving 1000 ML on the today, she is in sinus mechanism, with a rate of 89 BPM, she is not on any vasopressor support, insulin drip has been discontinued, she is on maintenance IV fluids with lactated Ringer's at 20 ML per hour. She is complaining of moderate incisional pain, is receiving pain medications. Today's chest x-ray shows bibasilar left greater than right opacities related to basilar atelectasis, and new small left pleural effusion. Still has a mediastinal and right pleural chest tube in place and there has been 250 ML of thin serosanguineous output from the chest tubes in last 24 hours, anticipate discontinuation of the chest tube today per cardiothoracic surgery, urine output is adequate, Pace catheter is also going to be discontinued today, her PA catheter has been discontinued yesterday, hemodynamically she is been stable, no arrhythmias overnight. She has been tolerating ambulation, no nausea or vomiting, she is tolerating oral intake. Today's labs have been reviewed, white blood cell count is 12.6, hemoglobin is 10.2, sodium is 134, the rest of the electrolytes and the renal profile were unremarkable. On 03/17/2021 patient is seen in follow-up on selective care unit, today's postoperative day #3, status post aortic valve replacement. Patient is doing well, breathing currently, she is currently on room air, pulse ox is 97%, she is afebrile, hemodynamically she is stable, she is working on the incentive spirometer. She is achieving about 800 on the today. Room air pulse ox is 97%. Today's chest x-ray has been reviewed, showing no sizable pneumothorax, bilateral pleural effusions and subsegmental areas of consolidation. Chest tubes have been removed, she's been ambulating tolerating activity well. She remains in sinus mechanism, hemodynamically she has been stable. On 03/18/2021 patient seen in follow-up on selective care unit. Patient is to operative day #4, status post aortic valve replacement, last night she went into A. fib with RVR, and she was started on amiodarone infusion per protocol. She did back to sinus rhythm after, and she did feel much better. This morning she remains in sinus mechanism with a rate of 74 BPM, she is breathing comfortably, she is on room air, with pulse ox of 93%. The breathing is nonlabored, she is pulling 1.5 L on the incentive spirometer. Chest x-ray shows bilateral subsegmental areas of atelectasis with interstitial pneumonitis and mild venous congestion. She received a dose of IV Lasix per CT surgery. She has produced 2.7 L in urine output over last 24 hours, and she is in -2.2 L net fluid balance over last 24 hours. Lung sounds reveal some mild bibasilar crackles. On 03/19/2021 patient seen in follow-up on selective care unit, status postoperative day #5, status post aortic valve replacement. She is awake and alert, in no acute distress, she is oriented 3, she sitting up in the recliner, she is breathing comfortably, she is on room air with a pulse ox 100%, she remains in sinus mechanism, she's been afebrile, blood pressures been stable. Her incisions are clean dry and intact. Today's chest x-ray shows bilateral pleural effusions and diffuse interstitial pattern consistent with fluid overload and mild CHF exacerbation. She has been transitioned to oral amiodarone 4 brief episode of A. fib RVR on her postoperative day #3. She has maintained sinus mechanism, she did receive an additional dose of IV Lasix today. Chest tubes have been discontinued. Patient has been tolerating a blation, she has had no acute events overnight. Today's labs have been reviewed Objective - Vital Signs Vital signs: Vital Signs Temp 98.5 F 03/19/21 11:39 Pulse 63 03/19/21 11:39 Resp 18 03/19/21 11:39 BP 107/55 03/19/21 11:39 Pulse Ox 100 03/19/21 11:39 Intake & Output 03/18/21 03/19/21 03/19/21 18:59 06:59 18:59 Intake Total 490 46.112 Output Total 1300 600 Balance -810 -553.888 Weight 85.7 kg Intake: Intake, IV Titration 250 46.112 Amount Amiodarone 450 mg In 250 46.112 Dextrose 5% in Water 250 ml @ 0.5 MG/MIN 16.667 mls/hr IV .Q15H PRN Rx#: [id number] Oral 240 Output: Urine 1300 600 Other: Voiding Method Toilet Toilet Toilet # Voids 2 ABP, PAP, CO, CI - Last Documented Arterial Blood Pressure 133/60 Pulmonary Artery Pressure 23/9 Cardiac Output 4.9 Cardiac Index 2.6 - Exam GENERAL EXAM: Awake and alert and oriented 3, 61-year-old white female comfortable in no apparent distress. HEAD: Normocephalic/atraumatic. EYES: Normal reaction of pupils, equal size. Conjunctiva pink, sclera white. NOSE: Clear with pink turbinates. THROAT: No erythema or exudates. NECK: No masses, no JVD, no thyroid enlargement, no adenopathy. CHEST: No chest wall deformity. Symmetrical expansion. Interval removal of mediastinal and right pleural chest tubes, chest tube sites are clean dry and intact. LUNGS: Equal air entry with no crackles, wheeze, rhonchi or dullness. CVS: Regular rate and rhythm, normal S1 and S2, no gallops, no murmurs, no rubs ABDOMEN: Soft, nontender. No hepatosplenomegaly, normal bowel sounds, no guarding or rigidity. EXTREMITIES: No clubbing, no edema, no cyanosis, 2+ pulses and upper and lower extremities. MUSCULOSKELETAL: Muscle strength and tone normal. SPINE: No scoliosis or deformity SKIN: No rashes CENTRAL NERVOUS SYSTEM: Awake and alert, oriented 3 No focal deficits, tone is normal in all 4 extremities. - Labs CBC & Chem 7: 03/19/21 06:19 03/19/21 06:19 Labs: Abnormal Lab Results - Last 24 Hours (Table) 03/18/21 03/18/21 03/19/21 Range/Units 17:12 20:04 06:19 RBC 2.88 L (3.80-5.40) m/uL Hgb 9.3 L (11.4-16.0) gm/dL Hct 26.8 L (34.0-46.0) % Sodium (137-145) mmol/L Chloride (98-107) mmol/L Carbon Dioxide (22-30) mmol/L Glucose (74-99) mg/dL POC Glucose (mg/dL) 135 H 154 H (75-99) mg/dL 03/19/21 03/19/21 03/19/21 Range/Units 06:19 06:44 11:58 RBC (3.80-5.40) m/uL Hgb (11.4-16.0) gm/dL Hct (34.0-46.0) % Sodium 134 L (137-145) mmol/L Chloride 97 L (98-107) mmol/L Carbon Dioxide 33 H (22-30) mmol/L Glucose 136 H (74-99) mg/dL POC Glucose (mg/dL) 133 H 137 H (75-99) mg/dL Assessment and Plan Plan: Assessment: #1. Severe aortic stenosis, status post aortic valve replacement, on 03/14/2021, postoperative day #5 #2. Routine ventilator management, patient successfully weaned and extubated within 6 hours of OR exit time on 03/14/2021 #3. History of bicuspid aortic stenosis #4. Hypertension #5. Fibromyalgia #6. History of ulcerative colitis #7. Lupus #8. Paroxysmal atrial tachycardia and fibrillation #9. Post-operative A. fib with RVR, patient is currently back in sinus mechanism after being initiated on amiodarone infusion per protocol Plan: Today's chest x-ray has been reviewed Patient received an additional dose of IV Lasix She is maintaining stable O2 saturations on room air Remains in sinus mechanism, IV amiodarone has been converted to oral amiodarone Anticoagulation and rate control medications per CT surgery cardiology Continue encouraging deep breathing and coughing We'll continue to follow I performed a history & physical examination of the patient and discussed their management with my nurse practitioner, Stephania Ying. I reviewed the nurse practitioner's note and agree with the documented findings and plan of care. Lung sounds are positive for diminished breath sounds throughout the lung beach. The findings and the impression was discussed with the patient. I attest to the documentation by the nurse practitioner. Time with Patient: Less than 30
--- NOTE | 2021-03-19 13:55 | P.PN ---
Subjective This is a pleasant 61 years old female with past medical history of hypertension, hyperlipidemia, migraine headache, rheumatoid arthritis, ulcerativ e colitis, lupus, pancreatitis. History of anxiety. Patient was admitted for severe aortic valve stenosis status post aortic valve replacement with bioprosthetic aortic valve. Today is postoperative day #1. Patient today is lying in chair in the ICU, still in distress due to pain at the surgical site. She is hemodynamically stable Glucose control CBC and BMP and liver enzymes are unremarkable Patient is currently is on aspirin, Plavix, Zetia and metoprolol 03/16/2021 Patient generally doing well, this chest pain. No respiratory symptoms. Chest Place. She Is Hemodynamically Stable, Oxygen Saturation Long 90s. Mild Leukocytosis Mostly Reactive at 12.5 K. Hemoglobin Stable at 10.2. She Is Getting 1-2 Units of Insulin Every Hour, and Is on Diet, She Is with Hemoglobin A1c of 5.7%, Discussed with the Staff Patient Consultation to Insulin Sliding Scale. Normal bowel movement but she does not want laxative Several consultants on the case 03/17/2021 Patient is awake and alert, she is complaining of from some pain at surgical site. She is hemodynamically stable Labs showed only mild leukocytosis which is stable. Sugar is controlled 117-127 today She remains on aspirin and Plavix, metoprolol 03/18/2021 Patient was doing well and clinically stable however overnight she developed tachycardia with a heart rate around 170 secondary to A. fib with RVR Patient currently her heart rate is controlled Y on amiodarone drip Chest x-ray repeated today showing bilateral infiltrates suspicious for atelectasis. Most likely secondary to fluid, 1 dose of IV Lasix. WBC back to normal today Sugars controlled BMP and CBC other than that are unremarkable. Current cardiac medication like aspirin and Plavix, metoprolol and lisinopril 03/19/2021 Patient sitting in chair, with no chest pain or dyspnea. Her amiodarone drip was stopped and switched to amiodarone 400 twice a day by cardiology and cardiothoracic surgery team. Patient denies any other complaints and she asking me if she can go home today. She is hemodynamically stable heart rate is in 60s and 70s. Chest x-ray showing mild CHF on patient got 1 dose of Lasix and potassium chloride Labs are stable Remains on aspirin and Plavix Several consultants on the case We will keep following Objective - Vital Signs Vital signs: Vital Signs Temp 98.5 F 03/19/21 11:39 Pulse 63 03/19/21 11:39 Resp 18 03/19/21 11:39 BP 107/55 03/19/21 11:39 Pulse Ox 100 03/19/21 11:39 Intake & Output 03/18/21 03/19/21 03/19/21 18:59 06:59 18:59 Intake Total 490 46.112 Output Total 1300 600 Balance -810 -553.888 Weight 85.7 kg Intake: Intake, IV Titration 250 46.112 Amount Amiodarone 450 mg In 250 46.112 Dextrose 5% in Water 250 ml @ 0.5 MG/MIN 16.667 mls/hr IV .Q15H PRN Rx#: [id number] Oral 240 Output: Urine 1300 600 Other: Voiding Method Toilet Toilet Toilet # Voids 2 ABP, PAP, CO, CI - Last Documented Arterial Blood Pressure 133/60 Pulmonary Artery Pressure 23/9 Cardiac Output 4.9 Cardiac Index 2.6 - Exam GENERAL: The patient is alert and oriented x3, not in any acute distress. Well developed, well nourished. HEENT: Pupils are round and equally reacting to light. EOMI. No scleral icterus. No conjunctival pallor. Normocephalic, atraumatic. No pharyngeal erythema. No thyromegaly. -CARDIOVASCULAR: S1 and S2 present. No murmurs, rubs, or gallops. Chest wall wound with dressing is in place, we will defer the rest of the exam to surgical team PULMONARY: Chest is clear to auscultation, no wheezing or crackles. ABDOMEN: Soft, nontender, nondistended, normoactive bowel sounds. No palpable organomegaly. MUSCULOSKELETAL: No joint swelling or deformity. EXTREMITIES: No cyanosis, clubbing, or pedal edema. NEUROLOGICAL: Gross neurological examination did not reveal any focal deficits. SKIN: No rashes. No petechiae - Labs CBC & Chem 7: 03/19/21 06:19 03/19/21 06:19 Labs: Abnormal Lab Results - Last 24 Hours (Table) 03/18/21 03/18/21 03/19/21 Range/Units 17:12 20:04 06:19 RBC 2.88 L (3.80-5.40) m/uL Hgb 9.3 L (11.4-16.0) gm/dL Hct 26.8 L (34.0-46.0) % Sodium (137-145) mmol/L Chloride (98-107) mmol/L Carbon Dioxide (22-30) mmol/L Glucose (74-99) mg/dL POC Glucose (mg/dL) 135 H 154 H (75-99) mg/dL 03/19/21 03/19/21 03/19/21 Range/Units 06:19 06:44 11:58 RBC (3.80-5.40) m/uL Hgb (11.4-16.0) gm/dL Hct (34.0-46.0) % Sodium 134 L (137-145) mmol/L Chloride 97 L (98-107) mmol/L Carbon Dioxide 33 H (22-30) mmol/L Glucose 136 H (74-99) mg/dL POC Glucose (mg/dL) 133 H 137 H (75-99) mg/dL Assessment and Plan Assessment: Severe aortic valve disease status post aortic valve replacement with bioprosthetic valve Hypertension Hyperlipidemia History of migraine headache History of rheumatoid arthritis History of ulcerative colitis History of lupus History of pancreatitis Plan: This is a pleasant 61 years old female who presents for aortic valve replacement. Patient currently kept in the ICU, she is on aspirin, Plavix, metoprolol and Zetia. Monitor glucose with insulin sliding scale Cardiothoracic surgery team, pulmonary team and cardiology team on the case Labs and medication were reviewed.. Continue same treatment. Continue with symptomatic treatment. Resume home medication. Monitor lytes and vitals. DVT and GI prophylaxis. Further recommendations depends on the clinical course of the patient DVT prophylaxis: Subcutaneous heparin GI Prophylaxis: Ppi Prognosis is guarded
[2021-03-19 15:29] VITALS: BP 141/70; PULSE 72
--- NOTE | 2021-03-19 17:13 | P.DS ---
Providers Date of admission: 03/14/21 05:32 Expected date of discharge: 03/19/21 Attending physician: Sergey Mercado Consults: 03/14/21 12:38 Consult Physician Routine Consulting Provider: Lewis Foster Consult Reason/Comments: Chemical Pathologist Consult: post cardiac surgery Do you want consulting provider notified?: Yes Consult Physician Routine Consulting Provider: Belen Caon Consult Reason/Comments: gal gibbs; Mary Beth patient Do you want consulting provider notified?: Yes Consult Physician Routine Consulting Provider: Jojo Pastrana Consult Reason/Comments: Supervisor Drapery Hanging Consult: post cardiac surgery Do you want consulting provider notified?: Yes Primary care physician: Aubrey Clinton MD Hospital Course: FINAL DIAGNOSIS: 1. Severe aortic valve stenosis, status post aortic valve replacement with a 23 mm Li Inspiris bioprosthetic aortic valve 2. History of paroxysmal atrial tachycardia and fibrillation, status post clipping of her left atrial appendage and removal of loop recorder 3. Hypertension 4. Hyperlipidemia 5. Fibromyalgia 6. Lupus 7. Rheumatoid arthritis 8. GERD 9. Memory impairment 10. Lifetime nonsmoker 11. Postoperative acute blood loss anemia, expected given hemodilution and cardiopulmonary bypass pump 12. Postoperative atrial fibrillation, currently sinus 13. Exposure to Covid, no vaccination PRINCIPAL PROCEDURE: 1. Aortic valve replacement with a 23 mm Li Inspiris bioprosthetic aortic valve. 2. Clip ligation of the left atrial appendage with a 35 mm Atriclip. 3. Intraoperative transesophageal echocardiogram. 4. Removal of her left anterior chest wall loop recorder. HISTORY OF PRESENT ILLNESS: This is a 61-year-old female patient who is followed by Dr. Luis Clinton on an outpatient basis for her primary care services. She also follows with Dr. Mcneill [facility] for her cardiac care. She has a past medical history significant for hypertension, hyperlipidemia, fibromyalgia, severe aortic valve stenosis, paroxysmal atrial tachycardia and fibrillation, lupus, rheumatoid arthritis, GERD, memory impairment and she is a lifetime nonsmoker. Recently, the patient has been experiencing progressive shortness of breath and episodes of chest discomfort. Due to her shortness of breath she underwent a transesophageal echocardiogram and cardiac catheterization on 12/27/2020. The transesophageal echocardiogram demonstrated a bicuspid aortic valve with fusion of the noncoronary and left coronary cusps, severe aortic valve calcification and sclerosis, a V-max of 4.7 m/s, a mean gradient of 56 mmHg, mild to moderate aortic valve regurgitation, mild mitral valve regurgitation and trace tricuspid valve regurgitation. Also during the transesophageal echocardiogram demonstrated a left ventricular size and systolic function to appear normal with an ejection fraction of 60%. Her cardiac catheterization results demonstrated relatively normal coronary arteries other than a mid left anterior descending coronary artery stenosis of 40%. Due to the patient's above-mentioned symptoms and findings on her above-mentioned studies a consult was placed to Dr. Sergey Mercado from cardiothoracic surgery for further evaluation and treatment recommendations. The patient met with Dr. Mercado, the findings on her cardiac catheterization and transesophageal echocardiogram were discussed with the patient, treatment options were discussed including aortic valve replacement. Risks and benefits of the surgery were discussed and knowing and understanding the risks of surgery the patient wished to proceed with the surgical option. HOSPITAL COURSE: The patient was brought to the hospital on 03/14/2021, prepared in the usual fashion and subsequently taken to the operating room where Dr. Sergey Mercado performed an aortic valve replacement with a 23 mm Li Inspiris bioprosthetic aortic valve clip ligation of the left atrial appendage with a 35 mm Atriclip, intraoperative transesophageal echocardiogram and removal of her left anterior chest wall loop recorder. Upon completion of the surgery the patient was transferred to the cardiovascular intensive care unit where she was recovered and monitored hemodynamically. She was extubated, all lines, tubes and supportive drips were discontinued when appropriate and she was transferred to the cardiac stepdown unit for further monitoring and rehabilitation. Her oxygen was titrated down, she continued to work with physical and occupational therapy, she was tolerating an oral diet, her pain was well-controlled and she was ready to be discharged home with [facility] care on postoperative day #6. She has received written and verbal instructions regarding her medications, activity restrictions, signs and symptoms requiring physician notification and her follow-up appointments. COMPLICATIONS: Her postoperative period was complicated by some paroxysmal atrial fibrillation which is a known common occurrence after open heart surgery and was treated accordingly. Patient Condition at Discharge: Stable Plan - Discharge Summary Discharge Rx Participant: Yes New Discharge Prescriptions: New Atorvastatin [Lipitor] 40 mg PO DAILY #30 tab Aspirin 325 mg PO DAILY #30 tab Amiodarone [Cordarone] 400 mg PO BID #44 tab Metoprolol Tartrate [Lopressor] 25 mg PO TID #90 tab Clopidogrel [Plavix] 75 mg PO DAILY #30 tab Pantoprazole [Protonix] 40 mg PO AC-BRKFST #30 tablet. Sendheeraj-Docusate Sodium [Senokot-S] 2 each PO HS PRN tab PRN Reason: Constipation Acetaminophen Tab [Tylenol] 650 mg PO Q4HR PRN tab PRN Reason: Fever And/ Or Pain Continue diazePAM [Valium] 2 mg PO BID PRN PRN Reason: Anxiety oxyCODONE HCL [OxyIR] 5 mg PO Q6H PRN PRN Reason: Pain Cyclobenzaprine [Flexeril] 10 mg PO Q8H PRN PRN Reason: Muscle Pain/Spasm Ergocalciferol (Vitamin D2) [Vitamin D2] 50,000 unit PO MOFR bisacodyL [Dulcolax] 5 mg PO DAILY PRN PRN Reason: Constipation Folic Acid 1 mg PO BID Cannabidiol (Cbd) [Epidiolex] 0 mg PO DIRECTED PRN PRN Reason: Pain Ezetimibe [Zetia] 10 mg PO DAILY@1200 Discontinued Ondansetron [Zofran ODT] 4 mg PO TID PRN PRN Reason: Nausea And Vomiting lisinopriL [Zestril] 20 mg PO HS Metoprolol Succinate [Toprol XL] 25 mg PO DAILY Discharge Medication List Cyclobenzaprine [Flexeril] 10 mg PO Q8H PRN 05/28/16 [History] diazePAM [Valium] 2 mg PO BID PRN 05/28/16 [History] oxyCODONE HCL [OxyIR] 5 mg PO Q6H PRN 05/28/16 [History] Ergocalciferol (Vitamin D2) [Vitamin D2] 50,000 unit PO MOFR 05/21/17 [History] Ezetimibe [Zetia] 10 mg PO DAILY@1200 12/25/20 [History] bisacodyL [Dulcolax] 5 mg PO DAILY PRN 12/25/20 [History] Folic Acid 1 mg PO BID 02/19/21 [History] Cannabidiol (Cbd) [Epidiolex] 0 mg PO DIRECTED PRN 03/11/21 [History] Acetaminophen Tab [Tylenol] 650 mg PO Q4HR PRN tab 03/19/21 [Rx] Amiodarone [Cordarone] 400 mg PO BID #44 tab 03/19/21 [Rx] Aspirin 325 mg PO DAILY #30 tab 03/19/21 [Rx] Atorvastatin [Lipitor] 40 mg PO DAILY #30 tab 03/19/21 [Rx] Clopidogrel [Plavix] 75 mg PO DAILY #30 tab 03/19/21 [Rx] Metoprolol Tartrate [Lopressor] 25 mg PO TID #90 tab 03/19/21 [Rx] Pantoprazole [Protonix] 40 mg PO AC-BRKFST #30 tablet. 03/19/21 [Rx] Sennosides-Docusate Sodium [Senokot-S] 2 each PO HS PRN tab 03/19/21 [Rx] Follow up Appointment(s)/Referral(s): Junaid Mcneill MD [STAFF PHYSICIAN] - 04/02/21 2:00 pm (At the [employer] office in the front of [facility]) Annika Loredo NPC [Nurse Practitioner] - 03/26/21 1:15 pm [facility] [NON-STAFF] - 4 Weeks (You will receive a phone call approximately 4-6 weeks after surgery for cardiac rehab evaluation) Ani Collado NPC [Nurse Practitioner] - 04/04/21 3:15 pm [facility], [NON-STAFF] - Aubrey Clinton MD [Primary Care Provider] - 2 Weeks Sergey Mercado MD [STAFF PHYSICIAN] - 4 Weeks Ambulatory/Diagnostic Orders: Complete Blood Count w/diff [LAB.AMB] Time Frame: 3 Days, Location: None Selected Comprehensive Metabolic Panel [LAB.AMB] Time Frame: 3 Days, Location: None Selected Patient Instructions/Handouts: Aortic Valve Replacement (DC), Sternal Precautions (GEN) Activity/Diet/Wound Care/Special Instructions: DISCHARGE INSTRUCTIONS: 1. No driving for 4 weeks, or until physician gives their ok. 2. The patient should sleep in their own bed, no medical bed needed. 3. Stairs are not an issue. If the bedroom is upstairs, it is advised that the patient go up at night and down in the morning for the first week. Go slowly, using handrail and take 1 step at a time. 4. SELENE hose are to be worn for 30 days or until physician discontinues. 5. Heart hugger is to be worn 100% of the time until physician discontinues.(except when showering) 6. No lifting, pushing, or pulling more than 10 pounds for 12 weeks. The physician will advise of any restriction changes. 7. The patient is expected to continue the prescribed walking program. 8. Continue pain control per as needed orders. 9. Continue with incentive spirometry and splinting/heart hugger until otherwise directed by the physician. 10. Must shower daily using liquid antibacterial soap and a separate white washcloth for each individual incision. 11. Routine sternal incision care. No powders, lotions, ointments on incisions. No dressings are necessary on incisions unless they are draining. Dermabond tape is to remain on sternal incision until surgeon follow-up. 12. Please call surgeon/[facility] for temp greater than 101 F or purulent drainage from incisions. 13. All prescriptions given by surgeon for 30 days. Refills need to be filled through evidence custodian/primary care physician. 14. A Red armband has been placed on the patient. It should be worn for 30 days post surgery and will be removed by the cardiac surgeons. If an ER visit is necessary, please make sure the number on the Red armband is called. 15. You have been referred to and are expected to begin Cardiac Rehab in approximately 4-6 weeks. HOME HEALTH SERVICES TO PROVIDE: RN SKILLED HOME CARE SERVICES FOR POST-OP SURGICAL PATIENTS WITH THE FOLLOWING: Coronary Artery Bypass Surgery (CABG), Mitral Valve Replacement/Repair ( MVR), Aortic Valve Replacement/Repair (AVR) RN TO CONTINUE EDUCATION FROM ``ROAD TO A HEALTH HEART PATIENT EDUCATION MANUAL (GIVEN TO PATIENT IN THE HOSPITAL) MEDICATION RECONCILIATION WITH EDUCATION NEEDED ON FIRST HOME VISIT EMPHASIZE IMPORTANCE OF WEARING BREAST SUPPORT/HEART HUGGER ENCOURAGE USE OF INCENTIVE SPIROMETER 10 X EVERY HOUR WHILE AWAKE ENCOURAGE UTILIZATION OF LOWER EXTREMITY COMPRESSION STOCKINGS/SELENE HOSE and ELEVATE LEGS ABOVE LEVEL OF HEART WHILE AT REST. ENCOURAGE AMBULATION 3-5x/day INCREASING TOLERATES, WHILE AVOIDING EXTREMES IN TEMPERATURE FREQUENCY: RN TO OPEN THE PATIENT WITHIN 24 HOURS OF DISCHARGE FROM THE HOSPITAL WITH [place]HEALTH [place] AT [facility] [place]IT 2-3 X A WEEK FOR 4 WEEKS ESTABLISHED BY PATIENT NEEDS. LABORATORY: CBC, CMP TO BE DRAWN ON THE THIRD DAY HOME, (RAN STAT) FAX RESULTS TO [phone]. TELEHEALTH PARAMETERS: WEIGHT: NOTIFY MD OF WEIGHT GAIN OF 2 LBS IN 24 HOURS OR 5 LBS IN ONE WEEK HR: NOTIFY MD OF HR <55 BPM OR HR>100 BPM BP: NOTIFY MD IF BP <90/55 OR BP>140/100 O2 SAT: NOTIFY MD IF PO2<93% ON ROOM AIR SEND TELEHEALTH REPORT TO MOLD PRESS OPERATOR AND CARDIOVASCULAR SURGEON THE FIRST WEEK OF CARE AND THEN BI-WEEKLY. PLEASE ADDITIONALLY COMMUNICATE ANY ABNORMALS AND NEW FINDINGS TO THE SURGEONS OFFICE. For any questions or concerns please call yarn polishing machine operator Annika @ or Curt @ Discharge Disposition: HOME WITH HOME HEALTH SERVICES
[2021-03-19] MEDS ORDERED: CYCLOBENZAPRINE 10 MG TAB ONE (23:59)
--- NOTE | 2021-03-20 10:58 | CDI ---
Documentation Clarification Form Date: 03/20/21 From: Jolanta Garcia Admit Date: 03/14/2021 05:32:00 AM Patient Name: Kim Chowdhury Visit Number: [id number] Discharge Date: 03/19/2021 05:55:00 PM ATTENTION: The Clinical Documentation Specialists (CDI) and [facility] Coding Staff appreciate your assistance in clarifying documentation. Please respond to the clarification below the line at the bottom and electronically sign. The CDI & [facility] Coding staff will review the response and follow-up if needed. Please note: Queries are made part of the Legal Health Record. If you have any questions, please contact the author of this message via ITS. Dr. Ligia Gerber, Your patient has the documented diagnosis of unspecified mild CHF exacerbation in your 03/19 progress note. Additional information regarding the [type, acuity] of CHF is requested. History/Risk Factors: HTN, bicuspid aortic valve, UC, ABLA, HLD, PAF, SVT Clinical Indicators: 03/19 PN "Today's chest x-ray shows bilateral pleural effusions and diffuse interstitial pattern consistent with fluid overload and mild CHF exacerbation." VS/Pulse OX: T-98.4, P-63, R-18, BP-107/55 BNP: none MARLENE Results: EF-65%, left ventricle hypertrophy, O2 sat-100 03/19 Chest X Ray: Heart is enlarged and there is bilateral pleural effusions with diffuse interstitial pattern. Treatment: Lasix 20 mg IV on 03/16, 03/17, 03/18, 03/19 In your professional opinion, can you please clarify the [acuity and type] of CHF if known? [ ] Acute Systolic Heart Failure (reduced EF) [ ] Acute on Chronic Systolic Heart Failure (reduced EF) [ ] Acute Diastolic Heart Failure (preserved EF) [ ] Acute on Chronic Diastolic Heart Failure (preserved EF) [ ] Other, please specify [ ] Unable to determine Chronic systolic heart failure, reduced ejection fraction MTDD
--- NOTE | 2021-03-20 11:05 | CDI ---
Documentation Clarification Form Date: 03/20/21 From: Jolanta Garcia Admit Date: 03/14/2021 05:32:00 AM Patient Name: Kim Chowdhury Visit Number: [id number] Discharge Date: 03/19/2021 05:55:00 PM ATTENTION: The Clinical Documentation Specialists (CDI) and [facility] Coding Staff appreciate your assistance in clarifying documentation. Please respond to the clarification below the line at the bottom and electronically sign. The CDI & [facility] Coding staff will review the response and follow-up if needed. Please note: Queries are made part of the Legal Health Record. If you have any questions, please contact the author of this message via ITS. Dr. Shukri Pineda, Atrial Flutter is documented in your 03/18 & 03/19 progress notes. Additional clarification regarding the type of Atrial Flutter is requested. History/Risk factors: PAF, SVR, HTN, bicuspid aortic valve, UC, ABLA, HLD Clinical Indicators: Per 03/18 PN "Yesterday afternoon around 5pm, patient went into atrial fibrillation with RVR HR 170s, she was initiated on amiodarone protocol, telemetry reviewed patient was in atrial fibrillation and 2:1 atrial flutter around 10pm. EKG/telemetry: none available Treatment: Amiodarone 400 mg PO BID Please clarify the type of Atrial Flutter, if known: [X ] Typical/Type I [ ] Atypical/Type II [ ] Other, please specify [ ] Unable to determine MTDD
== END 2021-03-19 17:55 | disposition home health service (06) | DRG 220 ==
LOC: 2ORMAIN 05:32 → 2SICU 12:38 → 3SCARD 03-16 18:52
PROVIDERS: ADMIT Thoracic Surgery (Cardiothoracic Vascular Surgery); ATTEND Thoracic Surgery (Cardiothoracic Vascular Surgery)
PROC: 0JPT32Z Removal of Monitoring Device from Trunk Subcutaneous Tissue and Fascia, Percutaneous Approach (ICD-10-PCS; principal; 2021-03-14 08:00)
PROC: 02RF08Z Replacement of Aortic Valve with Zooplastic Tissue, Open Approach (ICD-10-PCS; principal; 2021-03-14 08:00)
PROC: 5A1221Z Performance of Cardiac Output, Continuous (ICD-10-PCS; principal; 2021-03-14 08:00)
PROC: 02L70CK Occlusion of Left Atrial Appendage with Extraluminal Device, Open Approach (ICD-10-PCS; principal; 2021-03-14 08:00)
PROC: B24BZZ4 Ultrasonography of Heart with Aorta, Transesophageal (ICD-10-PCS; principal; 2021-03-14 08:00)
DX: Q23.1 Congenital insufficiency of aortic valve (principal); I11.0 Hypertensive heart disease with heart failure; I50.22 Chronic systolic (congestive) heart failure; I48.3 Typical atrial flutter; K51.90 Ulcerative colitis, unspecified, without complications; D62 Acute posthemorrhagic anemia; I47.1 Supraventricular tachycardia; J98.11 Atelectasis; E78.5 Hyperlipidemia, unspecified; I48.0 Paroxysmal atrial fibrillation; M06.9 Rheumatoid arthritis, unspecified; I25.10 Atherosclerotic heart disease of native coronary artery without angina pectoris; D72.829 Elevated white blood cell count, unspecified; M79.7 Fibromyalgia; G62.9 Polyneuropathy, unspecified; K59.00 Constipation, unspecified; K21.9 Gastro-esophageal reflux disease without esophagitis; L30.9 Dermatitis, unspecified; Z79.899 Other long term (current) drug therapy; Z86.69 Personal history of other diseases of the nervous system and sense organs; Z87.11 Personal history of peptic ulcer disease; Z90.49 Acquired absence of other specified parts of digestive tract; Z90.710 Acquired absence of both cervix and uterus; Z90.89 Acquired absence of other organs; Z98.891 History of uterine scar from previous surgery; Z87.19 Personal history of other diseases of the digestive system; Z86.73 Personal history of transient ischemic attack (TIA), and cerebral infarction without residual deficits; Z87.42 Personal history of other diseases of the female genital tract; Z86.59 Personal history of other mental and behavioral disorders; Z87.820 Personal history of traumatic brain injury; Z87.39 Personal history of other diseases of the musculoskeletal system and connective tissue; Z98.890 Other specified postprocedural states; Z88.8 Allergy status to other drugs, medicaments and biological substances; Z88.6 Allergy status to analgesic agent; Z91.041 Radiographic dye allergy status; Z91.013 Allergy to seafood; Z80.9 Family history of malignant neoplasm, unspecified
CPT/HCPCS: 36415; 71045; 71046; 80048; 80053; 80061; 80074; 81003; 82330; 82805; 83036; 83735; 84439; 84443; 85025; 85027; 85520; 85610; 85730; 86850; 86891; 86900; 86901; 86920; 87070; 87086; 88300; 88305; 88311; 93880; 93922; 93923; 93970; 94002; 94150; 94640; 94760

== ENCOUNTER 2021-04-18 00:30 | Emergency (ER) | payer OTHER ==
[2021-04-18 00:37] VITALS: TEMP 98.1
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
[2021-04-18] MEDS ORDERED: methylPREDNISolone SOD SUCCI 125 MG/2 ML VIAL IV STA (02:53)
[2021-04-18] MEDS ORDERED: diphenhydrAMINE 50 MG/ML 1 ML VIAL IVP STA (02:53)
[2021-04-18] MEDS ORDERED: FAMOTIDINE 20 MG/2 ML VIAL IV STA (02:53)
[2021-04-18 03:15] VITALS: RESP 16
--- NOTE | 2021-04-18 03:32 | CT ---
EXAMINATION TYPE: CT chest angio for PE DATE OF EXAM: 04/18/2021 COMPARISON: 08/02/2016. HISTORY: SOB, hx of heart cath CT DLP: 395.2 mGycm Automated exposure control for dose reduction was used. CONTRAST: Performed with IV Contrast, patient injected with 55 mL of Isovue 370. There are 3-D post processed images. There is small left pleural effusion. There is some patchy atelectasis left lung base. There is small pericardial effusion. Heart size is normal. There is enlarged paratracheal lymph node measuring 3.8 x 2.2 cm. This is partly calcified. There are smaller mediastinal lymph nodes that measure up to 1.5 cm. Thoracic aorta is atheromatous. There are no hilar masses. There is normal contrast opacification of the pulmonary arteries. There are no filling defects. There is some spurring in the thoracic spine. There is no compression fracture. There are sternal wir es. Upper abdominal soft tissues are intact. IMPRESSION: There is some mediastinal adenopathy with calcification slightly increased compared to old exam and c onsistent with benign disease. No evidence of pulmonary embolism. There is a new small pericardial effusion compared to old exam. There is small left pleural effusion and left basilar atelectasis which is new compared to old exam.
[2021-04-18 04:37] VITALS: PULSE 78
[2021-04-18 06:33] VITALS: BP 151/83
== END 2021-04-18 06:54 | disposition home or self-care (01) ==
LOC: EC 00:30
DX: J90 Pleural effusion, not elsewhere classified (principal); M25.512 Pain in left shoulder; I10 Essential (primary) hypertension; E78.5 Hyperlipidemia, unspecified; K21.9 Gastro-esophageal reflux disease without esophagitis; M79.7 Fibromyalgia; M06.9 Rheumatoid arthritis, unspecified; G43.909 Migraine, unspecified, not intractable, without status migrainosus; F41.9 Anxiety disorder, unspecified; Z79.82 Long term (current) use of aspirin
CPT/HCPCS: 36415; 93005; 80048; 84484; 71275; 99285; 96374; 96375 ×2; J1200; J2930; Q9967